=== PATIENT | male | born 1970 | race Caucasian/White ===

== ENCOUNTER → 2019-07-25 08:01 | Outpatient (CLI) | payer OTHER, SELFPAY ==
--- NOTE | 2019-07-25 08:11 | EKG12_ITS ---
Test Reason : PRE CR Blood Pressure : / mmHG Vent. Rate : 057 BPM Atrial Rate : 057 BPM P-R Int : 174 ms QRS Dur : 090 ms QT Int : 416 ms P-R-T Axes : 033 -06 007 degrees QTc Int : 404 ms Poor data quality, interpretation may be adversely affected Sinus bradycardia Otherwise normal ECG Confirmed by SHAYNA GOVEA, TRANG ([id number]), associate editor CLAUDIA PABLO ([id number] on 07/26/2019 11:07:40 AM Referred By: [facility] Confirmed By:TRANG CORRAL MD
--- NOTE | 2019-07-25 08:38 | PCM.CR.HP2 ---
CR - History & Physical - General Arrival date:: 07/25/19 Arrival time:: 08:00 Date of Referral:: 05/15/19 Date of CR Evaluation:: 07/25/19 Referring Physician: EMERSON WIGGINS Primary Diagnosis: PCI WITH STENT - History of Present Cardiac Event Onset Date: Enter Onset Date of cardiac illnesses in Comment field below Current stable Angina Pectoris:: No Acute Myocardial Infarction within 12 months:: Yes Coronary Artery Bypass Graft:: No Heart valve replacement or repair:: No PTCA or coronary stenting:: Yes Heart or Heart-Lung Transplant:: No Heart Failure EF <35%:: No Type of Symptoms:: CP, ACHE, TIGHTNESS Interventions with present event:: STENT X1 Were there any complications?: NONE - Medications Home Medications: Ambulatory Orders Medication Instructions Recorded Aspirin [Aspir 81] 81 mg PO 07/25/19 Atorvastatin Calcium [Lipitor] 80 mg PO QHS 07/25/19 Clopidogrel Bisulfate [Clopidogrel] 75 mg PO 07/25/19 Glipizide [Glucotrol Xl] 2.5 mg PO 07/25/19 Lisinopril [Zestril] 10 mg PO 07/25/19 Metformin HCl [Glucophage] 250 mg PO BID 07/25/19 Metoprolol Tartrate [Lopressor 12.5 mg PO BID 07/25/19 (Beta Livan)] - Allergies Allergies/Adverse Reactions: Allergies No Known Allergies Allergy (Verified 08/18/16 10:56) - Sleep Disorder Evaluation Hx of Sleep Apnea: No Do you snore loudly (louder than talking or can be heard through closed doors)?: Yes Do you often feel tired/ fatigued/ sleepy during daytime?: Yes Has anyone observed you stop breathing during sleep?: No History of Hypertension (for STOP score): Yes - PT STATES HE HAS [facility] INSURANCE ONLY AND WOULD HAVE TO GO THROUGHT THEM STOP Results: Positive Advanced Directives - Advanced Directives Power of Director Of Investigations: No - PT AND INFORMED OF [facility] MED RECORDS AVAIL FORMS Living Will: No Advance Directives Information Provided: No Advance Directives on File: No DNR Order?:: No Past Medical History - Family History Summary Family History: Family History (Last Updated 07/25/19 @ 09:09 by Hilda Samuel RN) Other Cardiovascular disease Social History - Smoking History Smoking Status: Former smoker Years Smokin Packs Smoked per Day: 2 Hx Smoking Cessation Date: 05/18/19 Hx Tobacco Use: Yes Hx Smoking Exposure: Yes - Alcohol Use Alcohol Usage: No - Substance Abuse Hx Substance Use: No - . - Occupation Occupation (List type of work in comments):: Employed Hours worked per day:: 8 - Hobbies, Recreation, Social Activities Hobbies: Watch TV - [employer] Recreational Activities: I am able to engage in a few activities Social Environment - Status Marital Status: - Current Living Arrangements Living Environment:: Spouse - Children How many children do you have?: 2 Do any of your children live nearby?: Yes - Safety Do you feel safe in your surroundings?: Yes - Assistance Do you need any assistance at home?: NONE Review of Systems - Review of Systems Hints: Right click = Denies ([place]ash). Left click = Reports ([place]) Review of Present Symptoms: Reports: Shortness of Breath with Exertion, Angina - SOB,HR INCREASE, EXAUSTED. Denies: Shortness of Breath at Rest, PVD, Operative Discomfort - Pain Is Patient Pain Free?: Yes Risk Factor Assessment - Chief Complaint Chief Complaint: CURRENT PCI PT WHO PRESENTS FOR INITIAL CR EVAL - Vital Signs Temperature: 98.6 F Respiratory Rate: 20 Pulse Ox: 96 Blood Pressure: 108/70 Nailbeds:: PINK - Pulse Pulse Rate: 58 Pulse Rhythm: Regular - Hypertension How long have you been treated?: SINCE STENT On medication(s)?: YES, LISINOPRIL, METOPROLOL Blood Pressure Sitting - Left Arm: 108/70 - Stress Stress: Recent, Long-standing, Work-related - Blood Cholesterol/Lipids Total Cholesterol (mg/dL) Goal = less than 200 mg/dL: 201 HDL Cholesterol (mg/dL) Goal = less than 40 mg/dL: 33 LDL Cholesterol (mg/dL) Goal = less than 70 mg/dL: 140 Triglycerides (mg/dL) Goal = less than 150 mg/dL: 114 - Diabetes Diabetic History: Type II Nutrition Referral for Diabetes: No - Obesity Height: 6 ft Weight:: 258 lb Weight in Pounds: 258.0 lbs Weight Source: Stated by Patient Body Mass Index (BMI): 34.9 Nutritional Referral for Obesity: No - NURITIONAL CONSULT THROUGH CT - Physical Inactivity Physical Inactivity: None - Risk Stratification Risk Guidelines: Lowest Risk: Risk Factor for Hypertension, Moderate Risk: Risk Factor for Smoking, Risk Factor for Dyslipidemia, Risk Factor for Diabetes, Risk Factor for Obesity, Risk Factor for Sedentary Lifestyle, Risk Factor for Depression - For Smoking Smoking Risk Guidelines: Smoking Low Risk: None or quit greater than 6 months ago. Smoking Moderate Risk: Smoker or quit 6 months or less ago. Smoking High Risk: Smoker - For Dyslipidemia Dyslipidemia Risk Guidelines: Low Risk: Moderate Risk: High Risk: 15-25% fat 25.1-29% fat >/= 30% fat. <7% sat fat 7-9% sat fat >9% sat fat. <150 mg chol 150-299 mg chol >/= 300 mg chol. LDL <100 LDL 100-129 LDL >/= 130. Chol/HDL ratio <5.0 Chol/HDL ratio 5.0-6.0 Chol/HDL ratio >6.0. Triglycerides <100 Triglycerides 100-149 Triglycerides >/= 150 - For Diabetes Mellitus Diabetes Risk Guidelines: Diabetes Low Risk: HgA1c <6.5% and/or FBG <120. Diabetes Moderate Risk: HgA1c 6.6-7.9% and/or FBG 120-180. Diabetes High Risk: HgA1c >/= 8% and/or FBG >180 - For Obesity/Overweight Obesity/Overweight Risk Guidelines: Obesity Low Risk: BMI <25.0. Obesity Moderate Risk: BMI 25-29.9. Obesity High Risk: BMI >/= 30.0 - For Hypertension Hypertension Risk Guidelines: Hypertension Low Risk: Systolic <120 and Diastolic <80. Hypertension Moderate Risk: Systolic 120-139 and Diastolic 80-89. Hypertension High Risk: Systolic >/= 140 and Diastolic >/= 90 - For Sedentary Lifestyle Sedentary Lifestyle Risk Guidelines: Sedentary Lifestyle Low Risk: >/= 1,500 kcal/week. Sedentary Lifestyle Moderate Risk: 700-1,499 kcal/week. Sedentary Lifestyle High Risk: < 700 kcal/week - For Depression Depression Risk Guidelines: Depression Low Risk: Not clinically depressed. Depression Moderate Risk: Mildly depressed. Depression High Risk: Clinically depressed - Family History Family History: Family History (Last Updated 07/25/19 @ 09:09 by Hilda Samuel RN) Other Cardiovascular disease Motivation - Motivation to Participate On a scale of 1 to 10, how prepared are you to commit to attending program?: 10 What do you see as barriers to successfully being able to complete the program?: POSSIBLE WORK AT LATER DATE What do you see as the benefits of succesfully completing the program? In other words, what do you hope to get out of participating in the program?: I WANT TO START FEELING BETTER Are there issues you are dealing with that will interfere with completing the program?: NONE Do you have a spouse or signficant other, family or friends who will help support you to complete the program?: SPOUSE
--- NOTE | 2019-07-25 08:39 | PCM.CR.ITP ---
Diagnosis - General Information Personal Learning Style:: Audio/Visual, Demonstration, Group, Individual Preference, Written Barriers to Learning: No Barriers Gave educational material for:: Treating Heart Disease, Emotions & Heart Disease, Stress Management & Relaxation, Sleep Disorders & Heart Disease, How The Heart Works - PT AND GIVEN THE ON-LINE PAMPHLET, What it means to have Heart Disease, How Coronary Artery Disease is Diagnosed, Heart Procedures, What Heart Medications Do, Risk Factors & Modifications, Living an Active Life, Nutrition - Education/Goals Individual Counseling: Initial Assessment: Abnormal Cholesterol Levels, High Blood Pressure, Overweight/Obesity, Diabetes, Hypertension, Sedentary Lifestyle, Stress, Family History of Heart Disease (under 65 years) Cardiac Rehabilitation Goals: 1. Maintain the individual as the primary focus of care. 2. To improve the patient's quality of life. 3. Identification of cardiac risk factors and provide cardiac risk factor management. 4. Enhance the psychosocial status of the patient. 5. Reconditioning enough to allow the patient to resume customary activities. 6. Control symptoms of cardiac disease Personal Goals: Initial Assessment: Improve management of stress and emotions, Improve energy level, Get back to work, or to resume activities faster, Improve muscle strength and endurance, Improve diet and eating habits (eat healthier) Scale for measuring improvement of personal goals: Enter appropriate number in Comments. 2 = Unchanged. 3 = Slightly Better. 4 = Moderate Improvement. 5 = Met my Goal - Diagnosis & Disease Process Outcomes/Goals: Pt IDs own risk factors & lifestyle modifications by Session 10, Verbalizes symptoms of angina & response by session 3., Pt independently manages, Other Additional Outcomes/Goals: - NEW START CR PT Plan/Interventions: Assist Pt to ID & engage in lifestyle modification to reduce CVD risk, Instruct on individual risk factors, Review symptoms of angina & emergency actions, Review secondary diagnosis & identify educational needs., Other see comment - Safety Referral to Physical Therapy: No Referral to [facility] Case Management: No Fall Risk Assessed:: No Assistive Devices:: None Exercise - Initial Assessment - Visit Date of Eval: 07/25/19 Mets: Pre-: >3 METS for 30 minutes by discharge - Physician Prescribed Exercise Modalities: Treadmill, Biodyne, Rower, Airdyne, NuStep, SciFit Frequency: 3x/week for 12 weeks [36 sessions] Intensity: 60-80% of age predicted maximum heart rate reserve Current METSs:: 3.0 Target Heart Rate:: 110-144 EKG Type: SINUS BRADYCADIA Current Physical Activity or Exercising minutes: NONE - Outcomes & Goals Goals:: Verbalizes understanding of THR, RPE & goal METS by session 6, Documents in home exercise log/reports 30 min aerobic 5 day/wk by DC, Demonstrates accurate pulse taking by DC, Other additional outcome/goals: see below - Intervention & Plan Exercise Program Goals: Instruct on personal THR & RPE, Instruct on MET level & personal MET goal - NEW PT CR START, Show patient to take own pulse /validate performance until accurate, Instruct on home exercise, Other additional plan/int - Physical Activity Home Exercise Physical Activity - Home Exercise: Safe Exercise, Warm-up, Self-monitoring, Cool-Down, Home Exercise > 30 min Daily, Sitting Time <3 hours/daily - Outcomes & Goals Outcomes/Goals: Demonstrates correct Warm-up/exercise Cool-Down (S3) if = 2.5 METs, Verbalizes symptoms of exercise intolerance by Session 3 (S3), Demonstrate safe equipment use (S3) & follows exercise prescrition (6), Other: See below - Intervention & Plan Plan/Intervention: Instruct warm-up & cool-down if exercising at > 2 METs, Instruct on symptoms of exercise intolerance & actions to take, Instruct & monitor on saf, Assess intial functional capacity & safety risk, Other See below Nutrition - Initial Assessment - Program Goals Nutrition Program Goals: LDL <100 optimal. 100 - 129 Near optimal. 130 - 159 Borderline High. 160 - 189 High. Total Cholesterol <200 desirable. 200 - 239 Borderline High. >/= 240 High. HDL < 40 Low >/=60 High. Triglycerides <150 desirable. <199 optimal. VlDL 5 - 40. HgbA1C <7%. BMI <25 Patient has diagnosis of Hyperlipidemia (ICD E78)?: Yes - Visit Date of Assessment:: 07/25/19 - Cholesterol/Lipids Triglycerides (mg/dL): 114 Total Cholesterol (mg/dL): 201 LDL Cholesterol (mg/dL): 140 HDL Cholesterol (mg/dL): 33 Lipid Medication: ATORVASTATIN Determine presence & major risk factors that modify LDL goal: Hypertension or hypertensive medication, Low HDL cholesterol <40 mg/dL*, Family history of premature CHD in Male < 55 years: female <65 yearsFa Outcomes/Goals: Pt IDs own risk factors & lifestyle modifications by Session 10, Verbalizes symptoms of angina & response by session 3., Pt independently manages, Other Additional Outcomes/Goals: Intervention/Plan: Advocate for lipid panel cholesterol medication if applicable, Instruct on personal lipid levels & lipid goals/NCEP guidelines, Instruct on cholesterol, Other additional plan/int - Diabetes (Other Core Measures) Diabetes Type: Diagnosis Type II ICD-10 E11 Insulin dependent injection/pump?: No Referral to Diabetic Clinic:: No - PT STATES HE [facility] Outcomes/Goals:: Able to state symptoms of, Able to state, Able to state, Other additional Intervention/Plan:: Instruct on, Refer to, Instruct on, Other - Weight Mgt (Other Care) Not Applicable: Yes Height: 6 ft Weight:: 258 lb BMI: 34.9 Diagnosis Overweight/Obesity BMI> 30% ICD-10 E66: Yes Outcomes/Goals: Pt sets, maintains & shows weight loss goal & trend during rehab, Other additional outcomes/goals - Healthy Eating Habits Will attend diet classes:: Yes Outcomes/Goals:: Consume diet rich in vegs,fruits,whole grain/high fiber,fish,lean meat, Limit sat/trans fats,cholesterol & added salts & sugars, Other additional outcome/goals: Intervention/Plan:: Assess current eating habits, Other Additional plan/interventions - NEW START CR PATIENT - Education Gave educational materials for:: Signs & symptoms of hypoglycemia, Signs & symptoms of hyperglycemia, Relate diabetes to coronary artery disease, Healthy eating - NEW PT CR Medical - Initial Assessment - Visit Date of Eval: 07/25/19 - Medication Compliance Preventative Medication(s):: Aspirin, CLEO inhibitor, Clopidogrel/P2Y12 inhibit, Statin/lipid, Beta sera H/O mental health issues: depression, anxiety, or addiction?: No Doesn?t believe in the benefits of treatment?: No Believes medications are unnecessary or harmful?: No Has a concern about medication side effects?: No Expresses concern over the cost of medications?: No Outcomes/Goals: Verbalizes medications,desired effect & common side effects @ DC, Pt self-reports following medication regimen, Keeps card in wallet w/medications listed by DC, Other additional outcome/goals: Interventions/plans: Instruct on medication effects & side effects, Review medication list w/patient every two weeks, Instruct importance of taking meds as ordered & assist problem solving, Other additional - Tobacco Use Tobacco Use: Non-smoker How long ago did you quit using tobacco products?: Less than 6 months ago Years Smokin Do you use smokeless tobacco?: No Outcomes/Goals: Smoking cessation achieved or maintained by discharge, Identify aids/strategies for achieving smoking cessation by session 6, Other additional outcome/goals Interventions/plan: Instruct on effects of smoking & provide smoking cessation resource, Assist pt to set quit date & provide encouragement, Assist pt to develop strategies to achieve/maintain quit date, Assist pt w/nicotine replacement & medication for cessation success, Other additional plan/interventions - Hypertension Hypertension Diagnosis:: Hypertension ICD-10 I10 [place] [employer] Hypertension Guidelines: [place] [employer] Hypertension Guidelines. Normal BP Less than 120/80. Elevated BP 120/80. Hypertension Stage 1: BP 130-139/80-89. Hypertesnion Stage 2: BP 140 or higher/90 or higher. Hypertension Crisis: BP higher than 180/120 Outcomes/Goals: Able to verbalize/achieve optimal blood pressure <130/80, Incorporates diet changes & exercise for blood pressure control by DC, Other additional outcomes/goals Interventions/plan: Instruct on optimal blood pressure, hypertension & medications, Instruct on effects of sodium, alcohol, stress, exercise &hypertension - NEW CR PT, Other additional plan/interventions - Tobacco Cessation Referral Smoking Cessation Referral:: No Individual Education/Counseling:: No - MAY ADDRESS AT LATER DATE DUE TO RECENT EX-SMOKER Education Schedule Given:: Yes Psychosocial - Initial Assess - VIsit Date of Eval: 07/25/19 History of previous Mental disease:: No Self-reported stressors: Medical/Health, Other - WORK, Recent Illness - Target Goals Target Goals: Assess presence or absence of depression. Using a valid screening tool, maximizes coping skills. Positive support system - Psychosocial Test Tool Used:: PHQ-9 Questionnaire phq-9 Severity: Severity. 1-4 Minimal Depression. 5-9 Mild Depression. 10-14 Moderate Depression. 15-19 Moderately Sever Depression. 20-27 Severe Depression. Rule: See PHQ-9 Score: 17 - DISCUSSED WITH PT/ ABOUT POSS DEPRESSION, SEEK HELP, INFORM DR NEEDED Total Score:: 17 - Referral to Behavioral Health PS - Interventions: Yes Referral to Behavioral Health if PHQ-9 score >9:, Yes Referral to Physician if PHQ-9 if score is 5-9:, Yes Attend Stress Management Classes - CR CLASSES, No Referral to [facility] - Outcomes/Goals: See list Psychosocial Outcomes/Goals:: ID's personal stressors & 2 strategies to manage stress by discharge - Intervention/Plan: See List Interventions/Plan:: Assess stressors,coping strategies & signs of derpression on admission, Instruct/assist pt to develop coping & personal stress Mgt strategies, Refer to Behavioral Health if appropriate, Refer to Physician if appropriate, Instruct patient to recognize signs & symptoms of depression, Instruct patient to recog Patient Health Questionnaire Initial Assessment 1. Little interest or pleasure in doing things: Nearly every day 2. Feeling down, depressed, or hopeless: More than half the days 3. Trouble falling or staying asleep, or sleeping too much: Nearly every day 4. Feeling tired or having little energy: Nearly every day 5. Poor appetite or overeating: Not at all 6. Feeling bad about yourself -- or that you are a failure or have let yourself or your family down: More than half the days 7. Trouble concentrating on things, such as reading the newspaper or watching television: Several days 8. Moving or speaking so slowly that other people could have noticed. Or the opposite - being so fidgety or restless that you have been moving around a lot more than usual: Nearly every day 9. Thoughts that you would be better off , or of hurting yourself in some way: Not at all How difficult have these problems made it for you to do your work, take care of things at home, or get along with other people?: Somewhat difficult - SPOKE WITH PT/ ABOUT SEEK, REPORT SYMPTOMS OF DEPRESSION WITH PMD OR CUSTOMER CARE REPRESENTATIVE NEEDED Total Score: 17 CHANA-Q SV Test - Statements CAD is a disease of the arteries in the heart: False Examples of risk factors for heart disease: True Angina is chest pain or discomfort: True The benefits of resistance training include: I Don't Know Eating more meat and dairy products: I Don't Know Anti-platelet medications such as aspirin are important: I Don't Know The only effective way to manage stress: False An exercise warm-up slowly increases heart rate: True The statin medications lower cholesterol: I Don't Know To control blood pressure, lower the amount of sodium: I Don't Know If someone gets chest discomfort during walking: False Transfats are partially hydrogenated vegetable oils: True Sleep apnea that is not treated increases the risk: I Don't Know To control cholesterol, one should become a vegetarian: False Someone knows if he/she is exercising at the right level: True Diabetes cannot be prevented with exercise & health eating: False Stress is a large risk for heart attack: True A diet that can help lower blood pressure is rich in: True Self-Efficacy Initial Assessment We would like to know how confident you are in doing certain activities. Please select your confidence level for:: Select your confidence level for the following using the scale 1-10 where 1 is not at all confident and 10 is totally confident. Your score is the average of all 6 responses. Fatigue: How confident are you that you can keep the fatigue caused by your disease from interfering with the things you want to do? Select Number: 3 Physical Discomfort or Pain: How confident are you that you can keep the physical discomfort or pain of your disease from interfering with the things you want to do? Select Number: 6 Emotional Distress: How confident are you that you can keep the emotional distress caused by your disease from interfering with the things you want to do? Select Number: 4 Other Symptoms or Health Problems: How confident are you that you can keep other symptoms or health problems from interfering with the things you want to do? Select Number: 5 Different Tasks and Activities: How confident are you that you can do the different tasks and activities needed to manage your health condition so as to reduce your need to see a doctor? Select Number: 5 Medication: How confident are you that you can do things other than just taking medication to reduce how much your illness affects your everyday life? Select Number: 7 Total Score:: 5 Nutrition Survey - Nutrition Survey Instructions Scoring Instructions: Scoring is as follows: Yes = 1 points. No = 0 point. Patient score that is >/=12 is considered to be at potential nutritional risk and could benefit from a referral to a registered dietitian. - Nutrition Survey Initial Have you lost >10 lbs over the past 2 months without trying?: No Are you following a special diet at home for diabetes, low fat, or low salt?: Yes Are you interested in meeting with a dietitian for help understanding your diet?: No Do you eat less than 3 meals a day?: No Do you eat fatty meats (adamson, sausage, ribs, etc), fried foods, desserts, large amounts of salad dressings, margarine, butter, or cheese most days?: Yes Do you have food allergies? [Enter types in comment field]: No Do you eat in restaurants more than 3 times a week?: No Do you season food with salt, seasoning salt, or garlic salt?: No Do you used canned, boxed, frozen meals, or soups, seasoning packets?: No Total Score:: 2
[2019-07-25 09:27] VITALS: BP 108/70; PULSE 58; RESP 20; TEMP 37; O2SAT 96; BMI 34.9
[2019-07-25 10:16] VITALS: BMI 34.9
== END ==
DX: Z95.5 Presence of coronary angioplasty implant and graft (principal)
CPT/HCPCS: 93005

== ENCOUNTER 2019-07-26 11:51 | Emergency (ER) | payer OTHER, SELFPAY ==
[2019-07-25 09:27] VITALS: BMI 34.9
[2019-07-25 10:16] VITALS: BMI 34.9
[2019-07-26 11:52] VITALS: BP 147/58; PULSE 71; RESP 18; TEMP 36.7; O2SAT 100; BMI 34.8
--- NOTE | 2019-07-26 12:01 | EKG12_ITS ---
Test Reason : REPEAT EKG Blood Pressure : / mmHG Vent. Rate : 056 BPM Atrial Rate : 056 BPM P-R Int : 164 ms QRS Dur : 098 ms QT Int : 434 ms P-R-T Axes : 030 -11 011 degrees QTc Int : 418 ms Sinus bradycardia Otherwise normal ECG Confirmed by CRYSTAL GOVEA, DENILSON ([id number]), editorial manager ANA BENAVIDEZ ([id number]) on 07/31/2019 2:27:34 PM Referred By: [facility] Confirmed By:AUDELIA ROJAS MD
--- NOTE | 2019-07-26 12:04 | RAD_ITS ---
STUDY: X-RAY CHEST REASON FOR EXAM: Male, 49 years old. CHEST PAIN; -- H/O MO, STENT TECHNIQUE: Single frontal view of the chest. COMPARISON: None. FINDINGS: Cardiac silhouette unremarkable. Pulmonary vascularity unremarkable. Aorta unremarkable. No focal airspace opacities. No pleural effusions. Upper abdomen unremarkable. Osseous structures intact. No pneumothorax. RAD/Chest 1 View (Portable) IMPRESSION: No acute cardiopulmonary findings Electronically Signed: Alden Barajas, at 13:21 EST Tel , Service support ,
--- NOTE | 2019-07-26 12:09 | ED.DCSUM_ITS ---
History of Present Illness Chief Complaint: Chest Pain Informant: Patient Onset: Today Context: Gradual Onset Timing: Continuous Current Severity: Moderate Maximum Severity: Moderate Narrative: The patient is a 49-year-old male with medical history significant for coronary vascular disease status post stenting in May the presents to the emergency department nausea. Patient states that he had myocardial infarction and was hospitalized at [facility]. He had drug-eluting stent placed. He was on Brilinta for a month and then transition to Plavix. He states he is been doing cardiac rehab and felt like he was recovering. He states today, he just had generalized malaise and felt nauseated. He was concerned because these were the same symptoms that he had with his prior IL. He has no chest pain or dyspnea, but states he did not have this when he had the heart attack. He has been compliant with all of his medications. Prior similar symptoms: Yes Recent Illness/Hospitalization: No Past Medical History - Allergies and Home Meds Allergies/Adverse Reactions: Allergies No Known Allergies Allergy (Verified 08/18/16 10:56) Primary Care Physician: LORENA SPANGLER [Other] Prior records reviewed: Yes Past Medical History: - - Hypertension, hypercholesterolemia, Surgical History: noncontributory - diabetes Smoking Status: Former smoker Review of Systems General: Denies: Chills, Fever, Sweats Eyes: Denies: Visual changes - bilaterally, Diplopia ENT: Denies: Rhinorrhea, Sore throat Cardiovascular: Denies: Chest pain, Palpitations Respiratory: Denies: Dyspnea, Cough, Dyspnea on exertion Gastrointestinal: Reports: Nausea. Denies: Abdominal pain, Vomiting, Diarrhea, Melena, Hematochezia Genitourinary: Denies: Dysuria, Hematuria, Frequency Musculoskeletal: Denies: Back pain, Extremity Pain Skin: Denies: Rash, Wounds Neurological: Denies: Headache, Weakness, Numbness Physical Exam Vital Signs/Narrative: Vital Signs Temp Pulse Resp BP Pulse Ox 07/26/19 11:52 98.1 F 71 18 147/58 H 100 Inital Vital Signs reviewed: Yes General: Well nourished, Well developed, No Acute Distress Head: Normocephalic, Atraumatic Eyes: Perrl, EOMI ENT: Moist mucous membranes, No rhinorrhea Neck: Supple, Nontender Cardiovascular: Regular rate, Regular rhythm, No murmurs Respiratory: No distress, CTA bilaterally, Chest nontender Abdomen: Soft, Nontender, Nondistended, Normal bowel sounds Back: Nontender, Normal Inspection Extremities: Nontender, No edema Skin: Normal color, No rash Neurological: Alert, Oriented x3, Cranial nerves II-XII grossly intact, Normal Strength, Normal Sensation Psychological: Normal affect, Normal Mood Diagnostic/Tx/Re-eval Chest X-Ray - ED: 2 View, Normal, Heart, Lungs, Mediastinum Clinical Impression(s) from Imaging Studies Chest X-Ray 07/26/19 12:04 IMPRESSION: No acute cardiopulmonary findings Electronically Signed: Alden Barajas, at 13:21 EST Tel , Service support , Abnormal Lab Results 07/26/19 07/26/19 12:15 12:15 WBC 7.8 RBC 5.01 Hgb 14.7 Hct 43.9 MCV 87.6 MCH 29.3 MCHC 33.5 RDW Std Deviation 39.8 RDW Coeff of Graham 12.5 Plt Count 217 MPV 10.3 Immature Gran % (Auto) 0.400 Neut % (Auto) 60.6 Lymph % (Auto) 25.4 Carson % (Auto) 9.1 Eos % (Auto) 4.0 Baso % (Auto) 0.5 Absolute Neuts (auto) 4.7 Absolute Lymphs (auto) 1.98 Nucleated RBC % 0 Sodium 140 Potassium 3.6 Chloride 108 H Carbon Dioxide 25.0 Anion Gap 7 BUN 15 Creatinine 0.94 Estim Creat Clear Calc 103.19 Est GFR (MDRD) Af Amer 110 Est GFR (MDRD) Non-Af 91 BUN/Creatinine Ratio 16.0 Glucose 169 H Calcium 8.9 Magnesium 2.0 Troponin I < 0.015 - Rhythm Strip Rhythm Strip: Sinus Rhythm Rate: 80 Ectopy: None - EKG Initial EKG Interpretation: Sinus Rhythm, No Acute Injury Pattern Prior: Unchanged Follow-up EKG Interpretation: Sinus Rhythm, No Acute Injury Pattern Prior: Unchanged - Medical Decision Making The patient presents to the emergency department with nausea and generalized malaise. He states he is with similar symptoms to when he had his IL with stenting. EKG was obtained which was sinus rhythm without acute ischemia. Compared to his prior from 2 days ago, there was no acute change. He declined nitro, but was given Zofran and aspirin. Initial cardiac enzymes are negative. He did have recurrence of symptoms where he had sweatiness of his palms, but no chest pain. His EKG was repeated and is still unchanged. I did discuss options with the patient. He is been compliant with his medications, have recent heart cath, and has not had exertional symptoms. 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 He was agreeable for a repeat 3-hour cardiac enzymes. This is currently pending. As long as this is negative, given how atypical his symptoms are and he has no chest pain or dyspnea, I do feel that this would be an appropriate plan of care. Impression 1. Nausea ED Disposition - Plan for ED Patient: Instructions: CHEST PAIN, Uncertain Cause Referrals: LORENA SPANGLER [Other]
[2019-07-26 12:21] VITALS: O2SAT 99
[2019-07-26] MEDS: Aspirin 81 MG TAB.CHEW 324 MG PO (12:24)
[2019-07-26] MEDS: 0.9% Normal Saline 1,000 ML 150 ML IV (12:25)
[2019-07-26] MEDS: Ondansetron 4 MG/2 ML Vial IV (12:25)
--- NOTE | 2019-07-26 12:28 | ED.RN ---
pt c/o chest heaviness, just not feeling right and my hands are clammy. MD aware. Respiratory called for another EKG.
--- NOTE | 2019-07-26 12:30 | EKG12_ITS ---
Test Reason : CP, HX OF ND Blood Pressure : / mmHG Vent. Rate : 062 BPM Atrial Rate : 062 BPM P-R Int : 174 ms QRS Dur : 096 ms QT Int : 420 ms P-R-T Axes : 042 -17 005 degrees QTc Int : 426 ms Normal sinus rhythm Normal ECG Confirmed by CRYSTAL GOVEA, DENILSON ([id number]), film and video editor ANA BENAVIDEZ ([id number]) on 07/31/2019 2:31:29 PM Referred By: RANDALL Confirmed By:AUDELIA ROJAS MD
[2019-07-26 12:36] LABS: Absolute Lymphocyte Count 1.98 X10^3/uL (0.83-4.51); Absolute Neutrophil Count 4.7 X10^3/uL (2.0-7.7); Basophil# 0.04 X10^3/uL; Basophil% 0.5 % (0-1); Eosinophil# 0.31 X10^3/uL; Hematocrit 43.9 % (40-54); Hemoglobin 14.7 g/dL (13.0-16.5); Lymphocyte # 1.98 X10^3/ul (4.0); Lymphocyte % 25.4 % (19-41); Mean Corp Hgb Conc 33.5 g/dL (32-36); Mean Corpuscular Hgb 29.3 pg (27.0-32.0); Mean Corpuscular Volume 87.6 fL (80-94); Mean Platelet Vol. 10.3 fl (6.2-12.0); Monocyte# 0.71 X10^3/uL; Monocyte% 9.1 % (0-10); NRBC Flagged by Analyzer 0 % (0-5); Neutrophil # 4.71 X10^3/uL (2.7-7.7); Neutrophil % 60.6 % (47-70); Platelet Count 217 K/mm3 (150-450); RBC Distribution Width CV 12.5 % (11.6-14.6); RBC Distribution Width SD 39.8 fl (35.1-43.9); Red Blood Count 5.01 M/mm3 (4.6-6.2); White Blood Count 7.8 K/mm3 (4.4-11.0)
[2019-07-26 12:58] LABS: Anion Gap 7 (5-15); BUN 15 mg/dL (7-18); Calcium,Total 8.9 mg/dL (8.5-10.1); Chloride 108 mmol/L (98-107); Creatinine, Serum 0.94 mg/dL (0.70-1.30); EST Glomerular Filtration Rate 91 mL/min (>60); Est Glom Filt Rate - Afr Amer 110 mL/min (>60); Estimated Creatinine Clearance 103.19 ml/min; Glucose 169 mg/dL (74-106); Potassium 3.6 mmol/L (3.5-5.1); Sodium Level 140 mmol/L (136-145)
--- NOTE | 2019-07-26 13:26 | ED.RN ---
pt not given nitro d/t no longer having chest heaviness. md aware.
[2019-07-26] MEDS: Acetaminophen 500 MG Tablet 1000 MG PO (14:28)
[2019-07-26 14:29] VITALS: BP 114/62; PULSE 53; O2SAT 99
[2019-07-26 16:45] VITALS: BP 112/77; PULSE 57; RESP 12; O2SAT 97
== END 2019-07-26 16:50 | disposition home or self-care (01) ==
LOC: ED 12:35
PROVIDERS: Emergency Provider Emergency Medicine
DX: R07.9 Chest pain, unspecified (principal); R11.0 Nausea; I25.10 Atherosclerotic heart disease of native coronary artery without angina pectoris; E11.9 Type 2 diabetes mellitus without complications; I10 Essential (primary) hypertension; E78.00 Pure hypercholesterolemia, unspecified; Z79.02 Long term (current) use of antithrombotics/antiplatelets; I25.2 Old myocardial infarction; Z87.891 Personal history of nicotine dependence; Z95.5 Presence of coronary angioplasty implant and graft
CPT/HCPCS: 36415; 71045; 80048; 83735; 84484; 85025; 93005; 96361; 96374; 99285; J7030; J2405

== ENCOUNTER 2019-08-04 08:00 | Outpatient (RCR) | payer OTHER, SELFPAY ==
[2019-07-25 10:16] VITALS: BMI 34.9
[2019-07-26 11:54] VITALS: BMI 34.9
== END 2019-08-05 23:59 ==
LOC: CR 08:00
DX: Z95.5 Presence of coronary angioplasty implant and graft (principal)
CPT/HCPCS: 93798

== ENCOUNTER 2019-08-14 08:00 | Outpatient (RCR) | payer OTHER, SELFPAY ==
[2019-07-25 10:16] VITALS: BMI 34.9
[2019-08-06 01:08] VITALS: BMI 34.8
--- NOTE | 2019-08-23 06:57 | CR.ITP_ITS ---
Diagnosis - General Information Admitting Diagnosis: PCI W/CORONARY STENTING Personal Learning Style:: Audio/Visual, Written Barriers to Learning: No Barriers Stage of change r/t lifestyle modifications:: Action Gave educational material for:: Treating Heart Disease, Emotions & Heart Disease, Stress Management & Relaxation, Sleep Disorders & Heart Disease, How The Heart Works, What it means to have Heart Disease, How Coronary Artery Disease is Diagnosed, Heart Procedures, What Heart Medications Do, Risk Factors & Modifications, Living an Active Life, Nutrition - Education/Goals Individual Counseling: Initial Assessment: Abnormal Cholesterol Levels, High Blood Pressure, Overweight/Obesity Cardiac Rehabilitation Goals: 1. Maintain the individual as the primary focus of care. 2. To improve the patient's quality of life. 3. Identification of cardiac risk factors and provide cardiac risk factor management. 4. Enhance the psychosocial status of the patient. 5. Reconditioning enough to allow the patient to resume customary activities. 6. Control symptoms of cardiac disease Personal Goals: Initial Assessment: Improve management of stress and emotions - 3, Improve energy level - 3, Get back to work, or to resume activities faster - 3, Improve muscle strength and endurance - 3, Improve diet and eating habits (eat healthier) - 3, Control risk factors (learn risk factor modification) - 3 Scale for measuring improvement of personal goals: Enter appropriate number in Comments. 2 = Unchanged. 3 = Slightly Better. 4 = Moderate Improvement. 5 = Met my Goal - Diagnosis & Disease Process Outcomes/Goals: Pt IDs own risk factors & lifestyle modifications by Session 10, Verbalizes symptoms of angina & response by session 3., Pt independently manages Plan/Interventions: Assist Pt to ID & engage in lifestyle modification to reduce CVD risk, Instruct on individual risk factors, Review symptoms of angina & emergency actions, Review secondary diagnosis & identify educational needs. 30 day Reassessments:: Progressing - Safety Referral to Physical Therapy: No Referral to [facility] Case Management: No Fall Risk Assessed:: Yes Assistive Devices:: None Exercise - 30-day Assessment - Visit Date of Eval: 08/23/19 Session #:: 7 Comments:: Patient has postponed participating for 14-days due to the COVID19 virus as a precaution. - Physician Prescribed Exercise Modalities: Treadmill, Rower, Airdyne, NuStep Frequency: 3x/week for 12 weeks [36 sessions] Intensity: 60-80% of age predicted maximum heart rate reserve Current METSs:: 4.0 increase from 3.0 Target Heart Rate:: 110-144 Current RPE:: 11-12 Maximum Excercise HR:: 106 Resting Blood Pressure: 100/54 Maximum Exercise Blood Pressure: 130/74 EKG Type: NSR to sinus tachycardia with rare PVCs and PACs - Outcomes & Goals Goals:: Verbalizes understanding of THR, RPE & goal METS by session 6, Documents in home exercise log/reports 30 min aerobic 5 day/wk by DC, Demonstrates accurate pulse taking by DC Comment:: Patient will be walking at home during his absence. - Intervention & Plan Exercise Program Goals: Instruct on personal THR & RPE, Instruct on MET level & personal MET goal, Show patient to take own pulse /validate performance until accurate, Instruct on home exercise - 30-day Reassessments 30 day Reassessments:: Progressing - Physical Activity Home Exercise Physical Activity - Home Exercise: Safe Exercise, Warm-up, Self-monitoring, Cool-Down, Home Exercise > 30 min Daily, Sitting Time <3 hours/daily - Outcomes & Goals Outcomes/Goals: Demonstrates correct Warm-up/exercise Cool-Down (S3) if = 2.5 METs, Verbalizes symptoms of exercise intolerance by Session 3 (S3), Demonstrate safe equipment use (S3) & follows exercise prescrition (6) - Intervention & Plan Plan/Intervention: Instruct warm-up & cool-down if exercising at > 2 METs, Instruct on symptoms of exercise intolerance & actions to take, Instruct & monitor on saf, Assess intial functional capacity & safety risk - 30-day Reassessments 30 day Reassessments:: Progressing Nutrition - 30-Day Assessment - Program Goals Nutrition Program Goals: LDL <100 optimal. 100 - 129 Near optimal. 130 - 159 Borderline High. 160 - 189 High. Total Cholesterol <200 desirable. 200 - 239 Borderline High. >/= 240 High. HDL < 40 Low >/=60 High. Triglycerides <150 desirable. <199 optimal. VlDL 5 - 40. HgbA1C <7%. BMI <25 Patient has diagnosis of Hyperlipidemia (ICD E78)?: Yes - Visit Date of Assessment:: 08/23/19 Session #:: 7 - Cholesterol/Lipids Determine presence & major risk factors that modify LDL goal: Cigarette smoking, Hypertension or hypertensive medication, Age men > 45 years; women >/= 55 years Outcomes/Goals: Pt IDs own risk factors & lifestyle modifications by Session 10, Verbalizes symptoms of angina & response by session 3., Pt independently manages Intervention/Plan: Instruct on personal lipid levels & lipid goals/NCEP guidelines, Instruct on cholesterol Referral to dietitian:: No - Patient is not interested. 30-day Reassessments:: Progressing - Weight Mgt (Other Care) Not Applicable: Yes Height: 6 ft Weight:: 259 lb 14.4 oz BMI: 35.2 Diagnosis Overweight/Obesity BMI> 30% ICD-10 E66: Yes Diagnosis High BMI/Morbid Obesity BMI> 35% ICD-10 Z68: Yes Outcomes/Goals: Pt sets, maintains & shows weight loss goal & trend during rehab Intervention/Plan: Instruct on ideal BMI & set weight loss goal w/patient, Assist pt to ID & incorporate diet changes for weight loss by S9, Encourage goal of using 250-300dcal per session for weight loss 30 day Reassessments:: Progressing - Healthy Eating Habits Will attend diet classes:: Yes Outcomes/Goals:: Consume diet rich in vegs,fruits,whole grain/high fiber,fish,lean meat, Limit sat/trans fats,cholesterol & added salts & sugars Intervention/Plan:: Assess current eating habits 30-day Reassessments:: Progressing - Education Gave educational materials for:: Healthy eating Medical- 30-Day Assessment - Visit Date of Eval: 08/23/19 Session #:: 7 - Medication Compliance Preventative Medication(s):: Aspirin, Clopidogrel/P2Y12 inhibit, Beta sera H/O mental health issues: depression, anxiety, or addiction?: No Doesn?t believe in the benefits of treatment?: No Believes medications are unnecessary or harmful?: No Has a concern about medication side effects?: No Expresses concern over the cost of medications?: No Outcomes/Goals: Verbalizes medications,desired effect & common side effects @ DC, Pt self-reports following medication regimen, Keeps card in wallet w/medications listed by DC Interventions/plans: Instruct on medication effects & side effects, Review medication list w/patient every two weeks, Instruct importance of taking meds as ordered & assist problem solving 30-day Reassessments:: Progressing - Tobacco Use Tobacco Use: Non-smoker How long ago did you quit using tobacco products?: Less than 6 months ago 30-day Reassessments:: Met - Hypertension Hypertension Diagnosis:: Hypertension ICD-10 I10 Resting Blood Pressure:: 100/54 - controlled with medication [place] [employer] Hypertension Guidelines: [place] [employer] Hypertension Guidelines. Normal BP Less than 120/80. Elevated BP 120/80. Hypertension Stage 1: BP 130-139/80-89. Hypertesnion Stage 2: BP 140 or higher/90 or higher. Hypertension Crisis: BP higher than 180/120 Peak Exercise Blood Pressure:: 144/80 Outcomes/Goals: Able to verbalize/achieve optimal blood pressure <130/80, Incorporates diet changes & exercise for blood pressure control by DC Interventions/plan: Instruct on optimal blood pressure, hypertension & medications, Instruct on effects of sodium, alcohol, stress, exercise &hypertension 30 day Reassessments:: Progressing - Tobacco Cessation Referral Smoking Cessation Referral:: No Individual Education/Counseling:: No Education Schedule Given:: Yes Psychosocial - 30-Day Assess - VIsit Date of Eval: 08/23/19 Session #:: 7 Not Applicable: No History of previous Mental disease:: Yes History of Emotional Disorders: Anxious, Depression - Target Goals Target Goals: Assess presence or absence of depression. Using a valid screening tool, maximizes coping skills. Positive support system - Psychosocial Test Tool Used:: Synthelis QOL Cardiac, PHQ-9 Questionnaire phq-9 Severity: Severity. 1-4 Minimal Depression. 5-9 Mild Depression. 10-14 Moderate Depression. 15-19 Moderately Sever Depression. 20-27 Severe Depression. Rule: - Referral to Behavioral Health PS - Interventions: Yes Attend Stress Management Classes, No Referral to Behavioral Health if PHQ-9 score >9:, No Referral to [facility], No Referral to Physician if PHQ-9 if score is 5-9: - Outcomes/Goals: See list Psychosocial Outcomes/Goals:: ID's personal stressors & 2 strategies to manage stress by discharge - Intervention/Plan: See List Interventions/Plan:: Assess stressors,coping strategies & signs of derpression on admission, Instruct/assist pt to develop coping & personal stress Mgt strategies, Instruct patient to recognize signs & symptoms of depression, Instruct patient to recog - 30-day Reassessments: 30 day Reassessments:: Progressing Patient Health Questionnaire 30-Day Re-eval Assessment 1. Little interest or pleasure in doing things: Nearly every day 2. Feeling down, depressed, or hopeless: More than half the days 3. Trouble falling or staying asleep, or sleeping too much: Nearly every day 4. Feeling tired or having little energy: Nearly every day 5. Poor appetite or overeating: Not at all 6. Feeling bad about yourself -- or that you are a failure or have let yourself or your family down: Several days 7. Trouble concentrating on things, such as reading the newspaper or watching television: Several days 8. Moving or speaking so slowly that other people could have noticed. Or the opposite - being so fidgety or restless that you have been moving around a lot more than usual: Nearly every day 9. Thoughts that you would be better off , or of hurting yourself in some way: Not at all How difficult have these problems made it for you to do your work, take care of things at home, or get along with other people?: Somewhat difficult Total Score: 16 Self-Efficacy 30-Day Re-eval Assessment We would like to know how confident you are in doing certain activities. Please select your confidence level for:: Select your confidence level for the following using the scale 1-10 where 1 is not at all confident and 10 is totally confident. Your score is the average of all 6 responses. Fatigue: How confident are you that you can keep the fatigue caused by your disease from interfering with the things you want to do? Select Number: 4 Physical Discomfort or Pain: How confident are you that you can keep the physical discomfort or pain of your disease from interfering with the things you want to do? Select Number: 7 Emotional Distress: How confident are you that you can keep the emotional distress caused by your disease from interfering with the things you want to do? Select Number: 5 Other Symptoms or Health Problems: How confident are you that you can keep other symptoms or health problems from interfering with the things you want to do? Select Number: 6 Different Tasks and Activities: How confident are you that you can do the different tasks and activities needed to manage your health condition so as to reduce your need to see a doctor? Select Number: 6 Medication: How confident are you that you can do things other than just taking medication to reduce how much your illness affects your everyday life? Select Number: 8 Total Score:: 6
[2019-08-23 07:11] VITALS: BP 100/54; BP 144/80; BMI 35.2
--- NOTE | 2019-09-08 06:24 | PCM.CR.ITP ---
Exercise - Initial Assessment - Visit Date of Eval: 09/08/19 - Patient CR suspended due to COVID-19 and Cardiac Rehab closing for September 2019.
== END 2019-09-05 23:59 ==
LOC: CR 08:00
DX: I25.10 Atherosclerotic heart disease of native coronary artery without angina pectoris (principal); Z95.5 Presence of coronary angioplasty implant and graft; I10 Essential (primary) hypertension; E11.9 Type 2 diabetes mellitus without complications; E66.9 Obesity, unspecified; Z87.891 Personal history of nicotine dependence
CPT/HCPCS: 93798

== ENCOUNTER 2019-09-04 10:59 | Emergency (ER) | payer OTHER, SELFPAY ==
[2019-08-06 01:08] VITALS: BMI 34.8
[2019-09-04 11:02] VITALS: BP 165/76; PULSE 69; RESP 17; TEMP 36.7; O2SAT 98; BMI 35.6
--- NOTE | 2019-09-04 11:21 | EKG12_ITS ---
Test Reason : COUGH Blood Pressure : / mmHG Vent. Rate : 062 BPM Atrial Rate : 062 BPM P-R Int : 176 ms QRS Dur : 096 ms QT Int : 406 ms P-R-T Axes : 039 -19 013 degrees QTc Int : 412 ms Normal sinus rhythm Low Voltage QRS (Limb Leads) Confirmed by SHAYNA GOVEA, TRANG ([id number]), senior technical editor LEROY PHILLIPS ([id number]) on 09/06/2019 9:34:57 AM Referred By: BRITANY Confirmed By:TRANG CORRAL MD
--- NOTE | 2019-09-04 11:23 | ED.VIS.GEN ---
History of Present Illness Chief Complaint: Cough Informant: Patient Narrative: Patient reports for the past 3 weeks he has not felt well. Patient states that he had ear pain and congestion headache and cough. He went to an urgent care was given a prescription for amoxicillin. He finished that course but still did not feel any better. He had a fever last week but none since. He states that he is felt very rundown and short of breath at times. He notes particularly on Wednesday he went shopping with his and after only about 10 to 15 minutes of walking was very short of breath and had to stop. He had an KS in May and had a single stent placed. He denies any chest pain. No leg swelling. A small amount of diarrhea last week. Urinating normally. Since he still has not felt better after several weeks he went back to urgent care but they advised him that they could not see him. He called his PCP at the [facility] they advised him to come to emergency. Past Medical History - Allergies and Home Meds Allergies/Adverse Reactions: Allergies No Known Allergies Allergy (Verified 09/04/19 11:01) Primary Care Physician: [place] [Primary Care Provider] - Surgical History: noncontributory - diabetes Smoking Status: Former smoker Review of Systems General: Reports: Fever, Malaise. Denies: Chills, Sweats Eyes: Denies: Visual changes - bilaterally, Diplopia ENT: Reports: Bilateral ear pain, Rhinorrhea. Denies: Sore throat Cardiovascular: Denies: Chest pain, Palpitations Respiratory: Reports: Dyspnea, Cough. Denies: Dyspnea on exertion Gastrointestinal: Reports: Diarrhea. Denies: Abdominal pain, Nausea, Vomiting, Melena, Hematochezia Genitourinary: Denies: Dysuria, Hematuria, Frequency Musculoskeletal: Reports: Myalgias. Denies: Back pain, Extremity Pain Skin: Denies: Rash, Wounds Neurological: Denies: Headache, Weakness, Numbness Physical Exam Vital Signs/Narrative: Vital Signs Temp Pulse Resp BP Pulse Ox 09/04/19 11:02 98.0 F 69 17 165/76 H 98 Inital Vital Signs reviewed: Yes General: Well nourished, Well developed, No Acute Distress Head: Normocephalic, Atraumatic Eyes: Perrl, EOMI ENT: No rhinorrhea, Nasal congestion, - - There is some evidence of eustachian tube dysfunction (retracted TM on left) but no significant effusion or erythema.. Negative for: Sinus tenderness Neck: Supple, Nontender Cardiovascular: Regular rate, Regular rhythm, No murmurs Respiratory: No distress, CTA bilaterally, Chest nontender Abdomen: Soft, Nontender, Nondistended, Normal bowel sounds Back: Nontender, Normal Inspection Extremities: Nontender, No edema Skin: Normal color, No rash Neurological: Alert, Oriented x3, Cranial nerves II-XII grossly intact, Normal Strength, Normal Sensation Psychological: Normal affect, Normal Mood Diagnostic/Tx/Re-eval - EKG Initial EKG Interpretation: Sinus Rhythm - EKG shows a normal sinus rhythm at a rate of 62. There are no concerning features of ACS. - Medical Decision Making EKG is normal. Chest x-ray is negative. CBC chemistries normal. Troponin negative. I explained to the patient that I cannot offer coronavirus testing at this point. Patient understands this. At this point I do not see strong evidence to admit the patient into the hospital. Be my recommendation that the patient self isolate. He has now had 3 weeks of nasal congestion headache and ear pain. No other family members whom he lives with are ill. Think is very reasonable to treat this as a sinus infection. We will place him on doxycycline. She is comfortable with her plan. ED Disposition - Plan for ED Patient: Disposition: Home or Assisted Living Diagnosis: Sinusitis Instructions: ED Sinusitis Antibiotic Treatment Prescriptions: Doxycycline 100 mg PO BID #20 cap Transmission Status: Pending to [facility]errals[facility] [Primary Care Provider] - As Needed
[2019-09-04 11:27] VITALS: BP 138/68; PULSE 63; PULSE 66; RESP 14; TEMP 36.7; O2SAT 98
--- NOTE | 2019-09-04 11:30 | RAD_ITS ---
STUDY: X-RAY CHEST REASON FOR EXAM: Male, 49 years old. COUGH AND INTERMITTENT SOB X1 WEEK TECHNIQUE: Single AP portable view of the chest. COMPARISON: Comparison is made with prior examination dated July 26, 2019. FINDINGS: EKG electrodes are seen. The lungs are clear and expanded. There is no demonstrated pleural abnormality. There is mild cardiac enlargement. Normal mediastinum and brian. Normal visualized pulmonary arteries. Normal visualized aortic arch and descending thoracic aorta. Normal visualized thoracic spine. Normal visualized ribs, clavicles, and shoulders. There is no demonstrated abnormality of the visualized soft tissue structures of the upper abdomen. RAD/Chest 1 View (Portable) IMPRESSION: Mild cardiomegaly. The lungs are clear. Electronically Signed: Dany Love, at 13:01 EDT , Service support ,
[2019-09-04 11:33] VITALS: O2SAT 98
[2019-09-04 11:35] LABS: Absolute Lymphocyte Count 2.46 X10^3/uL (0.83-4.51); Basophil# 0.03 X10^3/uL; Basophil% 0.4 % (0-1); Eosinophil# 0.24 X10^3/uL; Eosinophils% 3.1 % (0-5); Hematocrit 43.7 % (40-54); Hemoglobin 14.8 g/dL (13.0-16.5); Lymphocyte # 2.46 X10^3/ul (4.0); Lymphocyte % 32.2 % (19-41); Mean Corp Hgb Conc 33.9 g/dL (32-36); Mean Corpuscular Hgb 29.7 pg (27.0-32.0); Mean Corpuscular Volume 87.6 fL (80-94); Mean Platelet Vol. 10.3 fl (6.2-12.0); Monocyte# 0.87 X10^3/uL; Monocyte% 11.4 % (0-10); NRBC Flagged by Analyzer 0 % (0-5); Neutrophil # 4.03 X10^3/uL (2.7-7.7); Neutrophil % 52.8 % (47-70); Platelet Count 226 K/mm3 (150-450); RBC Distribution Width SD 40.8 fl (35.1-43.9); Red Blood Count 4.99 M/mm3 (4.6-6.2); White Blood Count 7.6 K/mm3 (4.4-11.0)
[2019-09-04 11:53] LABS: Anion Gap 5 (5-15); BUN 13 mg/dL (7-18); BUN/Creat Ratio 14.3 RATIO (10-20); Calcium,Total 9.2 mg/dL (8.5-10.1); Chloride 106 mmol/L (98-107); Creatinine, Serum 0.91 mg/dL (0.70-1.30); EST Glomerular Filtration Rate 94 mL/min (>60); Est Glom Filt Rate - Afr Amer 114 mL/min (>60); Estimated Creatinine Clearance 106.59 ml/min; Glucose 213 mg/dL (74-106); Potassium 3.8 mmol/L (3.5-5.1); Sodium Level 139 mmol/L (136-145)
[2019-09-04 12:17] VITALS: BP 118/73; PULSE 60; PULSE 61; RESP 17; TEMP 37.2; O2SAT 96; O2SAT 98
== END 2019-09-04 12:31 | disposition home or self-care (01) ==
PROVIDERS: Emergency Provider Emergency Medicine
DX: J32.9 Chronic sinusitis, unspecified (principal); H69.82 Other specified disorders of Eustachian tube, left ear; E11.9 Type 2 diabetes mellitus without complications; Z79.84 Long term (current) use of oral hypoglycemic drugs; Z79.02 Long term (current) use of antithrombotics/antiplatelets; Z79.82 Long term (current) use of aspirin; Z79.899 Other long term (current) drug therapy; I25.2 Old myocardial infarction; Z87.891 Personal history of nicotine dependence; Z95.5 Presence of coronary angioplasty implant and graft
CPT/HCPCS: 71045; 80048; 84484; 85025; 93005; 99284

== ENCOUNTER 2019-10-07 08:37 | Emergency (ER) | payer OTHER, SELFPAY ==
[2019-10-06 13:21] VITALS: BMI 35.2
[2019-10-07] VITALS (7 sets, daily range): BP systolic 121–158; BP diastolic 70–83; PULSE 65–84; RESP 12–18; TEMP 36.7; O2SAT 94–99; BMI 36.6
--- NOTE | 2019-10-07 08:46 | RAD_ITS ---
STUDY: X-RAY CHEST REASON FOR EXAM: Male, 49 years old. HX HEART ATTACK 5 MONTHS AGO, NOW PRESENTS WITH CHEST PAIN TECHNIQUE: Single AP portable view of the chest. COMPARISON: September 04, 2019 chest x-ray FINDINGS: The lungs are clear and expanded. There is no demonstrated pleural abnormality. There is mild cardiac enlargement. Normal mediastinum and brian. Normal visualized pulmonary arteries. Normal visualized aortic arch and descending thoracic aorta. There are diffuse degenerative changes of the visualized thoracic spine. Normal visualized ribs, clavicles, and shoulders. There is no demonstrated abnormality of the visualized soft tissue structures of the upper abdomen. RAD/Chest 1 View (Portable) IMPRESSION: Mild Cardiac enlargement. Stable lung markings no evidence of acute focal infiltrate. Electronically Signed: Rebecca Washburn MD at 9:37 EDT Tel , Service support ,
--- NOTE | 2019-10-07 08:46 | EKG12_ITS ---
Test Reason : CP Blood Pressure : / mmHG Vent. Rate : 078 BPM Atrial Rate : 078 BPM P-R Int : 172 ms QRS Dur : 092 ms QT Int : 370 ms P-R-T Axes : 070 -25 024 degrees QTc Int : 421 ms Normal sinus rhythm with sinus arrhythmia Normal ECG Confirmed by JOSE EDUARDO GOVEA, COCO ([id number]), technical editor CLAUDIA PABLO ([id number]) on 10/10/2019 10:51:44 AM Referred By: BOAZ Confirmed By:COCO WHITT MD
--- NOTE | 2019-10-07 08:47 | ED.DCSUM_ITS ---
History of Present Illness Chief Complaint: Chest Pain Informant: Patient, EMS Onset: Today Quality: Pressure Location: - - Upper sternal region Current Severity: 3/10 Maximum Severity: 5/10 Worsened By: Nothing Relieved By: Nothing Associated Symptoms: Nausea, Diaphoresis Narrative: Patient presents secondary to chest pressure. He states he woke around 430 this morning. He had half a cup of coffee and breakfast as usual. Following this he began to feel nauseated and had some slight pressure in the upper portion of his chest. States he was not quite able to get a deep breath. Patient did have a STEMI in May 2019. Patient states the pain was nowhere as intense as his previous [place]. Patient was undergoing his cardiac rehab when things were put on hold secondary to the Covid pandemic. He is scheduled to restart cardiac rehab on Wednesday. Patient states his pain is a 5 out of 10 at worst, currently 3 out of 10. He did take aspirin. CVD Risk Factors: Hypertension, Diabetes, Hypercholesterolemia - Past Medical History (1) Hypertension Status: Chronic (2) High cholesterol Status: Chronic (3) Myocardial infarction Status: Chronic (4) Diabetes Status: Chronic (5) H/O heart artery stent Status: Chronic Past Medical History - Allergies and Home Meds Allergies/Adverse Reactions: Allergies No Known Allergies Allergy (Verified 09/04/19 11:01) Primary Care Physician: [facility] [Primary Care Provider] - Prior records reviewed: Yes Surgical History: noncontributory - diabetes Lives: Spouse/ Significant Other Smoking Status: Never smoker Review of Systems General: Denies: Chills, Fever Eyes: Denies: Visual changes - bilaterally ENT: Denies: Bilateral ear pain Cardiovascular: Reports: Chest pain. Denies: Palpitations, Heart racing Respiratory: Reports: Dyspnea Gastrointestinal: Reports: Nausea. Denies: Abdominal pain, Vomiting Genitourinary: Denies: Dysuria Musculoskeletal: Denies: Swelling, Extremity Pain Skin: Denies: Rash Neurological: Denies: Headache Hematologic: Denies: Easy bruising, Easy bleeding Allergy: Denies: Uticaria Physical Exam Vital Signs/Narrative: Vital Signs Temp Pulse Resp BP Pulse Ox 10/07/19 08:39 98.1 F 84 15 158/83 H 99 Inital Vital Signs reviewed: Yes General: Well nourished, Well developed Head: Normocephalic ENT: Moist mucous membranes Neck: Supple Cardiovascular: Regular rate, Regular rhythm Respiratory: No distress, CTA bilaterally Abdomen: Soft, Nontender Skin: Normal color Neurological: Alert, Oriented x3 Psychological: Normal affect Diagnostic/Tx/Re-eval Impressions Chest X-Ray 10/07/19 08:46 IMPRESSION: Mild Cardiac enlargement. Stable lung markings no evidence of acute focal infiltrate. Electronically Signed: Rebecca Washburn MD at 9:37 EDT Tel , Service support , 10/07/19 08:46 Chest 1 View (Portable) [RAD] Stat Laboratory Results 10/07/19 10/07/19 10/07/19 08:48 08:48 11:55 WBC 7.2 RBC 5.02 Hgb 14.7 Hct 44.6 MCV 88.8 MCH 29.3 MCHC 33.0 RDW Std Deviation 41.3 RDW Coeff of Graham 12.8 Plt Count 209 MPV 10.4 Immature Gran % (Auto) 0.400 Neut % (Auto) 64.1 Lymph % (Auto) 23.2 Fisher % (Auto) 8.3 Eos % (Auto) 3.6 Baso % (Auto) 0.4 Absolute Neuts (auto) 4.6 Absolute Lymphs (auto) 1.67 Nucleated RBC % 0 Sodium 139 Potassium 4.2 Chloride 109 H Carbon Dioxide 24.0 Anion Gap 6 BUN 15 Creatinine 0.88 Estim Creat Clear Calc 110.23 Est GFR (MDRD) Af Amer 117 Est GFR (MDRD) Non-Af 97 BUN/Creatinine Ratio 17.0 Glucose 265 H Calcium 8.9 Troponin I < 0.015 < 0.015 - EKG Initial EKG Interpretation: Sinus Rhythm - Sinus at 78 with no acute ischemia. Follow-up EKG Interpretation: Sinus Rhythm - Sinus at 69 with no acute ischemia. Treatment: Aspirin Repeat Eval: Pain Free BLADE Risk: >/= 3RF, H/O CAD, ASA within 7 days Score: 3 - Medical Decision Making Patient had taken 1 baby aspirin this morning. He was given 3 additional baby aspirin with EMS. I initially ordered morphine for the patient, however before it could be given to to him he states his pain was completely resolved. He has remained pain-free throughout his ED stay. I did speak with Dr. Bearden as the patient is only 4 months status post cardiac stent. We agreed to 3-hour repeat troponin and EKG. Patient has remained pain-free throughout his stay and repeat blood work and EKG are normal. Patient is to return if any further symptoms develop this weekend. He is okay to resume cardiac rehab on Wednesday as scheduled. ED Disposition - Plan for ED Patient: Disposition: Home or Assisted Living Diagnosis: Chest pain Instructions: ED Chest Pain NonCardiac [facility] [[facility]] -
[2019-10-07] MEDS: Ondansetron 4 MG/2 ML Vial IV (08:55)
[2019-10-07 09:00] LABS: Absolute Lymphocyte Count 1.67 X10^3/uL (0.83-4.51); Absolute Neutrophil Count 4.6 X10^3/uL (2.0-7.7); Basophil# 0.03 X10^3/uL; Basophil% 0.4 % (0-1); Eosinophil# 0.26 X10^3/uL; Eosinophils% 3.6 % (0-5); Hematocrit 44.6 % (40-54); Hemoglobin 14.7 g/dL (13.0-16.5); Lymphocyte # 1.67 X10^3/ul (4.0); Lymphocyte % 23.2 % (19-41); Mean Corpuscular Hgb 29.3 pg (27.0-32.0); Mean Corpuscular Volume 88.8 fL (80-94); Mean Platelet Vol. 10.4 fl (6.2-12.0); Monocyte% 8.3 % (0-10); NRBC Flagged by Analyzer 0 % (0-5); Neutrophil # 4.62 X10^3/uL (2.7-7.7); Neutrophil % 64.1 % (47-70); Platelet Count 209 K/mm3 (150-450); RBC Distribution Width CV 12.8 % (11.6-14.6); RBC Distribution Width SD 41.3 fl (35.1-43.9); Red Blood Count 5.02 M/mm3 (4.6-6.2); White Blood Count 7.2 K/mm3 (4.4-11.0)
[2019-10-07 09:19] LABS: Anion Gap 6 (5-15); BUN 15 mg/dL (7-18); Calcium,Total 8.9 mg/dL (8.5-10.1); Chloride 109 mmol/L (98-107); Creatinine, Serum 0.88 mg/dL (0.70-1.30); EST Glomerular Filtration Rate 97 mL/min (>60); Est Glom Filt Rate - Afr Amer 117 mL/min (>60); Estimated Creatinine Clearance 110.23 ml/min; Glucose 265 mg/dL (74-106); Potassium 4.2 mmol/L (3.5-5.1); Sodium Level 139 mmol/L (136-145)
[2019-10-07] MEDS: 0.9% Normal Saline 1,000 ML 150 ML IV (09:29)
--- NOTE | 2019-10-07 10:02 | EKG12_ITS ---
Test Reason : REPEAT Blood Pressure : / mmHG Vent. Rate : 069 BPM Atrial Rate : 069 BPM P-R Int : 174 ms QRS Dur : 088 ms QT Int : 396 ms P-R-T Axes : 059 -25 016 degrees QTc Int : 424 ms Normal sinus rhythm Normal ECG Confirmed by COCO WHITT MD ([id number]), editor trade journal CLAUDIA PABLO ([id number]) on 10/10/2019 10:51:30 AM Referred By: BOAZ Confirmed By:COCO WHITT MD
== END 2019-10-07 12:32 | disposition home or self-care (01) ==
PROVIDERS: Emergency Provider Emergency Medicine
DX: R07.9 Chest pain, unspecified (principal); E11.9 Type 2 diabetes mellitus without complications; I10 Essential (primary) hypertension; E78.00 Pure hypercholesterolemia, unspecified; Z79.84 Long term (current) use of oral hypoglycemic drugs; Z79.02 Long term (current) use of antithrombotics/antiplatelets; Z79.82 Long term (current) use of aspirin; Z79.899 Other long term (current) drug therapy; I25.2 Old myocardial infarction; Z95.5 Presence of coronary angioplasty implant and graft
CPT/HCPCS: 36415; 71045; 80048; 84484; 85025; 93005; 96361; 96374; 99285; J7030; A4216; J2405

== ENCOUNTER 2019-11-03 15:15 | Outpatient (RCR) | payer OTHER, SELFPAY ==
[2019-09-06 00:51] VITALS: BP 100/54; BP 144/80
--- NOTE | 2019-10-06 13:12 | PCM.CR.ITP ---
Diagnosis - General Information Admitting Diagnosis: PCI with stent Personal Learning Style:: Audio/Visual, Written Stage of change r/t lifestyle modifications:: Action Gave educational material for:: Treating Heart Disease, Emotions & Heart Disease, Stress Management & Relaxation, Sleep Disorders & Heart Disease, How The Heart Works, What it means to have Heart Disease, How Coronary Artery Disease is Diagnosed, Heart Procedures, What Heart Medications Do, Risk Factors & Modifications, Living an Active Life, Nutrition - Education/Goals Cardiac Rehabilitation Goals: 1. Maintain the individual as the primary focus of care. 2. To improve the patient's quality of life. 3. Identification of cardiac risk factors and provide cardiac risk factor management. 4. Enhance the psychosocial status of the patient. 5. Reconditioning enough to allow the patient to resume customary activities. 6. Control symptoms of cardiac disease Scale for measuring improvement of personal goals: Enter appropriate number in Comments. 2 = Unchanged. 3 = Slightly Better. 4 = Moderate Improvement. 5 = Met my Goal - Diagnosis & Disease Process Outcomes/Goals: Pt IDs own risk factors & lifestyle modifications by Session 10, Verbalizes symptoms of angina & response by session 3., Pt independently manages, Other Additional Outcomes/Goals: Plan/Interventions: Assist Pt to ID & engage in lifestyle modification to reduce CVD risk, Instruct on individual risk factors, Review symptoms of angina & emergency actions, Review secondary diagnosis & identify educational needs., Other see comment 30 day Reassessments:: Progressing 30 day Reassessments:: Progressing 30 day Reassessments:: Progressing - Safety Referral to Physical Therapy: No Referral to [facility] Case Management: No Fall Risk Assessed:: Yes Assistive Devices:: None Exercise - 60-day Assessment - Visit Date of Eval: 10/06/19 Session #:: 7 Comments:: Pt was on hold for COVID 19 precaution. Pt is now resuming rehab. - Physician Prescribed Exercise Modalities: Treadmill, Airdyne, NuStep Frequency: 3x/week for 12 weeks [36 sessions] Intensity: 60-80% of age predicted maximum heart rate reserve Current METSs:: 3.9 Target Heart Rate:: 110-144 Current RPE:: 14 Maximum Excercise HR:: 106 Resting Blood Pressure: 100/54 Maximum Exercise Blood Pressure: 144/80 EKG Type: SB - Outcomes & Goals Goals:: Verbalizes understanding of THR, RPE & goal METS by session 6, Documents in home exercise log/reports 30 min aerobic 5 day/wk by DC, Demonstrates accurate pulse taking by DC, Other additional outcome/goals: see below - Intervention & Plan Exercise Program Goals: Instruct on personal THR & RPE, Instruct on MET level & personal MET goal, Show patient to take own pulse /validate performance until accurate, Instruct on home exercise, Other additional plan/int - 30-day Reassessments 30 day Reassessments:: Progressing - Physical Activity Home Exercise Physical Activity - Home Exercise: Safe Exercise, Warm-up, Self-monitoring, Cool-Down, Home Exercise > 30 min Daily, Sitting Time <3 hours/daily - Outcomes & Goals Outcomes/Goals: Demonstrates correct Warm-up/exercise Cool-Down (S3) if = 2.5 METs, Verbalizes symptoms of exercise intolerance by Session 3 (S3), Demonstrate safe equipment use (S3) & follows exercise prescrition (6), Other: See below - Intervention & Plan Plan/Intervention: Instruct warm-up & cool-down if exercising at > 2 METs, Instruct on symptoms of exercise intolerance & actions to take, Instruct & monitor on saf, Assess intial functional capacity & safety risk, Other See below - 30-day Reassessments 30 day Reassessments:: Progressing Nutrition - 60-Day Assessment - Program Goals Nutrition Program Goals: LDL <100 optimal. 100 - 129 Near optimal. 130 - 159 Borderline High. 160 - 189 High. Total Cholesterol <200 desirable. 200 - 239 Borderline High. >/= 240 High. HDL < 40 Low >/=60 High. Triglycerides <150 desirable. <199 optimal. VlDL 5 - 40. HgbA1C <7%. BMI <25 Patient has diagnosis of Hyperlipidemia (ICD E78)?: Yes - Visit Date of Assessment:: 10/06/19 Session #:: 7 - Cholesterol/Lipids Determine presence & major risk factors that modify LDL goal: Hypertension or hypertensive medication, Low HDL cholesterol <40 mg/dL*, Family history of premature CHD in Male < 55 years: female <65 yearsFa, Age men > 45 years; women >/= 55 years Outcomes/Goals: Pt IDs own risk factors & lifestyle modifications by Session 10, Verbalizes symptoms of angina & response by session 3., Pt independently manages, Other Additional Outcomes/Goals: Intervention/Plan: Advocate for lipid panel cholesterol medication if applicable, Instruct on personal lipid levels & lipid goals/NCEP guidelines, Instruct on cholesterol, Other additional plan/int Referral to dietitian:: No 30-day Reassessments:: Progressing - Weight Mgt (Other Care) Height: 6 ft Weight:: 117.707 kg BMI: 35.2 Outcomes/Goals: Pt sets, maintains & shows weight loss goal & trend during rehab, Other additional outcomes/goals Intervention/Plan: Instruct on ideal BMI & set weight loss goal w/patient, Assist pt to ID & incorporate diet changes for weight loss by S9, Refer to Structured Weight Loss program as appropriate, Encourage goal of using 250-300dcal per session for weight loss, Other additional plan/interventions 30 day Reassessments:: Progressing - Healthy Eating Habits Will attend diet classes:: No Outcomes/Goals:: Consume diet rich in vegs,fruits,whole grain/high fiber,fish,lean meat, Limit sat/trans fats,cholesterol & added salts & sugars, Other additional outcome/goals: 30-day Reassessments:: Progressing - Education Gave educational materials for:: Signs & symptoms of hypoglycemia, Signs & symptoms of hyperglycemia, Relate diabetes to coronary artery disease, Healthy eating Medical- 60-Day Assessment - Visit Date of Eval: 10/06/19 Session #:: 7 - Medication Compliance Preventative Medication(s):: Aspirin, Clopidogrel/P2Y12 inhibit, Beta sera Doesn?t believe in the benefits of treatment?: No Believes medications are unnecessary or harmful?: No Has a concern about medication side effects?: No Expresses concern over the cost of medications?: No Outcomes/Goals: Verbalizes medications,desired effect & common side effects @ DC, Pt self-reports following medication regimen, Keeps card in wallet w/medications listed by DC, Other additional outcome/goals: Interventions/plans: Instruct on medication effects & side effects, Review medication list w/patient every two weeks, Instruct importance of taking meds as ordered & assist problem solving, Other additional 30-day Reassessments:: Progressing - Tobacco Use Tobacco Use: Non-smoker - Hypertension Hypertension Diagnosis:: Hypertension ICD-10 I10 Resting Blood Pressure:: 100/54 [place] [employer] Hypertension Guidelines: [place] [employer] Hypertension Guidelines. Normal BP Less than 120/80. Elevated BP 120/80. Hypertension Stage 1: BP 130-139/80-89. Hypertesnion Stage 2: BP 140 or higher/90 or higher. Hypertension Crisis: BP higher than 180/120 Peak Exercise Blood Pressure:: 144/80 Outcomes/Goals: Able to verbalize/achieve optimal blood pressure <130/80, Incorporates diet changes & exercise for blood pressure control by DC, Other additional outcomes/goals Interventions/plan: Instruct on optimal blood pressure, hypertension & medications, Instruct on effects of sodium, alcohol, stress, exercise &hypertension, Other additional plan/interventions 30 day Reassessments:: Progressing - Tobacco Cessation Referral Smoking Cessation Referral:: No Individual Education/Counseling:: No Education Schedule Given:: Yes Psychosocial - 60-Day Assess - VIsit Date of Eval: 10/06/19 Session #:: 7 History of previous Mental disease:: Yes History of Emotional Disorders: Anxious, Depression - Target Goals Target Goals: Assess presence or absence of depression. Using a valid screening tool, maximizes coping skills. Positive support system - Psychosocial Test Tool Used:: [employer] QOL Cardiac, PHQ-9 Questionnaire phq-9 Severity: Severity. 1-4 Minimal Depression. 5-9 Mild Depression. 10-14 Moderate Depression. 15-19 Moderately Sever Depression. 20-27 Severe Depression. Rule: - Referral to Behavioral Health PS - Interventions: Yes Attend Stress Management Classes, No Referral to Behavioral Health if PHQ-9 score >9:, No Referral to [facility], No Referral to Physician if PHQ-9 if score is 5-9: - Outcomes/Goals: See list Psychosocial Outcomes/Goals:: ID's personal stressors & 2 strategies to manage stress by discharge, Other Additional outcome/goals: - Intervention/Plan: See List Interventions/Plan:: Assess stressors,coping strategies & signs of derpression on admission, Instruct/assist pt to develop coping & personal stress Mgt strategies, Refer to Behavioral Health if appropriate, Refer to Physician if appropriate, Instruct patient to recognize signs & symptoms of depression, Instruct patient to recog, Other additional plan/intervention - 30-day Reassessments: 30 day Reassessments:: Progressing Patient Health Questionnaire 60-Day Re-eval Assessment 1. Little interest or pleasure in doing things: Nearly every day 2. Feeling down, depressed, or hopeless: More than half the days 3. Trouble falling or staying asleep, or sleeping too much: Nearly every day 4. Feeling tired or having little energy: Nearly every day 5. Poor appetite or overeating: Not at all 6. Feeling bad about yourself -- or that you are a failure or have let yourself or your family down: Several days 7. Trouble concentrating on things, such as reading the newspaper or watching television: Several days 8. Moving or speaking so slowly that other people could have noticed. Or the opposite - being so fidgety or restless that you have been moving around a lot more than usual: Nearly every day 9. Thoughts that you would be better off , or of hurting yourself in some way: Not at all How difficult have these problems made it for you to do your work, take care of things at home, or get along with other people?: Somewhat difficult Total Score: 16 Self-Efficacy 60-Day Re-eval Assessment We would like to know how confident you are in doing certain activities. Please select your confidence level for:: Select your confidence level for the following using the scale 1-10 where 1 is not at all confident and 10 is totally confident. Your score is the average of all 6 responses. Fatigue: How confident are you that you can keep the fatigue caused by your disease from interfering with the things you want to do? Select Number: 4 Physical Discomfort or Pain: How confident are you that you can keep the physical discomfort or pain of your disease from interfering with the things you want to do? Select Number: 7 Emotional Distress: How confident are you that you can keep the emotional distress caused by your disease from interfering with the things you want to do? Select Number: 5 Other Symptoms or Health Problems: How confident are you that you can keep other symptoms or health problems from interfering with the things you want to do? Select Number: 6 Different Tasks and Activities: How confident are you that you can do the different tasks and activities needed to manage your health condition so as to reduce your need to see a doctor? Select Number: 6 Medication: How confident are you that you can do things other than just taking medication to reduce how much your illness affects your everyday life? Select Number: 8 Total Score:: 6
[2019-10-06 13:21] VITALS: BP 100/54; BP 144/80; BMI 35.2
[2019-10-07 08:39] VITALS: BMI 36.6
--- NOTE | 2019-10-25 13:21 | PCM.CR.ITP ---
Exercise - 30-day Assessment - Visit Date of Eval: 10/25/19 Session #:: 13 Comments:: Suspension of Cardiac Rehab services resulted from 09/07/2019 through 10/09/2019 as a result of Covid-19. Closure of the program was under the [place] [facility] and [place] Gov. [place]'s Orders. If the cardiac rehab program exceeds the 36-week window (this should be rare) allowed for completion of the maximum 36-sessions, a modifier KX will be necessary to indicae continued medical necessity in our estimation. - Physician Prescribed Exercise Modalities: Treadmill, Rower, Airdyne, NuStep Frequency: 3x/week for 12 weeks [36 sessions] Intensity: 60-80% of age predicted maximum heart rate reserve Current METSs:: 4 Target Heart Rate:: 110-144 Current RPE:: 12 Maximum Excercise HR:: 109 Resting Blood Pressure: 120/60 - shortness of breath w/exercise Maximum Exercise Blood Pressure: 132/74 EKG Type: NSR to sinus tachycardia with rare PVCs and PACs. - Outcomes & Goals Goals:: Verbalizes understanding of THR, RPE & goal METS by session 6, Documents in home exercise log/reports 30 min aerobic 5 day/wk by DC, Demonstrates accurate pulse taking by DC - Intervention & Plan Exercise Program Goals: Instruct on personal THR & RPE, Instruct on MET level & personal MET goal, Show patient to take own pulse /validate performance until accurate, Instruct on home exercise - 30-day Reassessments 30 day Reassessments:: Progressing - Physical Activity Home Exercise Physical Activity - Home Exercise: Safe Exercise, Warm-up, Self-monitoring, Cool-Down, Home Exercise > 30 min Daily, Sitting Time <3 hours/daily - Outcomes & Goals Outcomes/Goals: Demonstrates correct Warm-up/exercise Cool-Down (S3) if = 2.5 METs, Verbalizes symptoms of exercise intolerance by Session 3 (S3), Demonstrate safe equipment use (S3) & follows exercise prescrition (6) - Intervention & Plan Plan/Intervention: Instruct warm-up & cool-down if exercising at > 2 METs, Instruct on symptoms of exercise intolerance & actions to take, Instruct & monitor on saf, Assess intial functional capacity & safety risk - 30-day Reassessments 30 day Reassessments:: Progressing Nutrition - 30-Day Assessment - Program Goals Nutrition Program Goals: LDL <100 optimal. 100 - 129 Near optimal. 130 - 159 Borderline High. 160 - 189 High. Total Cholesterol <200 desirable. 200 - 239 Borderline High. >/= 240 High. HDL < 40 Low >/=60 High. Triglycerides <150 desirable. <199 optimal. VlDL 5 - 40. HgbA1C <7%. BMI <25 Patient has diagnosis of Hyperlipidemia (ICD E78)?: Yes - Visit Date of Assessment:: 10/25/19 Session #:: 13 - Cholesterol/Lipids Determine presence & major risk factors that modify LDL goal: Hypertension or hypertensive medication, Family history of premature CHD in Male < 55 years: female <65 yearsFa, Age men > 45 years; women >/= 55 years Outcomes/Goals: Pt IDs own risk factors & lifestyle modifications by Session 10, Verbalizes symptoms of angina & response by session 3., Pt independently manages Intervention/Plan: Instruct on personal lipid levels & lipid goals/NCEP guidelines, Instruct on cholesterol Referral to dietitian:: No 30-day Reassessments:: Progressing - Diabetes (Other Core Measures) Diabetes Type: Not Applicable - Weight Mgt (Other Care) Not Applicable: No Weight:: 267 lb BMI (Report if calculated above): 35.1 Diagnosis Overweight/Obesity BMI> 30% ICD-10 E66: Yes Diagnosis High BMI/Morbid Obesity BMI> 35% ICD-10 Z68: Yes Outcomes/Goals: Pt sets, maintains & shows weight loss goal & trend during rehab Intervention/Plan: Instruct on ideal BMI & set weight loss goal w/patient, Assist pt to ID & incorporate diet changes for weight loss by S9, Encourage goal of using 250-300dcal per session for weight loss 30 day Reassessments:: Progressing - Healthy Eating Habits Will attend diet classes:: Yes Outcomes/Goals:: Consume diet rich in vegs,fruits,whole grain/high fiber,fish,lean meat, Limit sat/trans fats,cholesterol & added salts & sugars Intervention/Plan:: Assess current eating habits 30-day Reassessments:: Progressing - Education Gave educational materials for:: Healthy eating Medical- 30-Day Assessment - Visit Date of Eval: 10/25/19 Session #:: 13 - Medication Compliance Preventative Medication(s):: Aspirin, Clopidogrel/P2Y12 inhibit, Statin/lipid, Beta sera H/O mental health issues: depression, anxiety, or addiction?: Yes Doesn?t believe in the benefits of treatment?: No Believes medications are unnecessary or harmful?: No Has a concern about medication side effects?: No Expresses concern over the cost of medications?: No Outcomes/Goals: Verbalizes medications,desired effect & common side effects @ DC, Pt self-reports following medication regimen, Keeps card in wallet w/medications listed by DC Interventions/plans: Instruct on medication effects & side effects, Review medication list w/patient every two weeks, Instruct importance of taking meds as ordered & assist problem solving 30-day Reassessments:: Progressing - Tobacco Use Tobacco Use: Non-smoker How long ago did you quit using tobacco products?: Less than 6 months ago Do you use smokeless tobacco?: No Outcomes/Goals: Smoking cessation achieved or maintained by discharge, Identify aids/strategies for achieving smoking cessation by session 6 Interventions/plan: Instruct on effects of smoking & provide smoking cessation resource, Assist pt to set quit date & provide encouragement, Assist pt to develop strategies to achieve/maintain quit date, Assist pt w/nicotine replacement & medication for cessation success 30-day Reassessments:: Progressing - Hypertension Hypertension Diagnosis:: Hypertension ICD-10 I10 Resting Blood Pressure:: 120/60 [place] [employer] Hypertension Guidelines: [place] [employer] Hypertension Guidelines. Normal BP Less than 120/80. Elevated BP 120/80. Hypertension Stage 1: BP 130-139/80-89. Hypertesnion Stage 2: BP 140 or higher/90 or higher. Hypertension Crisis: BP higher than 180/120 Peak Exercise Blood Pressure:: 132/74 Outcomes/Goals: Able to verbalize/achieve optimal blood pressure <130/80, Incorporates diet changes & exercise for blood pressure control by DC Interventions/plan: Instruct on optimal blood pressure, hypertension & medications, Instruct on effects of sodium, alcohol, stress, exercise &hypertension 30 day Reassessments:: Progressing - Tobacco Cessation Referral Smoking Cessation Referral:: Yes Individual Education/Counseling:: No Education Schedule Given:: Yes Psychosocial - 30-Day Assess - VIsit Date of Eval: 10/25/19 Session #:: 13 History of previous Mental disease:: Yes History of Emotional Disorders: Anxious, Depression - Target Goals Target Goals: Assess presence or absence of depression. Using a valid screening tool, maximizes coping skills. Positive support system - Psychosocial Test Tool Used:: Ferrans Abilio QOL Cardiac, PHQ-9 Questionnaire phq-9 Severity: Severity. 1-4 Minimal Depression. 5-9 Mild Depression. 10-14 Moderate Depression. 15-19 Moderately Sever Depression. 20-27 Severe Depression. Rule: - Referral to Behavioral Health PS - Interventions: Yes Attend Stress Management Classes, No Referral to Behavioral Health if PHQ-9 score >9:, No Referral to [facility], No Referral to Physician if PHQ-9 if score is 5-9: - [facility] by [facility] - Outcomes/Goals: See list Psychosocial Outcomes/Goals:: ID's personal stressors & 2 strategies to manage stress by discharge - Intervention/Plan: See List Interventions/Plan:: Assess stressors,coping strategies & signs of derpression on admission, Instruct/assist pt to develop coping & personal stress Mgt strategies, Instruct patient to recognize signs & symptoms of depression, Instruct patient to recog - 30-day Reassessments: 30 day Reassessments:: Progressing Patient Health Questionnaire 30-Day Re-eval Assessment 1. Little interest or pleasure in doing things: More than half the days 2. Feeling down, depressed, or hopeless: Several days 3. Trouble falling or staying asleep, or sleeping too much: More than half the days 4. Feeling tired or having little energy: More than half the days 5. Poor appetite or overeating: Not at all 6. Feeling bad about yourself -- or that you are a failure or have let yourself or your family down: Not at all 7. Trouble concentrating on things, such as reading the newspaper or watching television: Not at all 8. Moving or speaking so slowly that other people could have noticed. Or the opposite - being so fidgety or restless that you have been moving around a lot more than usual: More than half the days 9. Thoughts that you would be better off , or of hurting yourself in some way: Not at all How difficult have these problems made it for you to do your work, take care of things at home, or get along with other people?: Somewhat difficult Total Score: 9 Self-Efficacy 30-Day Re-eval Assessment We would like to know how confident you are in doing certain activities. Please select your confidence level for:: Select your confidence level for the following using the scale 1-10 where 1 is not at all confident and 10 is totally confident. Your score is the average of all 6 responses. Fatigue: How confident are you that you can keep the fatigue caused by your disease from interfering with the things you want to do? Select Number: 5 Physical Discomfort or Pain: How confident are you that you can keep the physical discomfort or pain of your disease from interfering with the things you want to do? Select Number: 8 Emotional Distress: How confident are you that you can keep the emotional distress caused by your disease from interfering with the things you want to do? Select Number: 6 Other Symptoms or Health Problems: How confident are you that you can keep other symptoms or health problems from interfering with the things you want to do? Select Number: 7 Different Tasks and Activities: How confident are you that you can do the different tasks and activities needed to manage your health condition so as to reduce your need to see a doctor? Select Number: 7 Medication: How confident are you that you can do things other than just taking medication to reduce how much your illness affects your everyday life? Select Number: 9 Total Score:: 7
[2019-10-25 13:29] VITALS: BP 120/60; BP 132/74; BMI 35.1
== END 2019-11-05 23:59 ==
LOC: CR 15:15
DX: I25.10 Atherosclerotic heart disease of native coronary artery without angina pectoris (principal); Z95.5 Presence of coronary angioplasty implant and graft; I10 Essential (primary) hypertension; E78.5 Hyperlipidemia, unspecified; E11.9 Type 2 diabetes mellitus without complications; E66.9 Obesity, unspecified; Z87.891 Personal history of nicotine dependence
CPT/HCPCS: 93798

== ENCOUNTER 2019-11-20 15:15 | Outpatient (RCR) | payer OTHER, SELFPAY ==
[2019-10-06 13:21] VITALS: BMI 35.2
[2019-10-07 08:39] VITALS: BMI 36.6
[2019-11-06 00:16] VITALS: BP 120/60; BP 132/74
--- NOTE | 2019-11-23 06:57 | CR.ITP_ITS ---
Exercise - 90-day Assessment - Visit Date of Dana: 11/23/19 Session #:: 20 Comments:: PATIENT CONTINUES TO COMPLAIN OF SHORTNESS OF BREATH. HE DID HAVE TWO (2) EMERGENCY ROOM VISITS RELATED TO THE DYSPNEA CONCERNED IT WAS HEART RELATED. HE FINALLY WAS ABLE TO CONTACT HIS PHYSICIAN AT THE [facility] AND WAS STARTED ON AN ALBUTEROL HFA INHALER WITH NO RELIEF. PATIENT REPORTS TAKING 2-PUFFS TWO TO THREE TIMES DAILY WITH NO BENEFIT. PATIENT IS SCHEDULED TO HAVE A PULMONARY FUNCTION TEST THROUGH THE [facility]. - Physician Prescribed Exercise Modalities: Treadmill, Airdyne, NuStep Frequency: 3x/week for 12 weeks [36 sessions] Intensity: 60-80% of age predicted maximum heart rate reserve Current METSs:: 5.0 Target Heart Rate:: 110-144 Current RPE:: 14-15 Maximum Excercise HR:: 123 Resting Blood Pressure: 108/60 Maximum Exercise Blood Pressure: 148/84 EKG Type: NSR to sinus tachycardia with rare PACs and PVCs. Current Physical Activity or Exercising minutes: WORKING FULL-TIME - Outcomes & Goals Goals:: Verbalizes understanding of THR, RPE & goal METS by session 6, Documents in home exercise log/reports 30 min aerobic 5 day/wk by DC, Demonstrates accurate pulse taking by DC - Intervention & Plan Exercise Program Goals: Instruct on personal THR & RPE, Instruct on MET level & personal MET goal, Show patient to take own pulse /validate performance until accurate, Instruct on home exercise - 30-day Reassessments 30 day Reassessments:: Met - Physical Activity Home Exercise Physical Activity - Home Exercise: Safe Exercise, Warm-up, Self-monitoring, Cool-Down, Home Exercise > 30 min Daily, Sitting Time <3 hours/daily - Outcomes & Goals Outcomes/Goals: Demonstrates correct Warm-up/exercise Cool-Down (S3) if = 2.5 METs, Verbalizes symptoms of exercise intolerance by Session 3 (S3), Demonstrate safe equipment use (S3) & follows exercise prescrition (6) - Intervention & Plan Plan/Intervention: Instruct warm-up & cool-down if exercising at > 2 METs, Instruct on symptoms of exercise intolerance & actions to take, Instruct & monitor on saf, Assess intial functional capacity & safety risk - 30-day Reassessments 30 day Reassessments:: Met Nutrition - 90-Day Assessment - Program Goals Nutrition Program Goals: LDL <100 optimal. 100 - 129 Near optimal. 130 - 159 Borderline High. 160 - 189 High. Total Cholesterol <200 desirable. 200 - 239 Borderline High. >/= 240 High. HDL < 40 Low >/=60 High. Triglycerides <150 desirable. <199 optimal. VlDL 5 - 40. HgbA1C <7%. BMI <25 Patient has diagnosis of Hyperlipidemia (ICD E78)?: Yes - Visit Date of Assessment:: 11/23/19 Session #:: 20 - Cholesterol/Lipids Determine presence & major risk factors that modify LDL goal: Hypertension or hypertensive medication, Family history of premature CHD in Male < 55 years: female <65 yearsFa, Age men > 45 years; women >/= 55 years Outcomes/Goals: Pt IDs own risk factors & lifestyle modifications by Session 10, Verbalizes symptoms of angina & response by session 3., Pt independently manages Intervention/Plan: Instruct on personal lipid levels & lipid goals/NCEP guidelines, Instruct on cholesterol 30-day Reassessments:: Progressing - Diabetes (Other Core Measures) Diabetes Type: Not Applicable - Weight Mgt (Other Care) Not Applicable: No Weight:: 269 lb BMI (Report if calculated above): 35.1 - PATIETN DECLINED WHY WEIGHT PROGRAM FOR WEIGHT LOSS. Diagnosis Overweight/Obesity BMI> 30% ICD-10 E66: Yes Diagnosis High BMI/Morbid Obesity BMI> 35% ICD-10 Z68: Yes - Healthy Eating Habits Will attend diet classes:: Yes Outcomes/Goals:: Consume diet rich in vegs,fruits,whole grain/high fiber,fish,lean meat, Limit sat/trans fats,cholesterol & added salts & sugars Intervention/Plan:: Assess current eating habits - Education Gave educational materials for:: Healthy eating Medical- 90-Day Assessment - Visit Date of Eval: 11/23/19 Session #:: 20 - Medication Compliance Preventative Medication(s):: Aspirin, Clopidogrel/P2Y12 inhibit, Statin/lipid, Beta sera H/O mental health issues: depression, anxiety, or addiction?: No Doesn?t believe in the benefits of treatment?: No Believes medications are unnecessary or harmful?: No Has a concern about medication side effects?: No Expresses concern over the cost of medications?: No Outcomes/Goals: Verbalizes medications,desired effect & common side effects @ DC, Pt self-reports following medication regimen, Keeps card in wallet w/medications listed by DC Interventions/plans: Instruct on medication effects & side effects, Review medication list w/patient every two weeks, Instruct importance of taking meds as ordered & assist problem solving 30-day Reassessments:: Progressing - Tobacco Use Tobacco Use: Non-smoker How long ago did you quit using tobacco products?: Greater than or equal to 6 months ago - Hypertension Hypertension Diagnosis:: Hypertension ICD-10 I10 Resting Blood Pressure:: 108/60 [place] [employer] Hypertension Guidelines: [place] [employer] Hypertension Guidelines. Normal BP Less than 120/80. Elevated BP 120/80. Hypertension Stage 1: BP 130-139/80-89. Hypertesnion Stage 2: BP 140 or higher/90 or higher. Hypertension Crisis: BP higher than 180/120 Peak Exercise Blood Pressure:: 148/84 Outcomes/Goals: Able to verbalize/achieve optimal blood pressure <130/80, Incorporates diet changes & exercise for blood pressure control by DC Interventions/plan: Instruct on optimal blood pressure, hypertension & medications, Instruct on effects of sodium, alcohol, stress, exercise &hypertension 30 day Reassessments:: Progressing - Tobacco Cessation Referral Smoking Cessation Referral:: No Individual Education/Counseling:: No Education Schedule Given:: Yes Psychosocial - 90-Day Assess - VIsit Date of Eval: 11/23/19 Session #:: 20 Not Applicable: No History of Emotional Disorders: Depression - Target Goals Target Goals: Assess presence or absence of depression. Using a valid screening tool, maximizes coping skills. Positive support system - Psychosocial Test Tool Used:: Wisam Knox QOL Cardiac, PHQ-9 Questionnaire phq-9 Severity: Severity. 1-4 Minimal Depression. 5-9 Mild Depression. 10-14 Moderate Depression. 15-19 Moderately Sever Depression. 20-27 Severe Depression. Rule: - Referral to Behavioral Health PS - Interventions: Yes Attend Stress Management Classes, No Referral to Behavioral Health if PHQ-9 score >9:, No Referral to [facility], No Referral to Physician if PHQ-9 if score is 5-9: - Outcomes/Goals: See list Psychosocial Outcomes/Goals:: ID's personal stressors & 2 strategies to manage stress by discharge - Intervention/Plan: See List Interventions/Plan:: Assess stressors,coping strategies & signs of derpression on admission, Instruct/assist pt to develop coping & personal stress Mgt strategies, Instruct patient to recognize signs & symptoms of depression, Instruct patient to recog - 30-day Reassessments: 30 day Reassessments:: Progressing Patient Health Questionnaire 90-Day Re-eval Assessment 1. Little interest or pleasure in doing things: More than half the days 2. Feeling down, depressed, or hopeless: Several days 3. Trouble falling or staying asleep, or sleeping too much: More than half the days 4. Feeling tired or having little energy: More than half the days 5. Poor appetite or overeating: Not at all 6. Feeling bad about yourself -- or that you are a failure or have let yourself or your family down: Several days 7. Trouble concentrating on things, such as reading the newspaper or watching television: Not at all 8. Moving or speaking so slowly that other people could have noticed. Or the opposite - being so fidgety or restless that you have been moving around a lot more than usual: More than half the days 9. Thoughts that you would be better off , or of hurting yourself in some way: Not at all How difficult have these problems made it for you to do your work, take care of things at home, or get along with other people?: Somewhat difficult Total Score: 10 Self-Efficacy 90-Day Re-eval Assessment We would like to know how confident you are in doing certain activities. Please select your confidence level for:: Select your confidence level for the following using the scale 1-10 where 1 is not at all confident and 10 is totally confident. Your score is the average of all 6 responses. Fatigue: How confident are you that you can keep the fatigue caused by your disease from interfering with the things you want to do? Select Number: 5 Physical Discomfort or Pain: How confident are you that you can keep the physical discomfort or pain of your disease from interfering with the things you want to do? Select Number: 8 Emotional Distress: How confident are you that you can keep the emotional distress caused by your disease from interfering with the things you want to do? Select Number: 7 Other Symptoms or Health Problems: How confident are you that you can keep other symptoms or health problems from interfering with the things you want to do? Select Number: 8 Different Tasks and Activities: How confident are you that you can do the different tasks and activities needed to manage your health condition so as to reduce your need to see a doctor? Select Number: 8 Medication: How confident are you that you can do things other than just taking medication to reduce how much your illness affects your everyday life? Select Number: 9 Total Score:: 7
[2019-11-23 07:07] VITALS: BP 108/60; BP 148/84; BMI 35.1
[2019-11-28 10:50] VITALS: BMI 35.9
== END 2019-12-05 23:59 ==
LOC: CR 15:15
DX: I25.10 Atherosclerotic heart disease of native coronary artery without angina pectoris (principal); Z95.5 Presence of coronary angioplasty implant and graft
CPT/HCPCS: 93798

== ENCOUNTER 2019-11-28 10:48 | Emergency (ER) | payer OTHER, SELFPAY ==
[2019-10-06 13:21] VITALS: BMI 35.2
[2019-10-07 08:39] VITALS: BMI 36.6
[2019-11-28] VITALS (7 sets, daily range): BP systolic 102–146; BP diastolic 67–91; PULSE 63–82; RESP 15–18; TEMP 36.6; O2SAT 97–100; BMI 35.9
--- NOTE | 2019-11-28 10:57 | EKG12_ITS ---
Test Reason : CP Blood Pressure : / mmHG Vent. Rate : 082 BPM Atrial Rate : 082 BPM P-R Int : 168 ms QRS Dur : 088 ms QT Int : 370 ms P-R-T Axes : 071 -24 031 degrees QTc Int : 432 ms Normal sinus rhythm Normal ECG Confirmed by CAROLYNN FREEMAN ([id number]), scientific publications editor ANA BENAVIDEZ ([id number]) on 12/05/2019 8:14:17 AM Referred By: IVANIA Confirmed By:CAROLYNN FREEMAN
--- NOTE | 2019-11-28 10:59 | ED.VISSUMM ---
- ER Visit Summary Date of Service: 11/28/19 Chief Complaint: Chest pain History of Present Illness: The patient is a 49 M who presents with chest pain that began approximate 1 hour prior to arrival. Patient states his chest pain is different than the pain he had when he had his [place]. Patient describes the pain is dull and pressure. Patient states the pain is over the substernal area. Patient states it is a 4 on a scale of 0-10. Patient states nothing makes it better or worse. Patient admits to some slight diaphoresis where he felt clammy. Patient admits to some mild shortness of breath. Patient states that he felt like his heart was racing when the pain began. Patient denies any nausea or vomiting. Patient denies any fevers or chills. Patient denies any lightheadedness or reflux symptoms. Physical Examination: Vital signs are stable. Patient is afebrile. Patient is in no acute distress. Oral mucosa is pink and moist. Neck is supple. Trachea is midline. There is no JVD noted. Heart was regular rate and rhythm. Lungs are clear and equal bilaterally. Abdomen is soft. Bowel sounds are normal. There is no tenderness. There is no rebound or guarding noted. Skin is warm dry. Cranial nerves II through XII are intact. There are no focal motor or sensory deficits noted. Extremities are intact. There is no calf tenderness or edema. Test Results: EKG showed normal sinus rhythm with a rate of 82. There are no acute ST or T wave changes. Portable chest x-ray was obtained. There is no acute cardiopulmonary process. This was interpreted by the radiologist and myself. CBC and basic metabolic profile were obtained were within normal limits. Initial troponin was normal. Given that his symptoms only began approximately 1 hour prior to arrival, a delta troponin was ordered. This was also normal. Emergency Department Course and Treatment: Patient was given aspirin and sublingual nitroglycerin here. Patient developed a headache after nitroglycerin. Patient was given Tylenol. Patient was feeling better on reevaluation. Patient has a HEART score of 3. Patient was advised that this is low risk for acute cardiac event. Patient was instructed to follow-up with his primary care physician in 5 to 7 days for further evaluation. Patient understood and was agreeable with the plan. All questions were answered. Disposition: Discharge home Impression: Chest pain of uncertain etiology This note was generated with Dragon dictation software. It may contain incorrect words, spelling, and punctuation that were not noted in review of the chart prior to signing ED Disposition - Plan for ED Patient: Disposition: Home or Assisted Living Diagnosis: Chest pain of uncertain etiology Instructions: ED Chest Pain Atypical Unkn Cause [facility] [Primary Care Provider] - 5-7 Days
[2019-11-28 11:08] LABS: Absolute Lymphocyte Count 2.44 X10^3/uL (0.83-4.51); Absolute Neutrophil Count 4.9 X10^3/uL (2.0-7.7); Basophil# 0.05 X10^3/uL; Basophil% 0.6 % (0-1); Eosinophil# 0.24 X10^3/uL; Eosinophils% 2.8 % (0-5); Hematocrit 47.8 % (40-54); Hemoglobin 15.4 g/dL (13.0-16.5); Lymphocyte # 2.44 X10^3/ul (4.0); Lymphocyte % 28.8 % (19-41); Mean Corp Hgb Conc 32.2 g/dL (32-36); Mean Corpuscular Hgb 29.3 pg (27.0-32.0); Mean Corpuscular Volume 90.9 fL (80-94); Mean Platelet Vol. 10.3 fl (6.2-12.0); Monocyte# 0.84 X10^3/uL; Monocyte% 9.9 % (0-10); NRBC Flagged by Analyzer 0 % (0-5); Neutrophil # 4.88 X10^3/uL (2.7-7.7); Neutrophil % 57.5 % (47-70); Platelet Count 244 K/mm3 (150-450); RBC Distribution Width CV 12.8 % (11.6-14.6); RBC Distribution Width SD 41.9 fl (35.1-43.9); Red Blood Count 5.26 M/mm3 (4.6-6.2); White Blood Count 8.5 K/mm3 (4.4-11.0)
[2019-11-28] MEDS: Aspirin 81 MG TAB.CHEW 324 MG PO (11:13)
[2019-11-28] MEDS: Nitroglycerin SL (ED/IMG/CATH) 0.4 MG TABLET SUBLINGUAL ×3 (11:17→11:32)
--- NOTE | 2019-11-28 11:18 | RAD_ITS ---
STUDY: X-RAY CHEST REASON FOR EXAM: Male, 49 years old. Chest pain. Hx of copd TECHNIQUE: Single AP portable view of the chest. COMPARISON: 10/07/2019 FINDINGS: EKG leads overlie the chest The lungs are clear and expanded. There is no demonstrated pleural abnormality. Normal size heart. Normal mediastinum and brian. Normal visualized pulmonary arteries. Normal visualized aortic arch and descending thoracic aorta. There are diffuse degenerative changes of the visualized thoracic spine. Normal visualized ribs, clavicles, and shoulders. There is no demonstrated abnormality of the visualized soft tissue structures of the upper abdomen. RAD/Chest 1 View (Portable) IMPRESSION: No acute pulmonary process Electronically Signed: Nasim Dong MD at 11:28 EDT , Service support ,
[2019-11-28 11:19] LABS: Anion Gap 3 (5-15); BUN 19 mg/dL (7-18); BUN/Creat Ratio 20.7 RATIO (10-20); Calcium,Total 9.3 mg/dL (8.5-10.1); Chloride 105 mmol/L (98-107); Creatinine, Serum 0.92 mg/dL (0.70-1.30); EST Glomerular Filtration Rate 92 mL/min (>60); Est Glom Filt Rate - Afr Amer 112 mL/min (>60); Estimated Creatinine Clearance 105.43 ml/min; Glucose 134 mg/dL (74-106); Potassium 4.1 mmol/L (3.5-5.1); Sodium Level 139 mmol/L (136-145)
[2019-11-28] MEDS: Acetaminophen 500 MG Tablet 1000 MG PO (11:38)
== END 2019-11-28 14:43 | disposition home or self-care (01) ==
PROVIDERS: Emergency Provider Emergency Medicine
DX: R07.9 Chest pain, unspecified (principal); J44.9 Chronic obstructive pulmonary disease, unspecified; Z79.82 Long term (current) use of aspirin; Z79.899 Other long term (current) drug therapy; I25.2 Old myocardial infarction
CPT/HCPCS: 71045; 80048; 84484; 85025; 93005; 99285; A4216

== ENCOUNTER 2019-12-06 08:18 | Outpatient (RCR) | payer OTHER, SELFPAY ==
[2019-10-06 13:21] VITALS: BMI 35.2
[2019-12-06 00:18] VITALS: BP 108/60; BP 148/84
== END 2020-01-05 23:59 ==
LOC: CR 08:18
DX: I25.10 Atherosclerotic heart disease of native coronary artery without angina pectoris (principal); Z95.5 Presence of coronary angioplasty implant and graft
CPT/HCPCS: 93798

== ENCOUNTER → 2020-03-20 06:01 | Outpatient (CLI) | payer OTHER, SELFPAY ==
[2019-10-06 13:21] VITALS: BMI 35.2
[2020-02-06 15:27] VITALS: BMI 35.8
--- NOTE | 2020-03-20 06:05 | ECHOCS_ITS ---
Reason For Study: CAD Procedure This was a 2D Doppler, Color Flow transthoracic echocardiogram. The study was technically difficult. Contrast injection was performed. Exam performed in department. Left Ventricle Normal LV size. Segmental dysfunction with preserved ejection fraction (see wall motion). The estimated ejection fraction is 55 %. No evidence for diastolic dysfunction. Infero-Basal: Hypokinetic. Mid-Inferior: Hypokinetic. Right Ventricle Normal RV size. Normal systolic function. Atria Normal left atrium. Normal right atrium. No doppler evidence for ASD. Mitral Valve There is no mitral annular calcification. Normal mitral valve. Trivial mitral valve insufficiency. Tricuspid Valve Normal tricuspid valve. Trivial tricuspid valve insufficiency. Right ventricular systolic pressure estimated to be 26 mmHg. Aortic Valve Trisinus/trileaflet aortic valve. Normal aortic valve. Pulmonic Valve The pulmonic valve is not well visualized. Great Vessels Normal sized aortic root. Pericardium/Pleural No pericardial effusion. Medication Diluted definity 3.0ml given slow IV push to enhance endocardial definition. MMode/2D Measurements & Calculations LVIDd: 5.4 cm IVSd: 1.2 cm Ao root diam: 3.7 cm LVIDs: 3.9 cm LVPWd: 1.0 cm RVDd: 3.5 cm FS: 27.8 % LAV(MOD-bp): 58.9 ml LA A4 area: 15.7 cm2 LA dimension(2D): 4.2 cm LAV(MOD-bp) Indexed: 24.6 ml/m2 LAV(MOD-sp2): 75.4 ml LAV(MOD-sp4): 40.2 ml RA A4 area: 13.6 cm2 Time Measurements MV dec time: 0.16 sec Doppler Measurements & Calculations MV E max daniel: 80.2 cm/sec Lat Peak E' Daniel: 11.7 cm/sec Med Peak E' Daniel: 8.6 cm/sec MV A max daniel: 63.0 cm/sec E/E' lat: 6.9 E/E' med: 9.3 MV E/A: 1.3 Ao V2 max: 166.4 cm/sec LV V1 max: 103.4 cm/sec TR max daniel: 237.7 cm/sec Ao max P.1 mmHg LV V1 max P.3 mmHg TR max P.6 mmHg Interpretation Summary The study was technically difficult. Contrast injection was performed. Segmental dysfunction with preserved ejection fraction (see wall motion). The estimated ejection fraction is 55 %. Trivial mitral valve insufficiency. Trivial tricuspid valve insufficiency. Right ventricular systolic pressure estimated to be 26 mmHg. No evidence for diastolic dysfunction. Ordering Physician: Haja Bearden Referring Physician: [facility] Performed By: Yolanda Nj, AMALIACS, RVT
[2020-03-20 08:16] LABS: Bedside Glucose 146 mg/dL (70-110)
--- NOTE | 2020-03-20 17:48 | STRESSREP_ITS ---
Stress Test Report Date: 03-20-2020 Procedure: Exercise tolerance test/imaging study Indications: Chest pain; CAD; status post IN; status post PCI Consent: Per the patient Procedure: The patient exercised on a John protocol for 4 minutes and 34 seconds completing Stage I and 1 minute and 34 seconds of Stage II achieving a peak heart rate of 130 bpm (76% predicted maximal heart rate) with a peak blood pressure 160/74 mmHg and a peak MET capacity of 6 METs. The baseline ECG demonstrated normal sinus rhythm. The peak exercise ECG demonstrated no obvious ECG changes. There was a rare PVC during exercise. The functional capacity was considered decreased. There was no complaint of chest discomfort during exercise or recovery. The examination was discontinued secondary to leg discomfort. Impression: 1. Technically inadequate (percent predicted maximal heart rate less than 85%) exercise tolerance test 2. Peak exercise ECG with no obvious ECG changes of the heart rate achieved 3. There was a rare PVC during exercise 4. Pharmacologic (regadenoson) evaluation pending Procedure: Pharmacologic stress nuclear imaging study Consent: Per the patient Procedure: The patient underwent pharmacologic (Regadenoson) evaluation with a peak heart rate of 107 beats per minute (62%predicted maximal heart rate) and a peak blood pressure of 132/74 mmHg. The baseline ECG demonstrated normal sinus rhythm. The peak pharmacologic ECG demonstrated no obvious ECG changes. There were no cardiac dysrhythmias pretest, during pharmacologic infusion, or recovery. There was no complaint of chest discomfort during pharmacologic infusion or recovery. The examination was discontinued secondary to completion of protocol. Impression: 1. Pharmacologic (Regadenoson) evaluation 2. Peak pharmacologic ECG with no obvious ECG changes. 3. There were no cardiac dysrhythmias pretest, during pharmacologic infusion, or recovery. 4. Nuclear images pending Myocardial perfusion imaging study: Technique: The patient was injected with 15.0 millicuries of technetium 99m Cardiolite and subsequently rest SPECT Cardiolite nuclear imaging was obtained in the horizontal long, vertical long, and short axis views. The patient exercised on a John protocol for 4 minutes and 34 seconds completing Stage I and 1 minute and 34 seconds of Stage II achieving a peak heart rate of 130 bpm (76% predicted maximal heart rate) with a peak blood pressure 160/74 mmHg and a peak MET capacity of 6 METs. The patient underwent pharmacologic (Regadenoson) evaluation with a peak heart rate of 107 beats per minute (62% percent predicted maximal heart rate) and a peak blood pressure of 132/74 mmHg. The patient was injected with 45.0 millicuries of technetium 99m Cardiolite and subsequently stress SPECT Cardiolite nuclear imaging was obtained in the horizontal long, vertical long, and short axis views. A gated Cardiolite study at peak stress was obtained. Interpretation: Rest and stress SPECT Cardiolite nuclear imaging status post realignment, normalization, and attenuation correction demonstrate relative uniform tracer uptake and myocardial perfusion appearing within normal limits. There is end systolic thickening and brightening. The gated Cardiolite study demonstrates myocardial thickening and inward wall motion. The reported LVEF is 59%. Impression: 1. Rest and stress SPECT Cardiolite nuclear imaging demonstrate relative uniform tracer uptake and myocardial perfusion appearing within normal limits. 2. The gated Cardiolite study reports an LVEF of 59%. This note was generated with [employer] software. It may contain incorrect words, spelling, and punctuation that were not noted in checking the note before signing.
== END ==
LOC: CVS 06:05
PROVIDERS: Referring Provider Internal Medicine Cardiovascular Disease; Visit Provider Internal Medicine Cardiovascular Disease
DX: R07.9 Chest pain, unspecified (principal); R07.2 Precordial pain; I25.10 Atherosclerotic heart disease of native coronary artery without angina pectoris; I10 Essential (primary) hypertension; E78.2 Mixed hyperlipidemia; I73.9 Peripheral vascular disease, unspecified; Z95.5 Presence of coronary angioplasty implant and graft
CPT/HCPCS: 78452; 82962; 93017; 93306; A9500; Q9957; A4216; C8929; J2785

== ENCOUNTER → 2020-04-23 | Outpatient (CLI) | payer OTHER, SELFPAY ==
[2019-10-06 13:21] VITALS: BMI 35.2
[2020-04-10 12:59] VITALS: BMI 36.6
== END | disposition home or self-care (01) ==
LOC: LABSPEC 10:03
PROVIDERS: PCP Internal Medicine; Referring Provider Internal Medicine; Visit Provider Internal Medicine
DX: J02.9 Acute pharyngitis, unspecified (principal); R05 Cough; R52 Pain, unspecified
CPT/HCPCS: 87635; C9803; U0003

== ENCOUNTER 2020-07-09 06:11 | Observation (INO) | payer OTHER, SELFPAY ==
[2019-10-06 13:21] VITALS: BMI 35.2
[2020-04-10 12:59] VITALS: BMI 36.6
[2020-07-09] VITALS (7 sets, daily range): BP systolic 126–163; BP diastolic 70–90; PULSE 59–97; RESP 16–18; TEMP 36.8–37.2; O2SAT 95–99; BMI 37.0; BMI 35.9
--- NOTE | 2020-07-09 06:17 | EKG12_ITS ---
Test Reason : CP Blood Pressure : / mmHG Vent. Rate : 072 BPM Atrial Rate : 072 BPM P-R Int : 178 ms QRS Dur : 090 ms QT Int : 386 ms P-R-T Axes : 075 -24 030 degrees QTc Int : 422 ms Normal sinus rhythm Normal ECG Confirmed by JOSE EDUARDO GOVEA, COCO ([id number]), slot editor LEROY PHILLIPS ([id number]) on 07/10/2020 1:37:36 PM Referred By: REBECCA Confirmed By:COCO WHITT MD
--- NOTE | 2020-07-09 06:17 | RAD_ITS ---
STUDY: X-RAY CHEST REASON FOR EXAM: Male, 50 years old. HTN, INTERMITTENT CHEST TIGHTNESS AND PRESSURE, WEAKNESS -- PREV HEART ATTACK ONE YEAR AGO TECHNIQUE: Single AP portable view of the chest. COMPARISON: November 28, 2019 chest x-ray FINDINGS: The lungs are clear and expanded. There is no demonstrated pleural abnormality. Normal size heart. Normal mediastinum and brian. Normal visualized pulmonary arteries. Normal visualized aortic arch and descending thoracic aorta. There are diffuse degenerative changes of the visualized thoracic spine. Normal visualized ribs, clavicles, and shoulders. There is no demonstrated abnormality of the visualized soft tissue structures of the upper abdomen. RAD/Chest 1 View (Portable) IMPRESSION: No demonstrated acute cardiopulmonary process. Electronically Signed: Rebecca Washburn MD at 6:36 EST Tel , Service support ,
--- NOTE | 2020-07-09 06:18 | ED.VIS.CHEST ---
History of Present Illness Chief Complaint: Chest Pain Informant: Patient Onset: Today Activity at onset: Rest Timing: Intermittent Quality: Heaviness, Tightness Location: Left Parasternal Worsened By: Nothing Relieved By: Nothing Associated Symptoms: Nausea, Diaphoresis Narrative: Patient is a 50-year-old male with history of coronary artery disease status post PCI stent placements a little over 1 year ago as well as hypertension presenting after an episode of chest tightness and pressure as well as shortness of breath. Patient states he was just watching TV when he suddenly felt a pressure/tightness in his upper chest. He denies any pain associated with it but there was discomfort. He felt short of breath when this was happening. Thought that his heart rate jumped from the 60s to the 90s during this episode. He took his blood pressure and it was elevated around 160/90 which is high for him. Patient took a nitroglycerin which did seem to help the symptoms slightly. He noticed after this he was clammy and sweaty as well as nauseous. This episode lasted for about 15 to 20 minutes. Patient states this was different than when he had his heart attack a year ago is never something like this before. He states he is starting to feel better currently. Patient called EMS and was given a full dose aspirin in route. He denies any recent swelling of his extremities, history of DVT or PE. He denies any recent flulike symptoms and states he is otherwise been feeling well. His facility practice specialist is Dr. Bearden. Prior Similar Symptoms: No CVD Risk Factors: Hypercholesterolemia Past Medical History - Allergies and Home Meds Allergies/Adverse Reactions: Allergies No Known Allergies Allergy (Verified 07/09/20 06:13) Primary Care Physician: Giana Andrea MD [Primary Care Provider] - Past Medical History: - - ALEXEI, coronary artery disease, hypertension, diabetes mellitus, hyperlipidemia Surgical History: - - Cardiac stent Lives: Spouse/ Significant Other Smoking Status: Former smoker Review of Systems General: Reports: Sweats. Denies: Chills, Fever Eyes: Denies: Visual changes - bilaterally, Diplopia ENT: Denies: Rhinorrhea, Sore throat Cardiovascular: Reports: Chest pain - Chest pressure. Denies: Palpitations Respiratory: Reports: Dyspnea. Denies: Cough, Dyspnea on exertion Gastrointestinal: Reports: Nausea. Denies: Abdominal pain, Vomiting, Diarrhea, Melena, Hematochezia Genitourinary: Denies: Dysuria, Hematuria, Frequency Musculoskeletal: Denies: Back pain, Extremity Pain Skin: Denies: Rash, Wounds Neurological: Denies: Headache, Weakness, Numbness Physical Exam Vital Signs/Narrative: Vital Signs Temp Pulse Resp BP Pulse Ox 07/09/20 06:12 99 F 97 17 163/90 H 97 Inital Vital Signs reviewed: Yes General: Well nourished, Well developed, No Acute Distress Head: Normocephalic, Atraumatic Eyes: Perrl, EOMI ENT: Moist mucous membranes, No rhinorrhea Neck: Supple, Nontender Cardiovascular: Regular rate, Regular rhythm, No murmurs Respiratory: No distress, CTA bilaterally, Chest nontender Abdomen: Soft, Nontender, Nondistended, Normal bowel sounds Back: Nontender, Normal Inspection Extremities: Nontender, No edema. Negative for: Edema Skin: Normal color, No rash, - - Patient slightly clammy Neurological: Alert, Oriented x3, Cranial nerves II-XII grossly intact, Normal Strength, Normal Sensation Psychological: Normal affect, Normal Mood Diagnostic/Tx/Re-eval Chest X-Ray - ED: 1 View, Read by ED Physician, Read by Radiologist, No Acute Disease Clinical Impression(s) from Imaging Studies Chest X-Ray 07/09/20 06:17 IMPRESSION: No demonstrated acute cardiopulmonary process. Electronically Signed: Rebecca Washburn MD at 6:36 EST Tel , Service support , Laboratory Data 07/09/20 07/09/20 07/09/20 06:20 06:20 06:20 WBC 8.3 RBC 5.01 Hgb 15.6 Hct 44.6 MCV 89.0 MCH 31.1 MCHC 35.0 RDW Std Deviation 41.4 RDW Coeff of Graham 13.4 Plt Count 204 MPV 10.4 Immature Gran % (Auto) 0.400 Neut % (Auto) 63.0 Lymph % (Auto) 25.6 [place] % (Auto) 7.7 Eos % (Auto) 2.9 Baso % (Auto) 0.4 Absolute Neuts (auto) 5.3 Absolute Lymphs (auto) 2.13 Nucleated RBC % 0 PT 12.3 INR 1.0 D-Dimer Quant (PE/DVT) <= 0.27 Sodium 139 Potassium 4.0 Chloride 105 Carbon Dioxide 25.0 Anion Gap 9 BUN 11 Creatinine 0.91 Estim Creat Clear Calc 105.41 Est GFR (MDRD) Af Amer 113 Est GFR (MDRD) Non-Af 93 BUN/Creatinine Ratio 12.1 Glucose 188 H Calcium 9.4 Troponin I < 0.015 - Rhythm Strip Rhythm Strip: Sinus Rhythm Rate: 72 Ectopy: None - EKG Initial EKG Interpretation: Sinus Rhythm, - - Normal sinus rhythm at a rate of 72 Normal axis Normal intervals Normal ST segments No change prior to prior EKG on 11/28/2019 Prior: Unchanged Treatment: Aspirin, NTG SL, - - Prior to arrival BLADE Risk: H/O CAD Score: 1 - Medical Decision Making Patient evaluated for an episode of chest pressure, shortness of breath and diaphoresis. Lasted for approximately 20 minutes. Patient did take nitroglycerin at home which improved his symptoms. Patient does not have dynamic EKG changes or any signs of ACS on his EKG. His heart score is 4. Given patient's history of ACS/coronary artery disease as well as his concerning presentation today I do think he would benefit from extended cardiac monitoring/observation. Patient is agreeable with this plan of care. He is stable at time of disposition. ED Disposition - Plan for ED Patient: Disposition: Acute Care Hospital [facility] Diagnosis: Chest pain, Hypertension, Presence of stent in coronary artery Referrals: Giana Andrea MD [Primary Care Provider] -
[2020-07-09] MEDS: Ondansetron 4 MG/2 ML Vial IV (06:23)
[2020-07-09] MEDS: Acetaminophen 325 MG Tablet 650 MG PO (06:23)
[2020-07-09 06:25] LABS: Absolute Lymphocyte Count 2.13 X10^3/uL (0.83-4.51); Absolute Neutrophil Count 5.3 X10^3/uL (2.0-7.7); Basophil# 0.03 X10^3/uL; Basophil% 0.4 % (0-1); Eosinophil# 0.24 X10^3/uL; Eosinophils% 2.9 % (0-5); Hematocrit 44.6 % (40-54); Hemoglobin 15.6 g/dL (13.0-16.5); Lymphocyte # 2.13 X10^3/ul (4.0); Lymphocyte % 25.6 % (19-41); Mean Corpuscular Hgb 31.1 pg (27.0-32.0); Mean Platelet Vol. 10.4 fl (6.2-12.0); Monocyte# 0.64 X10^3/uL; Monocyte% 7.7 % (0-10); NRBC Flagged by Analyzer 0 % (0-5); Neutrophil # 5.26 X10^3/uL (2.7-7.7); Platelet Count 204 K/mm3 (150-450); RBC Distribution Width CV 13.4 % (11.6-14.6); RBC Distribution Width SD 41.4 fl (35.1-43.9); Red Blood Count 5.01 M/mm3 (4.6-6.2); White Blood Count 8.3 K/mm3 (4.4-11.0)
[2020-07-09 06:35] LABS: Prothrombin Time (Protime)PT. 12.3 SECONDS (11.7-14.9)
[2020-07-09 06:37] LABS: D-Dimer Quantitative (DVT/PE) <= 0.27 FEU/ug/m (0.27-0.49)
[2020-07-09 06:41] LABS: Anion Gap 9 (5-15); BUN 11 mg/dL (7-18); BUN/Creat Ratio 12.1 RATIO (10-20); Calcium,Total 9.4 mg/dL (8.5-10.1); Chloride 105 mmol/L (98-107); Creatinine, Serum 0.91 mg/dL (0.70-1.30); EST Glomerular Filtration Rate 93 mL/min (>60); Est Glom Filt Rate - Afr Amer 113 mL/min (>60); Estimated Creatinine Clearance 105.41 ml/min; Glucose 188 mg/dL (74-106); Sodium Level 139 mmol/L (136-145)
[2020-07-09] MEDS: 0.9% Normal Saline 1,000 ML 150 ML IV (07:01)
--- NOTE | 2020-07-09 07:13 | PCM.HP.STD ---
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 transplanted heart: [place] heart Qualified Code(s): I25.10 - Atherosclerotic heart disease of [place] coronary artery without angina pectoris (8) Presence of stent in coronary artery Status: Chronic Comment: PCI/ANJEL to mid CX 05/18/19 @ [facility] 05/18/19 (9) Essential hypertension Status: Chronic (10) Myocardial infarction Status: Chronic (11) Diabetes Status: Chronic History of Present Illness Date of Admission: 07/09/20 Chief Complaint: chest pain The patient is a 50 year old M who was up this morning and doing his normal routine had a couple coffee and then start experiencing feeling unwell. Had some upper mid chest pressure, associated with diaphoresis. Patient has a fit bit and states that his resting heart rate is normal in the 50s and noted that his heart rate got up to the 90s when he is feeling unwell. He additionally had shortness of breath and nausea but no vomiting. He had a heart attack back in May 2019 that did require intervention. This episode did not feel like that. Currently he is feeling improved at this time. [] Past Medical History Past Medical History (Chronic Problems): Chronic Problems (Last Reviewed 02/06/20 @ 15:39 by Eleonora Meza) Hypertension (Chronic) Claudication of both lower extremities (Chronic) Mixed hyperlipidemia (Chronic) ALEXEI on CPAP (Chronic) Old myocardial infarction (Chronic) Atherosclerotic heart disease of [place] coronary artery without angina pectoris (Chronic) Presence of stent in coronary artery (Chronic ~05/18/19) PCI/ANJEL to mid CX 05/18/19 @ [facility] 05/18/19 Essential hypertension (Chronic) Myocardial infarction (Chronic) Diabetes (Chronic) Medical History: Medical History (Last Reviewed 07/09/20 @ 07:[address] Shorty Grayson DO) Claudication of both lower extremities (Acute) I73.9 Mixed hyperlipidemia (Chronic) E78.2 ALEXEI on CPAP (Chronic) G47.33, Z99.89 Old myocardial infarction (Acute) I25.2 Atherosclerotic heart disease of [place] coronary artery without angina pectoris (Chronic) I25.10 Presence of stent in coronary artery (Chronic) Onset Date: ~05/18/19 Z95.5 PCI/ANJEL to mid CX 05/18/19 @ [facility] 05/18/19 Essential hypertension (Chronic) I10 Myocardial infarction (Chronic) I21.9 Diabetes (Chronic) E11.9 Allergies No Known Allergies Allergy (Verified 07/09/20 06:13) Home Medications: Ambulatory Orders Medication Instructions Recorded Aspirin [Aspir 81] 81 mg PO DAILY 07/25/19 Atorvastatin Calcium [Lipitor] 80 mg PO QHS 07/25/19 Metformin HCl [Glucophage] 250 mg PO BID 07/25/19 lisinopril 5 mg tablet 5 mg PO DAILY #30 tab 02/06/20 nitroglycerin 0.4 mg sublingual 0.4 mg SUBLINGUAL Q5M PRN #90 tab 02/06/20 tablet clopidogrel 75 mg tablet 75 mg PO DAILY #90 tab 06/11/20 glipizide 2.5 mg tablet, extended 2.5 mg PO DAILY #90 tab 06/11/20 release 24 hr Surgical History: Surgical History (Last Reviewed 07/09/20 @ 07:[address] Shorty Grayson DO) Presence of coronary angioplasty implant and graft Onset Date: ~05/18/19 Z95.5 PCI/ANJEL to mid CX 05/18/19 @ [facility] 05/18/19 History of arthroscopic knee surgery Z98.890 Surgical History: - - Cardiac stent Lives: Spouse/ Significant Other Smoking Status: Former smoker - *Family History Maternal Family History: Family History (Last Reviewed 07/09/20 @ 07:[address] Shorty Grayson DO) Father CVA (cerebral vascular accident) Cancer Heart disease Brain aneurysm COPD (chronic obstructive pulmonary disease) Mother Myocardial infarction Heart disease Hypertension Other Cardiovascular disease Review of Systems Constitutional: Denies: Anorexia, Chills, Fever, Night Sweats Eyes: Denies: Blurred vision, Double vision HEENT: Denies: Head Aches, Sinus Congestion, Sinus Drainage Cardiovascular: Reports: Chest Pain Respiratory: Reports: Shortness of Breath Gastrointestinal: Reports: Nausea. Denies: Vomiting Endocrine: Denies: Change in Body Habitus Hematologic/ Lymphatic: Denies: Easy Bruising, Hx of blood clot Comment: All review of systems were negative except as mentioned above in the history of present illness and the other review of systems. VTE Information - Inpt Only VTE Present on Admission: No VTE Mechan Device Prophylaxis: None VTE Pharm Prophylaxis ordered?: No Patient Problems: Active and Suspected Problems (Last Reviewed 02/06/20 @ 15:39 by Eleonora Meza) Chest pain (Acute) - Physical Exam Vitals/I&O's: Vital Signs Temp Pulse Resp BP Pulse Ox 36.8 C 81 16 126/70 H 97 07/09/20 07:04 07/09/20 07:04 07/09/20 07:04 07/09/20 07:04 07/09/20 07:04 Oxygen Delivery Method Room Air Weight: 123.8 kg Body Mass Index (BMI) 37.0 General: Alert, Cooperative, No apparent distress HEENT: Atraumatic, Normocephalic Oral: Moist Mucosa, No Gingival or Mucosal Lesions/ Ulcerations Neck: No Nodes, Thyroid Normal Size and Texture Lungs: Clear to auscultation, Normal air movement, No rhonchi, No wheeze, No rales Cardiovascular: Regular rate, Regular Rhythm, Normal S1, Normal S2, No murmurs Abdomen: Bowel Sounds Present, Soft, Non Tender, Non-Distended Extremities: No edema, No Calf Tenderness Skin: No rashes, No breakdown Musculoskeletal: No Tenderness to Palpation of Joints or Extremities, No Muscle Wasting Psych/Mental Status: Normal Affect, Appropriate Laboratory Results 07/09/20 06:20: WBC 8.3, RBC 5.01, Hgb 15.6, Hct 44.6, MCV 89.0, MCH 31.1, MCHC 35.0, RDW Std Deviation 41.4, RDW Coeff of [place] 13.4, Plt Count 204, MPV 10.4, Immature Gran % (Auto) 0.400, Neut % (Auto) 63.0, Lymph % (Auto) 25.6, [place] % (Auto) 7.7, Eos % (Auto) 2.9, Baso % (Auto) 0.4, Absolute Neuts (auto) 5.3, Absolute Lymphs (auto) 2.13, Nucleated RBC % 0 07/09/20 06:20: PT 12.3, INR 1.0, D-Dimer Quant (PE/DVT) <= 0.27 07/09/20 06:20: Sodium 139, Potassium 4.0, Chloride 105, Carbon Dioxide 25.0, Anion Gap 9, BUN 11, Creatinine 0.91, Estim Creat Clear Calc 105.41, Est GFR (MDRD) Af Amer 113, Est GFR (MDRD) Non-Af 93, BUN/Creatinine Ratio 12.1, Glucose 188 H, Calcium 9.4, Troponin I < 0.015 07/09/20 06:20: B-Natriuretic Peptide Pending EKG personally reviewed showed normal sinus rhythm no acute changes. Clinical Impression(s) from Imaging Studies Chest X-Ray 07/09/20 06:17 IMPRESSION: No demonstrated acute cardiopulmonary process. Electronically Signed: Rebecca Washburn MD at 6:36 EST Tel , Service support , Current Medications Sodium Chloride () 1,000 mls @ 150 mls/hr IV .Q6H40M ARISTEO Last Admin: 07/09/20 07:01 Dose: 150 mls/hr Documented by: Assessment/Plan All Active Problems (Last Reviewed 02/06/20 @ 15:39 by Eleonora Meza) Chest pain (Acute) 1. Chest pain: BLADE score of 4, Catherine score of 91. Patient had a chemical stress test back in March that was normal. Given the patient's new onset of symptoms and known history of coronary artery disease, will repeat a chemical nuclear stress test. 2. Coronary artery disease: Continue with aspirin, clopidogrel and statin. 3. Diabetes mellitus type 2: Continue with his home medications. 4. VTE prophylaxis: Not indicated given observation status. OBSV E&M: [id number] Initial observation care L2
--- NOTE | 2020-07-09 07:28 | EKG12_ITS ---
Test Reason : ADMISSION Blood Pressure : / mmHG Vent. Rate : 065 BPM Atrial Rate : 065 BPM P-R Int : 176 ms QRS Dur : 086 ms QT Int : 392 ms P-R-T Axes : 055 -15 014 degrees QTc Int : 407 ms Normal sinus rhythm Normal ECG When compared with ECG of 09-JUL-2020 06:23, MANUAL COMPARISON REQUIRED, DATA IS UNCONFIRMED Confirmed by JOSE EDUARDO GOVEA, COCO ([id number]), editor at large LEROY PHILLIPS ([id number]) on 07/10/2020 1:24:48 PM Referred By: HANNAH Confirmed By:COCO WHITT MD
--- NOTE | 2020-07-09 07:31 | PCS.PANDOC ---
PANDEMIC DOCUMENTATION INITIATED: Date: 07/09/20 Time: 729
[2020-07-09 07:53] LABS: BNP,B-Type NATRIURETIC PEPTIDE 10.5 pg/mL (0-100)
[2020-07-09] MEDS: Lisinopril 5 MG Tablet PO (08:02)
[2020-07-09] MEDS: Clopidogrel Bisulfate 75 MG Tablet PO (08:02)
[2020-07-09] MEDS: Aspirin E.C. 81 MG Tablet PO (08:03)
[2020-07-09 11:31] LABS: Bedside Glucose 163 mg/dL (70-110)
--- NOTE | 2020-07-09 13:26 | STRESSREP ---
Stress Test Report Date: 07-09-2020 Procedure: Pharmacologic stress nuclear imaging study Indications: Chest pain; CAD; PCI Consent: Per the patient Procedure: The patient underwent pharmacologic (Regadenoson 0.4mg ) evaluation with a peak heart rate of 107 beats per minute (63%predicted maximal heart rate) and a peak blood pressure of 128/78 mmHg. The baseline ECG demonstrated normal sinus rhythm. The peak pharmacologic ECG demonstrated no obvious ECG changes. There were no cardiac dysrhythmias pretest, during pharmacologic infusion, or recovery. There was no complaint of chest discomfort during pharmacologic infusion or recovery. The examination was discontinued secondary to completion of protocol. Impression: 1. Pharmacologic (Regadenoson) evaluation 2. Peak pharmacologic ECG with no obvious ECG changes. 3. There were no cardiac dysrhythmias pretest, during pharmacologic infusion, or recovery. 4. Nuclear images pending Myocardial perfusion imaging study: Technique: The patient was injected with 14.8 millicuries of technetium 99m Cardiolite and subsequently rest SPECT Cardiolite nuclear imaging was obtained in the horizontal long, vertical long, and short axis views. The patient underwent pharmacologic (Regadenoson) evaluation with a peak heart rate of 107 beats per minute (63% percent predicted maximal heart rate) and a peak blood pressure of 128/78 mmHg. The patient was injected with 44.7 millicuries of technetium 99m Cardiolite and subsequently stress SPECT Cardiolite nuclear imaging was obtained in the horizontal long, vertical long, and short axis views. A gated Cardiolite study at peak stress was obtained. Interpretation: Rest and stress SPECT Cardiolite nuclear imaging status post realignment, normalization, and attenuation correction demonstrate a small area of subtle diminished tracer uptake near the apical segments without significant change between rest and stress. There is end systolic thickening and brightening. The gated Cardiolite study demonstrates myocardial thickening and inward wall motion. The reported LVEF is 60%. Impression: 1. Rest and stress SPECT Cardiolite nuclear imaging demonstrate a small area of subtle diminished tracer uptake near the apical segments without significant change between rest and stress appearing compatible with physiologic apical thinning with no myocardial perfusion changes considered diagnostic for associated stress-induced myocardial ischemia. 2. The gated Cardiolite study reports an LVEF of 60%. This note was generated with [employer] software. It may contain incorrect words, spelling, and punctuation that were not noted in checking the note before signing.
--- NOTE | 2020-07-09 13:50 | PCM.DC ---
- Discharge Diagnoses Current Active Problems: Current Active and Chronic Problems (Last Reviewed 07/09/20 @ 07:[address] Shorty Grayson, DO) Chest pain (Acute) Hypertension (Chronic) Claudication of both lower extremities (Chronic) Mixed hyperlipidemia (Chronic) ALEXEI on CPAP (Chronic) Old myocardial infarction (Chronic) Atherosclerotic heart disease of [place] coronary artery without angina pectoris (Chronic) Presence of stent in coronary artery (Chronic ~05/18/19) PCI/ANJEL to mid CX 05/18/19 @ [facility] 05/18/19 Essential hypertension (Chronic) Myocardial infarction (Chronic) Diabetes (Chronic) You will use the following diet at home:: Calorie/Carbohydrate Controlled (specify 1200, 1400, etc) - 1800 Your food should be the consistency of: Regular Your liquids should be the consistency of: Regular/Thin Discharge Activity: Return to Normal Activity Allergies/Adverse Reactions: Allergies No Known Allergies Allergy (Verified 07/09/20 06:13) Medications to take at Discharge Aspirin [Aspir 81] 81 mg PO DAILY 07/25/19 Atorvastatin Calcium [Lipitor] 80 mg PO QHS 07/25/19 Metformin HCl [Glucophage] 250 mg PO BID 07/25/19 lisinopril 5 mg tablet 5 mg PO DAILY #30 tab 02/06/20 nitroglycerin 0.4 mg sublingual tablet 0.4 mg SUBLINGUAL Q5M PRN #90 tab 02/06/20 clopidogrel 75 mg tablet 75 mg PO DAILY #90 tab 06/11/20 glipizide 2.5 mg tablet, extended release 24 hr 2.5 mg PO DAILY #90 tab 06/11/20 Primary Care Physician: Giana Andrea MD [Primary Care Provider] - Test Results: Test results from this visit will be discussed in further detail at your follow-up appointment, if applicable. Please Follow Up With: [facility] When: this week. appointment scheduled Proposed Discharge Date: 07/09/20
--- NOTE | 2020-07-09 13:52 | PCM.DC.SUM ---
Discharge Date and Diagnosis - Problem List Patient Problems: Active and Suspected Problems (Last Reviewed 07/09/20 @ 07:[address] Shorty Grayson DO) Chest pain (Acute) Date of Admission: 07/09/20 Date of Discharge: 07/09/20 - Primary Discharge Diagnosis Acute Problems: Active Problems (Last Reviewed 07/09/20 @ 07:[address] Shorty Grayson DO) Chest pain (Acute) - Secondary Discharge Diagnosis Chronic Problems: Chronic Problems (Last Reviewed 07/09/20 @ 07:[address] 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 Patient underwent a cardiac work-up, including troponins, EKG and stress test. All of which were negative. Patient did state that this felt different from his myocardial infarction that he had 2019. Told patient that is unclear what caused the symptoms but it could have been just some nausea as he was feeling diaphoretic and was tachycardic with it. Told patient I would not pursue any additional work-up on this unless it becomes recurrent. Patient states that he has a [facility] later on this week and will address any ongoing issues that he may be having at that time. [] Patient Problems: Active and Suspected Problems (Last Reviewed 07/09/20 @ 07:[address] Shorty Grayson DO) Chest pain (Acute) - Physical Exam Vitals/I&O's: Vital Signs Temp Pulse Resp BP Pulse Ox 37.2 C 63 18 159/88 H 95 07/09/20 07:40 07/09/20 07:40 07/09/20 07:40 07/09/20 07:40 07/09/20 07:55 Oxygen Delivery Method Room Air Weight: 120.1 kg Body Mass Index (BMI) 35.9 Intake and Output for Last 24 Hours 07/07/20 07/08/20 07/09/20 23:59 23:59 23:59 Intake Total 24.5 / 24.5 Balance 24.5 / 24.5 Laboratory Results 07/09/20 06:20: WBC 8.3, RBC 5.01, Hgb 15.6, Hct 44.6, MCV 89.0, MCH 31.1, MCHC 35.0, RDW Std Deviation 41.4, RDW Coeff of [place] 13.4, Plt Count 204, MPV 10.4, Immature Gran % (Auto) 0.400, Neut % (Auto) 63.0, Lymph % (Auto) 25.6, [place] % (Auto) 7.7, Eos % (Auto) 2.9, Baso % (Auto) 0.4, Absolute Neuts (auto) 5.3, Absolute Lymphs (auto) 2.13, Nucleated RBC % 0 07/09/20 06:20: PT 12.3, INR 1.0, D-Dimer Quant (PE/DVT) <= 0.27 07/09/20 06:20: Sodium 139, Potassium 4.0, Chloride 105, Carbon Dioxide 25.0, Anion Gap 9, BUN 11, Creatinine 0.91, Estim Creat Clear Calc 105.41, Est GFR (MDRD) Af Amer 113, Est GFR (MDRD) Non-Af 93, BUN/Creatinine Ratio 12.1, Glucose 188 H, Calcium 9.4, Troponin I < 0.015 07/09/20 06:20: B-Natriuretic Peptide 10.5 07/09/20 09:35: Troponin I < 0.015 07/09/20 11:24: POC Glucose 163 H 07/09/20 12:22: Troponin I < 0.015 Current Medications Acetaminophen (Acetaminophen 325 Mg Tablet) 650 mg PO Q6H PRN PRN PRN Reason: Pain Score 1-10/Temp > 100.7 F Aspirin (Aspirin E.C. 81 Mg Tablet) 81 mg PO DAILYCM ARISTEO Last Admin: 07/09/20 08:03 Dose: 81 mg Documented by: Atorvastatin Calcium (Atorvastatin Calcium 80 Mg Tablet) 80 mg PO QHS [facility] Clopidogrel Bisulfate (Clopidogrel Bisulfate 75 Mg Tablet) 75 mg PO DAILY [facility] Last Admin: 07/09/20 08:02 Dose: 75 mg Documented by: Dextrose (Dextrose 50%-Water 25 Gm/50 Ml Disp.Syrin) 0 gm IV X1 PRN; Protocol PRN Reason: Hypoglycemia Glipizide (Glipizide 2.5 Mg Tab.Er.24) [facility] Glucagon (Glucagon 1 Mg/Ml Syringe) 1 mg IM .X1 PRN PRN Reason: Hypoglycemia Sodium Chloride () 250 mls @ 15 mls/hr IV .[id number] PRN PRN Reason: Saline Flush Sodium Chloride () 250 mls @ 15 mls/hr IV .[id number] PRN PRN Reason: Additional IVPB Infusion Insulin Human Lispro (Insulin Lispro 100 Unit/Ml Insuln.Pen) 0 unit SC TIDAC [facility]; Protocol Last Admin: 07/09/20 11:54 Dose: Not Given Documented by: Lisinopril (Lisinopril 5 Mg Tablet) 5 mg PO DAILY [facility] Last Admin: 07/09/20 08:02 Dose: 5 mg Documented by: Metformin HCl (Metformin Hcl 500 Mg Tablet) [facility] Nitroglycerin (Nitroglycerin (Inpatient Use) 0.4 Mg Tab.Subl) 0.4 mg SUBLINGUAL Q5M PRN PRN Reason: chest pain Ondansetron HCl (Ondansetron 4 Mg/2 Ml Vial) 4 mg IV Q8H PRN PRN PRN Reason: NAUSEA/VOMITING Oxycodone HCl (Oxycodone 5 Mg Tablet) 5 mg PO Q4H PRN PRN PRN Reason: Pain Score 4-5 Oxycodone HCl (Oxycodone 5 Mg Tablet) 10 mg PO Q4H PRN PRN PRN Reason: Pain Score 6-10 Sodium Chloride (0.9% Saline Lock 10 Ml Syringe) 10 - 40 ml IV UD PRN PRN Reason: SALINE FLUSH Discharge Diet: 1800 Calorie Control Diet Discharge Activity: Return to Normal Activity Home Medications: Medications to take at Discharge Aspirin [Aspir 81] 81 mg PO DAILY 07/25/19 Atorvastatin Calcium [Lipitor] 80 mg PO QHS 07/25/19 Metformin HCl [Glucophage] 250 mg PO BID 07/25/19 lisinopril 5 mg tablet 5 mg PO DAILY #30 tab 02/06/20 nitroglycerin 0.4 mg sublingual tablet 0.4 mg SUBLINGUAL Q5M PRN #90 tab 02/06/20 clopidogrel 75 mg tablet 75 mg PO DAILY #90 tab 06/11/20 glipizide 2.5 mg tablet, extended release 24 hr 2.5 mg PO DAILY #90 tab 06/11/20 Primary Care Physician: Giana Andrea MD [Primary Care Provider] - [facility] When: this week. appointment scheduled Disposition: Home Minutes spent on discharge:: 32 Patient Condition:: Good Medical Necessity - Tobacco Use Smoking Status: Former smoker Meaningful Use Info Meaningful Use Diagnoses (Choose all that apply): None applicable OBSV E&M: 93204 Observ/hosp same date L2
--- NOTE | 2020-07-09 14:17 | PHA.DC.MR ---
Pharmacy Service has performed discharge medication reconciliation for this patient. The patient's discharge medication list was reviewed for discrepancies and discrepancies were resolved. Home Medications Aspirin [Aspir 81] 81 mg PO DAILY 07/25/19 Atorvastatin Calcium [Lipitor] 80 mg PO QHS 07/25/19 Metformin HCl [Glucophage] 250 mg PO BID 07/25/19 lisinopril 5 mg tablet 5 mg PO DAILY #30 tab 02/06/20 nitroglycerin 0.4 mg sublingual tablet 0.4 mg SUBLINGUAL Q5M PRN #90 tab 02/06/20 clopidogrel 75 mg tablet 75 mg PO DAILY #90 tab 06/11/20 glipizide 2.5 mg tablet, extended release 24 hr 2.5 mg PO DAILY #90 tab 06/11/20
== END 2020-07-09 13:51 | disposition home or self-care (01) ==
LOC: ED 07:02 → PCU 07:22
PROVIDERS: Emergency Provider Emergency Medicine; PCP Internal Medicine
DX: R07.89 Other chest pain (principal); I10 Essential (primary) hypertension; G47.33 Obstructive sleep apnea (adult) (pediatric); E78.2 Mixed hyperlipidemia; I25.2 Old myocardial infarction; I25.10 Atherosclerotic heart disease of native coronary artery without angina pectoris; E11.51 Type 2 diabetes mellitus with diabetic peripheral angiopathy without gangrene; Z79.82 Long term (current) use of aspirin; Z79.02 Long term (current) use of antithrombotics/antiplatelets; Z79.899 Other long term (current) drug therapy; Z79.84 Long term (current) use of oral hypoglycemic drugs; Z95.5 Presence of coronary angioplasty implant and graft; Z87.891 Personal history of nicotine dependence; R06.02 Shortness of breath
CPT/HCPCS: 36415; 71045; 78452; 80048; 82962; 83880; 84484; 85025; 85379; 85610; 93005; 93017; 96374; 99218; 99285; A9500; J7030; A4216; G0378; J2405; J2785

== ENCOUNTER → 2021-04-11 07:32 | Outpatient (CLI) | payer OTHER, SELFPAY ==
[2019-10-06 13:21] VITALS: BMI 35.2
[2021-04-11 10:10] LABS: AST(SGOT) 22 U/L (15-37); Alanine Aminotransfer ALT/SGPT 56 U/L (16-61); Albumin, Serum 3.7 g/dL (3.2-5.0); Alkaline Phosphatase 99 U/L (45-117); Bilirubin, Direct 0.15 mg/dL (0.00-0.30); Cholesterol 107 mg/dL (200); Globulin 3.6 g/dL (2.2-4.2); High Density Lipoprotein 37 mg/dL; Protein, Total 7.3 g/dL (6.4-8.2); Triglycerides 64 mg/dL; Very Low Density Lipoprotein 13 mg/dL (5-40)
== END ==
PROVIDERS: PCP Internal Medicine; Referring Provider Internal Medicine Cardiovascular Disease; Visit Provider Internal Medicine Cardiovascular Disease
DX: E78.00 Pure hypercholesterolemia, unspecified (principal)
CPT/HCPCS: 36415; 80061; 80076

== ENCOUNTER 2021-07-04 11:03 | Outpatient (CLI) | payer OTHER, SELFPAY ==
[2019-10-06 13:21] VITALS: BMI 35.2
[2021-07-04 12:25] LABS: Anion Gap 4 (5-15); BUN 14 mg/dL (7-18); BUN/Creat Ratio 16.4 RATIO (10-20); Calcium,Total 8.9 mg/dL (8.5-10.1); Chloride 103 mmol/L (98-107); Creatinine, Serum 0.85 mg/dL (0.70-1.30); EST Glomerular Filtration Rate 100 mL/min (>60); Est Glom Filt Rate - Afr Amer 121 mL/min (>60); Glucose 254 mg/dL (74-106); Potassium 4.5 mmol/L (3.5-5.1); Sodium Level 137 mmol/L (136-145); T4 Free Direct 0.95 ng/dL (0.76-1.46); Thyroid Stim Hormone (TSH) 3.55 uIU/mL (0.358-3.74)
== END 2021-07-04 23:59 | disposition short-term general hospital (02) ==
PROVIDERS: PCP Internal Medicine; Referring Provider Nurse Practitioner Family; Visit Provider Nurse Practitioner Family
DX: R00.2 Palpitations (principal); I47.2 Ventricular tachycardia; E11.9 Type 2 diabetes mellitus without complications
CPT/HCPCS: 36415; 80048; 83036; 84439; 84443

== ENCOUNTER → 2022-01-05 | Outpatient (CLI) | payer OTHER, SELFPAY ==
[2019-10-06 13:21] VITALS: BMI 35.2
[2022-01-05 07:59] LABS: AST(SGOT) 17 U/L (15-37); Alanine Aminotransfer ALT/SGPT 31 U/L (16-61); Albumin, Serum 3.6 g/dL (3.2-5.0); Alkaline Phosphatase 96 U/L (45-117); Bilirubin, Direct 0.14 mg/dL (0.00-0.30); Cholesterol 94 mg/dL (200); Globulin 3.2 g/dL (2.2-4.2); High Density Lipoprotein 30 mg/dL; Protein, Total 6.8 g/dL (6.4-8.2); Triglycerides 76 mg/dL; Very Low Density Lipoprotein 15 mg/dL (5-40)
== END | disposition home or self-care (01) ==
LOC: LAB 07:00
PROVIDERS: PCP Internal Medicine; Referring Provider Internal Medicine Cardiovascular Disease; Visit Provider Internal Medicine Cardiovascular Disease
DX: E78.2 Mixed hyperlipidemia (principal)
CPT/HCPCS: 36415; 80061; 80076

== ENCOUNTER 2023-06-27 13:27 | Emergency (ER) | payer OTHER, SELFPAY ==
[2019-10-06 13:21] VITALS: BMI 35.2
[2023-06-27 13:28] VITALS: BP 152/73; PULSE 80; RESP 12; TEMP 36.8; O2SAT 99; BMI 35.4
--- NOTE | 2023-06-27 13:32 | RAD_ITS ---
EXAM: XR CHEST, 2 VIEWS CLINICAL INDICATION: chest pain TECHNIQUE: Frontal and lateral views of the chest. COMPARISON: XR Chest dated 07/09/2020 FINDINGS: LUNGS AND PLEURAL SPACES: Normal. No consolidation or edema. No pneumothorax. No effusion. HEART: Normal heart size. MEDIASTINUM: No mediastinal or hilar mass. BONES/JOINTS: No acute abnormality. RAD/Chest PA and Lateral IMPRESSION: No acute cardiopulmonary abnormality. No interval change. Electronically Signed: Anoop Singh MD at 14:37 EST ,
[2023-06-27 13:46] LABS: Absolute Lymphocyte Count 2.61 X10^3/uL (0.83-4.51); Absolute Neutrophil Count 4.9 X10^3/uL (2.0-7.7); Basophil# 0.06 X10^3/uL; Basophil% 0.7 % (0-1); Eosinophil# 0.48 X10^3/uL; Eosinophils% 5.4 % (0-5); Hemoglobin 15.6 g/dL (13.0-16.5); Lymphocyte # 2.61 X10^3/ul (0.83-4.51); Lymphocyte % 29.4 % (19-41); Mean Corp Hgb Conc 31.8 g/dL (32-36); Mean Corpuscular Hgb 28.9 pg (27.0-32.0); Mean Corpuscular Volume 90.7 fL (80-94); Mean Platelet Vol. 10.9 fl (6.2-12.0); Monocyte# 0.78 X10^3/uL; Monocyte% 8.8 % (0-10); NRBC Flagged by Analyzer 0 % (0-5); Neutrophil # 4.92 X10^3/uL (2.7-7.7); Neutrophil % 55.4 % (47-70); Platelet Count 251 K/mm3 (150-450); RBC Distribution Width CV 13.2 % (11.6-14.6); RBC Distribution Width SD 43.8 fl (35.1-43.9); White Blood Count 8.9 K/mm3 (4.4-11.0)
--- OUTSIDE RECORDS SUMMARY | 2023-06-27 13:53 | XMS RPT_ITS | CCD ---
Author Name Unknown Address [address] [place] [address] Organization [facility] Care Team Providers Care Division Superintendent Name Role Phone Shivam CHOU, Patti Sharpe Unavailable Sierra Pinedo MD Primary Care Provider IGNACIO HERNANDEZ Primary Care Unavailable KEN CROCKETT Attending Unavaila ble Medications Current Medications Medication Drug Class(es) Dates Sig (Normalized) Sig (Original) acetaminophen 325 mg oral tablet (1 source) Start: 05-18-2019 take 650 mg by mouth every four hours as needed for pain, then take 4000 mg by mouth every twenty-four hours as needed for pain 650 mg, Oral, EVERY 4 HOURS PRN, Pain Mild (1-3), Fever, Fever >100.5 F (38 C), Starting [facility] 05/18/19 at 2050 Maximum dose of acetaminophen is 4000 mg from all sources in 24 hours. Recovery(Cath) carvedilol 12.5 mg oral tablet (2 sources) alpha-Adrenergic Livan, beta-Adrenergic Livan Start: 05-19-2019 carvedilol (COREG) tablet 12.5 mg Completed/Discontinued Medications Medication Drug Class(es) Dates Sig (Normalized) Sig (Original) ASPIRIN TABS (4 sources) Platelet Aggregation Inhibitor, Nonsteroidal Anti-inflammatory Drug Start: 02-05-2020 AROLDO ASPIRIN TABS 1 tablet daily ASPIRIN TABS [id number] Patti Langley PA-C Problems Active Problems Problem Classification Problem Date Documented Date Episodic/Chronic Acute myocardial infarction (2 sources) Myocardial infarction Onset: 05-18-2019 Resolved: 05-20-2019 Chronic Coronary atherosclerosis and other heart disease (2 sources) Coronary arteriosclerosis in [place] artery Onset: 05-19-2019 Chronic Diabetes mellitus without complication (2 sources) Type 2 diabetes mellitus without complication Chronic Essential hypertension (2 sources) Essential hypertension Onset: 03-02-2019 Chronic Other injuries and conditions due to external causes (1 source) Unspecified injury of left forearm, initial encounter; Translations: [Forearm injury, left, initial encounter] Onset: 03-26-2023 Episodic Other nutritional; endocrine; and metabolic disorders (2 sources) Obese class I Onset: 03-02-2019 Chronic Spondylosis; intervertebral disc disorders; other back problems (1 source) Degeneration of intervertebral disc; Translations: [Other specified dorsopathies, site unspecified] Onset: 02-05-2020 02-05-2020 Chronic Sprains and strains (1 source) Low back strain; Translations: [Strain of muscle, fascia and tendon of lower back, initial encounter] Onset: 02-05-2020 02-05-2020 Episodic Substance-related disorders (2 sources) Nicotine dependence Onset: 03-02-2019 Chronic Past or Other Problems Problem Classification Problem Date Documented Da te Episodic/Chronic Unclassified (1 source) Problem Results Test Name Value Interpretation Reference Range Facil ity Vital Signs Date Time Vital Sign Value Performing Clinician Facility 05-20-2019 11:00-0500 Body temperature 97.81 [degF] Vladimir Keaner DO Work Phone: [facility] Work Phone: 05-20-2019 11:00-0500 Diastolic blood pressure 88 mm[Hg] Vladimir Keaner DO Work Phone: [facility] Work Phone: 05-20-2019 11:00-0500 Heart rate 58 /min Vladimir Keaner DO Work Phone: [facility] Work Phone: 05-20-2019 11:00-0500 Respiratory rate 20 /min Vladimir Keaner DO Work Phone: [facility] Work Phone: 05-20-2019 11:00-0500 Systolic blood pressure 135 mm[Hg] Vladimir Keaner DO Work Phone: [facility] Work Phone: 05-20-2019 07:11-0500 Body mass index (BMI) [Ratio] 33.26 kg/m2 Vladimir Keaner DO Work Phone: [facility] Work Phone: 05-20-2019 07:11-0500 Body weight 111.22 kg Vladimir Keaner DO Work Phone: [facility] Work Phone: 05-19-2019 11:00-0500 SaO2% (BldA) [Mass fraction] 97 % Vladimir Keaner DO Work Phone: [facility] Work Phone: 05-18-2019 20:52-0500 Body height 182.9 cm Vladimirlinda Salamanca DO Work Phone: [facility] Work Phone: NEGATED: Highlighted [id number] 13:40-0400 BMI (Body Mass Index) 35.12 kg/m2 Skylar Babeckico AT [facility] Work Phone: NEGATED: Highlighted [id number] 13:40-0400 Body weight 117.03 kg Skylar Baucco AT [facility] Work Phone: NEGATED: Highlighted [id number] 13:40-0400 Body weight 117 kg Skylar Baucco AT [facility] Work Phone: NEGATED: Highlighted [id number] 13:40-0400 Heart rate 2+ Skylar Baucco AT [facility] Work Phone: NEGATED: Highlighted [id number] 13:40-0400 Height 182.88 cm Skylar Baucco AT [facility] Work Phone: NEGATED: Highlighted [id number] 13:40-0400 Height 183 cm Skylar Baucco AT [facility] Work Phone: Encounters Encounter Date Encounter Type Care Provider Facility Start: 03-26-2023 End: 03-26-2023 Emergency department patient visit IGNACIO HERNANDEZ Facility:[facility] Start: 02-05-2020 End: 02-05-2020 Patient encounter procedure Patti Langley PA-C Work Phone: [facility] Work Phone: Start: 02-05-2020 End: 02-05-2020 Pt evaluation Patti Langley PA-C Work Phone: [facility] Work Phone: Start: 05-18-2019 End: 05-20-2019 Evaluation and management of inpatient Vladimir Salamanca DO Work Phone: [facility] Procedures Date Procedure Procedure Detail Performing Clinician Start: 02-05-2020 End: 02-05-2020 Blood pressure screening not performed - reason not given Patti Langley PA-C Work Phone: Start: 02-05-2020 End: 02-05-2020 BMI documented as above normal parameters - follow-up documented Patti Langley PA-C Work Phone: Start: 02-05-2020 End: 02-05-2020 Documentation of current medications Patti Langley PA-C Work Phone: Start: 02-05-2020 End: 02-05-2020 Pain assessment documented as positive - follow-up documented Patti Langley PA-C Work Phone: Start: 02-05-2020 End: 02-05-2020 Radex spine lumbosacral minimum 4 views Patti Langley PA-C Work Phone: Start: 02-05-2020 End: 02-05-2020 Tobacco non-user Patti Langley PA-C Work Phone: Start: 05-20-2019 Gluc bld gluc mntr d ev cleared fda spec home use Javier Duval MD Work Phone: Start: 05-20-2019 Gluc bld gluc mntr d ev cleared fda spec home use Javier Duval MD Work Phone: Start: 05-20-2019 Comprehensive metabo lic panel Shorty Fried DO Work Phone: Start: 05-19-2019 Gluc bld gluc mntr d ev cleared fda spec home use Vladimir D Keaner DO Work Phone: Start: 05-19-2019 Creatine kinase.MB [Mass/volume] in Serum or Plasma Shorty Fried DO Work Phone: Start: 05-19-2019 Gluc bld gluc mntr d ev cleared fda spec home use Vladimir D Keaner DO Work Phone: Start: 05-19-2019 Echo tthrc r-t 2d w/wom-mode compl spec&colr d Adebayo Sweeney DO Work Phone: Start: 05-19-2019 Creatine kinase.MB [Mass/volume] in Serum or Plasma Shorty Fried DO Work Phone: Start: 05-19-2019 Gluc bld gluc mntr d ev cleared fda spec home use Vladimir D Keaner DO Work Phone: Start: 05-19-2019 Ecg routine ecg w/le ast 12 lds w/i&r Shorty Fried DO Work Phone: Start: 05-19-2019 Comprehensive metabo lic panel Shorty Fried DO Work Phone: Start: 05-19-2019 Creatine kinase.MB [Mass/volume] in Serum or Plasma Shorty Fried DO Work Phone: Start: 05-18-2019 Ecg routine ecg w/le ast 12 lds w/i&r Shorty Fried DO Work Phone: Start: 05-18-2019 Creatine kinase.MB [Mass/volume] in Serum or Plasma Shorty Fried DO Work Phone: Start: 05-18-2019 End: 05-18-2019 Hemoglobin glycosylated a1c Shorty Fried DO Work Phone: Start: 05-18-2019 Lipid panel Shorty W Lel and DO Work Phone: Start: 05-18-2019 CARDIAC CATH NURSING LOG 3m Scanning Start: 05-18-2019 DIAGNOSTIC CARDIAC C ATH LAB PROCEDURE Javier Duval MD Work Phone: NEGATED: Highlighted rowStart: 02-05-2020 End: 02-05-2020 Documentation of current medications Skylar Bauckatharina AT Plan of Treatment Date Care Activity Detail Author Start: 05-20-2020 Creatinine monitoring Creatinine monitoring [facility] Work Phone: Start: 05-20-2020 Potassium monitoring Potassium monitoring [facility] Work Phone: Start: 05-18-2020 A1C test (Diabetic or Prediabetic) A1C test (Diabetic or Prediabetic) [facility] Work Phone: Start: 05-18-2020 Lipid screen Lipid screen [facility] Work Phone: Start: 03-20-2020 End: 03-20-2020 Appointment Appointment [facility] Work Phone: Start: 03-08-2020 Influenza vaccination Flu vaccine (#1) [facility] Work Phone: Payers Date Payer Category Payer Unknown [id number] Social History Date Type Detail Facility Start: 05-18-2019 Tobacco smoking status [facility] Current every day smoker [facility] Work Phone: Start: 05-18-2019 Cigarettes smoked current (pack per day) - Reported [facility] Work Phone: Start: 05-18-2019 Alcohol intake Current drinke r of alcohol (finding) [facility] Work Phone: Start: 05-18-2019 Alcohol Comment occassional; o nce a month [facility] Work Phone: Sex Assigned At Not on file [facility] Work Phone: NEGATED: Highlighted rowStart: 02-05-2020 End: 02-05-2020 Alcohol use Alcohol use [facility] Work Phone: NEGATED: Highlighted rowStart: 02-05-2020 End: 02-05-2020 Details of drug misuse behavior Details of drug misuse behavior [facility] Work Phone: NEGATED: Highlighted rowStart: 02-05-2020 End: 02-05-2020 Employment detail Employment detail [facility] Work Phone: NEGATED: Highlighted rowStart: 02-05-2020 End: 02-05-2020 Assertion Former smoker [facility] Work Phone: NEGATED: Highlighted rowStart: 02-05-2020 End: 02-05-2020 How many days of moderate to strenuous exercise, like a brisk walk, did you do in the last 7 days? How many days of moderate to strenuous exercise, like a brisk walk, did you do in the last 7 days? [facility] Work Phone: History of Present illness Narrative 05-20-2019 Helen Beasley - 05/20/2019 1:13 PM Garland Martines DO - 05/20/2019 8:31 AM Garland Martines DO - 05/19/2019 6:54 AM Patric Bartholomew RN - 05/19/2019 1:32 AM EST Note Date & Type Note Facility 05-20-2019 History of Present illness Narrative .Nutrition rescreen completed. Chart reviewed. Patient to be monitored and followed by the diet prototype technician.DYLAN Simmons CARDIOLOGY PROGRESS NOTE Chart and interval events reviewed. Reason for Visit: Chest pain SUBJECTIVE: Sumi Elizabeth Amado states he is doing well this morning. No acute complaints overnight. Denies chest pain, chest pressure, SOB, diaphoresis, orthopnea, PND. He has been up ambulating. Had a BM last evening and feels good and ready to go home. SCHEDULED MEDICATIONS: lisinopril 40 mg Oral Daily atorvastatin 80 mg Oral Nightly heparin (porcine) 5,000 Units Subcutaneous 3 times per day carvedilol 12.5 mg Oral BID WC aspirin 81 mg Oral Daily ticagrelor 90 mg Oral BID insulin lispro 0-6 Units Subcutaneous TID WC Review of Systems: Review of Systems Constitutional: Negative for activity change, chills, fatigue and fever. HENT: Negative for rhinorrhea. Eyes: Negative for pain and visual disturbance. Respiratory: Negative for cough, choking, shortness of breath and wheezing. Cardiovascular: Negative for chest pain, palpitations and leg swelling. Gastrointestinal: Negative for abdominal distention, abdominal pain, blood in stool, constipation, diarrhea, nausea and vomiting. Skin: Negative for color change, pallor and rash. Neurological: Negative for dizziness, weakness, light-headedness and numbness. Psychiatric/Behavioral: Negative for agitation, behavioral problems, confusion and decreased concentration. VITAL SIGNS: Vitals: 05/20/19 0500 05/20/19 0600 05/20/19 0700 05/20/19 0711 BP: (!) 149/87 (!) 155/90 Pulse: 56 55 63 Resp: Temp: TempSrc: SpO2: Weight: 245 lb 3.2 oz (111.2 kg) Height: Intake/Output Summary (Last 24 hours) at 05/20/2019 0831 Last data filed at 05/20/2019 0721 Gross per 24 hour Intake 2240 ml Output 1500 ml Net 740 ml Patient Vitals for the past 96 hrs (Last 3 readings): Weight 05/20/19 0711 245 lb 3.2 oz (111.2 kg) 05/19/19 0600 257 lb 0.9 oz (116.6 kg) 05/18/19 2052 257 lb 0.9 oz (116.6 kg) Physical Exam: Physical Exam Constitutional: Appearance: Normal appearance. He is normal weight. HENT: Head: Normocephalic and atraumatic. Nose: Nose normal. Mouth/Throat: Mouth: Mucous membranes are moist. Eyes: Extraocular Movements: Extraocular movements intact. Conjunctiva/sclera: Conjunctivae normal. Neck: Musculoskeletal: Normal range of motion. Cardiovascular: Rate and Rhythm: Normal rate. Pulses: Normal pulses. Heart sounds: Normal heart sounds. No murmur. Pulmonary: Effort: Pulmonary effort is normal. No respiratory distress. Breath sounds: Normal breath sounds. Abdominal: General: Abdomen is flat. Bowel sounds are normal. There is no distension. Palpations: Abdomen is soft. Tenderness: There is no tenderness. Musculoskeletal: Normal range of motion. Skin: General: Skin is warm and dry. Coloration: Skin is not jaundiced. Neurological: General: No focal deficit present. Mental Status: He is alert and oriented to person, place, and time. Mental status is at baseline. Psychiatric: Mood and Affect: Mood normal. Behavior: Behavior normal. Thought Content: Thought content normal. Judgment: Judgment normal. Data: Scheduled Meds: Reviewed Continuous Infusions: dextrose CBC: Recent Labs 05/19/19 0307 05/20/19 0522 WBC 11.9* 11.6* HGB 15.4 16.1 HCT 45.6 47.7 PLT 216 193 BMP: Recent Labs 05/19/19 0307 05/20/19 0522 NA 137 139 K 3.9 4.6 CL 107 107 CO2 22 24 BUN 14 12 CREATININE 0.65 0.72 INR: No results for input(s): INR in the last 72 hours. No results for input(s): BNP in the last 72 hours. TSH: No results found for: TSH Cardiac Injury Profile: Recent Labs 05/18/19 2100 05/19/19 0307 05/19/19 0948 05/19/19 1504 CKTOTAL 293* 1,127* 812* 666* CKMB 13.2* 54.2* 32.9* 23.8* TROPONINI 2.800* 2.950* -- -- -- ECG: sinus bradycardia EMS EKG strip: Inferior ST elevation Last Echo: EF 52% with moderate hypokinesis of mid inferior and mid inferolateral myocardium Last stress test : n/a Last cardiac catheterization: n/a Cath : Date 05/18/19 Dr. Duval Result pending IMPRESSIONS/RECOMMENDATIONS: Active Problems: Coronary artery disease involving [place] coronary artery of [place] heart without angina pectoris Essential hypertension Nicotine use disorder Obesity, Class I, BMI 30-34.9 STEMI (ST elevation myocardial infarction) (HCC) Type 2 diabetes mellitus without complication, without long-term current use of insulin (HCC) Resolved Problems: * No resolved hospital problems. * STEMI w/occlusion of OM1 s/p PCI: presented with symptoms of chest pressure with initial EKG findings: ST elevations in leads II, III, aVF - emergent heart cath on 05/18 : ANJEL placed in OM1 - ASA 81 mg, Brilinta 90 mg BID, atorvastatin 80mg - Coreg 12.5mg BID - Increased lisinopril 40mg - EKG showed sinus bradycardia - Echocardiogram showed EF 52% with moderate hypokinesis of mid inferior and mid inferolateral myocardium - Lipid panel cholesterol 123, HDL 29, LDL 79 - Hemoglobin A1c 7.3 - Troponin peak 2.95. Trended down to 2.8 - CK 1127. CK-MB 54.2. Trended down. - Daily CBC, BMP, Mg, P; replace electrolytes as necessary - Cardiac diet Essential Hypertension - Increased lisinopril to 40mg - [facility] Type II Diabetes - holding patient's home metformin 500 mg BID & glipizide 5 mg QD - starting low dose sliding scaled - sees the [facility] for medical managmenet Hyperlipidemia - Lipitor 80 mg QHS - sees the IN for medical management Tobacco Abuse - Tobacco Cessation Education - Patient motivated to quit smoking Obesity - BMI 34.9 Garland Guerrero, PGY-1 Associated attestation - Martinez Vila MD - 05/20/2019 9:12 AM EST I, Dr. Vila, saw and evaluated the patient. I personally obtained the thomas and critical portions of the history and physical exam. I reviewed the chart, the Team's documentation, and discussed the patient with the Team. I agree with the Team's medical decision making and have edited the note to reflect my clinical findings and my assessment and plan. 49 yo male with IW STEMI s/p primary PCI to OM1 with preserved EF. BP stable on COREG and lisinopril. On statin, DPT Ok to d/c to home, d/w patient meds and f/u. CARDIOLOGY PROGRESS NOTE Chart and interval events reviewed. Reason for Visit: Chest pain SUBJECTIVE: Sumi Amado states he is doing well this morning. Complained of chest pain overnight and was started on a nitro gtt overnight. He is chest pain free this morning. Denies CP, SOB, nausea, vomiting, lightheaded and dizziness. SCHEDULED MEDICATIONS: atorvastatin 80 mg Oral Nightly aspirin 81 mg Oral Daily sodium chloride flush 10 mL Intravenous 2 times per day ticagrelor 90 mg Oral BID carvedilol 6.25 mg Oral BID WC insulin lispro 0-6 Units Subcutaneous TID WC Review of Systems: Review of Systems Constitutional: Negative for activity change, chills, fatigue and fever. HENT: Negative for rhinorrhea. Eyes: Negative for pain and visual disturbance. Respiratory: Negative for cough, choking, shortness of breath and wheezing. Cardiovascular: Negative for chest pain, palpitations and leg swelling. Gastrointestinal: Negative for abdominal distention, abdominal pain, blood in stool, constipation, diarrhea, nausea and vomiting. Skin: Negative for color change, pallor and rash. Neurological: Negative for dizziness, weakness, light-headedness and numbness. Psychiatric/Behavioral: Negative for agitation, behavioral problems, confusion and decreased concentration. VITAL SIGNS: Vitals: 05/19/19 0300 05/19/19 0400 05/19/19 0500 05/19/19 0600 BP: (!) 159/86 (!) 150/80 (!) 149/93 129/78 Pulse: 60 61 63 63 Resp: Temp: 98.6 F (37 C) TempSrc: Oral SpO2: 98% 97% 96% 97% Weight: 257 lb 0.9 oz (116.6 kg) Height: Intake/Output Summary (Last 24 hours) at 05/19/2019 0654 Last data filed at 05/19/2019 0300 Gross per 24 hour Intake 300 ml Output 1600 ml Net -1300 ml Patient Vitals for the past 96 hrs (Last 3 readings): Weight 05/19/19 0600 257 lb 0.9 oz (116.6 kg) 05/18/19 2052 257 lb 0.9 oz (116.6 kg) Physical Exam: Physical Exam Constitutional: Appearance: Normal appearance. He is normal weight. HENT: Head: Normocephalic and atraumatic. Nose: Nose normal. Mouth/Throat: Mouth: Mucous membranes are moist. Eyes: Extraocular Movements: Extraocular movements intact. Conjunctiva/sclera: Conjunctivae normal. Neck: Musculoskeletal: Normal range of motion. Cardiovascular: Rate and Rhythm: Normal rate. Pulses: Normal pulses. Heart sounds: Normal heart sounds. No murmur. Pulmonary: Effort: Pulmonary effort is normal. No respiratory distress. Breath sounds: Normal breath sounds. Abdominal: General: Abdomen is flat. Bowel sounds are normal. There is no distension. Palpations: Abdomen is soft. Tenderness: There is no tenderness. Musculoskeletal: Normal range of motion. Skin: General: Skin is warm and dry. Coloration: Skin is not jaundiced. Neurological: General: No focal deficit present. Mental Status: He is alert and oriented to person, place, and time. Mental status is at baseline. Psychiatric: Mood and Affect: Mood normal. Behavior: Behavior normal. Thought Content: Thought content normal. Judgment: Judgment normal. Data: Scheduled Meds: Reviewed Continuous Infusions: nitroGLYCERIN 20 mcg/min (05/19/19 0430) dextrose CBC: Recent Labs 05/19/19 030 WBC 11.9* HGB 15.4 HCT 45.6 PLT 216 BMP: Recent Labs 05/19/19 030 NA 137 K 3.9 CL 107 CO2 22 BUN 14 CREATININE 0.65 INR: No results for input(s): INR in the last 72 hours. No results for input(s): BNP in the last 72 hours. TSH: No results found for: TSH Cardiac Injury Profile: Recent Labs 05/18/19 2100 05/19/19 0307 CKTOTAL 293* 1,127* CKMB 13.2* 54.2* TROPONINI 2.800* 2.950* -- ECG: sinus rhythm, ST elevation EMS EKG strip: Inferior ST elevation Last Echo: n/a Last stress test : n/a Last cardiac catheterization: n/a Cath : Date 05/18/19 Dr. Duval Result pending IMPRESSIONS/RECOMMENDATIONS: Active Problems: STEMI (ST elevation myocardial infarction) (HCC) Resolved Problems: * No resolved hospital problems. * STEMI w/ occlusion of OM1 s/p PCI: presented with symptoms of chest pressure with initial EKG findings: ST elevations in leads II, III, aVF - emergent heart cath on 05/18 : ANJEL placed in OM1 - ASA 81 mg, Brilinta 90 mg BID, atorvastatin 80mg - Coreg 6.25mg BID - Lisinopril 5mg (increased from home dose of 2.5mg) - EKG showed sinus rhythm - Echocardiogram pending - Lipid panel pending - Hemoglobin A1c 7.3 - Troponin peak 2.95. Trended down to 2.8 - CK 1127. CK-MB 54.2. Trending - Daily CBC, BMP, Mg, P; replace electrolytes as necessary - Cardiac diet Essential Hypertension - Increased lisinopril to 5mg (increased from home dose) - sees the [facility] for medical management Type II Diabetes - holding patient's home metformin 500 mg BID & glipizide 5 mg QD - starting low dose sliding scaled - sees the IN for medical managmenet Hyperlipidemia - Lipitor 40 mg QHS - sees the IN for medical management Tobacco Abuse - Tobacco Cessation Education - Patient motivated to quit smoking Obesity - BMI 34.9 Garland Guerrero, PGY-1 Associated attestation - Martinez Vila MD - 05/19/2019 10:59 AM EST I, Dr. Vila, saw and evaluated the patient. I personally obtained the thomas and critical portions of the history and physical exam. I reviewed the chart, the Team's documentation, and discussed the patient with the Team. I agree with the Team's medical decision making and have edited the note to reflect my clinical findings and my assessment and plan. 49 yo male with STEMI IW s/p primary PCI to OM1 Tobacco abuse, DM Type II Now on appropriate meds and an increased dose of lisinopril. Continue supportive care. Radi band removed, no signs or bleeding or hematoma formation. Dressing placed over right radial site. VSS. Will continue to monitor site and vital signs. documented in this encounter [facility] Work Phone: Hospital Discharge instructions 05-19-2019 Instructions Note Date & Type Note Facility 05-19-2019 Hospital Discharg e instructions Adam De Leon, JACINTO - GEAR SHAPER SET UP OPERATOR - 05/19/2019 If you have questions, issues, or concerns please call or text the Ischemic Heart Disease coordinator Advance Practice Nurse cell phone # [phone] Cardiac Rehab The Cardiac Rehabilitation Team at [facility] consists of highly skilled healthcare professionals, including nurses, physicians, dietitians, and exercise physiologists all working together to help you return to a healthy, and active lifestyle. As a survivor of heart disease the program is designed to answer all of your questions about the disease through education, activity, monitored exercise, diet modification, and medication adherence. This program is proven to reduce reoccurrence of heart disease and reduce readmission. It is important for you to enroll in the program by attending orientation. For any questions regarding this valuable service please call # [phone] Orientation is available on all Wednesdays at 1130 am location in the [address] Call your doctor with any medication questions or if you notice any side effects from your medications. If you are unable to fill your medications, please call your [facility] immediately. The office number is located with your follow-up appointment information. Call your doctor if any redness or drainage from the wound site. DO NOT stop taking your medication unless instructed to do so by your doctor. Read the drug information material that were given to you and take medications as instructed by your doctor. New drugs may have been added to your medications, that will strengthen your heart and prevent re-stenosis of the coronary arteries. Drink 6 glasses of water (8 ounces each) over the next 24 hours. Water helps clear the dye from your body. No alcoholic beverages for 24 hours. It may interfere with healing. No exercise or sex for 5 days. Call 911 for chest pain, arm pain, nausea, neck pain, dizziness or unusual sweating AND your pain has not relieved with 2 doses of Nitroglycerin. Call your doctor if a lump at the puncture site enlarges or is larger than marble size. Call your doctor for numbness, tingling, or swelling of the fingers, hand or wrist. Call your doctor for increased area or bruising with discoloration extending into the arm. If bleeding occurs, hold pressure with your thumb against the puncture site and your finger against the back of the wrist for 10 minutes, if BLEEDING continues CALL 911. OK to shower. No tub baths, swimming pools or hot tub soaking for three days. Wash site daily with soap and water, dry gently. The healing wound should remain soft and dry. Keep site clean and dry, no soaking of wrist for three days (no cleaning or dish washing). Remove band aid the day after procedure and leave open to air. No bending of affected wrist for 24 hours. DO NOT lift more than three pounds for 3-5 days[address] for 24 hours. GIVE PCI PACKET (FROM AUTOMATIC PRESSER) TO PATIENT Give Coronary Artery Discharge Booklet PLEASE CALL YOUR HEART DOCTOR IF YOU CANNOT GET YOUR MEDICATIONS. THE NUMBER IS LISTED WITH YOUR FOLLOW-UP APPOINTMENT. Procedure Sedation Instructions 1. If you have received sedation: you must have someone drive you home 2. You should not drive a car, operate machinery, drink alcohol or perform any activity that requires alertness for the rest of the day. The effects of the sedative should be gone by tomorrow. documented in this encounter [employer] 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 Patient examined by me prior to discharge along with RN. Over 30 minutes spent by me in discharge day care. Discussed with Dr. Hdz, with RN AND with JACINTO. Ignacio Hernandez MD 03/07/2019 9:48 AM DISCHARGE SUMMARY PATIENT NAME: Sumi Amado Code Status: Not on file Highest Readmission Risk Score: 6 The 30 day readmissions risk score is derived from an internally validated risk model which evaluates patient level characteristics, utilization history, medication orders and lab results up until the day of discharge. Patients with a score of 40 or above are considered high (more content not included)... Chief Complaint Chief Complaint Description Start Date lower back pain Preliminary chief co mplaint data, not yet signed by the author as of Instructions Instruction Description Start Date Patient advised to follow-up with Primary Care Physician for BMI management. Assessments There may be information available, but it has not been provided by the sender. Review of System There may be information available, but it has not been provided by the sender. History of Present Illness There may be information available, but it has not been provided by the sender. Additional Source Comments (unrecognized sect ion and content) No Status Records FoundNo Status Records FoundNo Status Records FoundNo Status Records FoundNo Status Records Found INFORMATION SOURCE (unrecogn ized section and content) DATE CREATED AUTHOR AUTHOR'S ORGANIZ ATION 06/26/2019 [facility] DATE CREATED AUTHOR AUTHOR'S ORGANIZ ATION 11/02/2020 [facility] ([place]) DATE CREATED AUTHOR AUTHOR'S ORGANIZ ATION 11/04/2021 [facility] DATE CREATED AUTHOR AUTHOR'S ORGANIZ ATION 03/28/2023 [facility] Reason for Visit (unrecogniz ed section and content) FOR RECORDS PERTAINING TO PATIENTS WHO ARE OR HAVE BEEN ENROLLED IN A CHEMICAL DEPENDENCY/SUBSTANCEABUSE PROGRAM, SOME INFORMATION MAY BE OMITTED. This clinical summary was aggregated from multiple sources. Caution should be exercised in using it in the provision of clinical care. This summary normalizes information from multiple sources, and as a consequence, information in this document may materially change the coding, format and clinical context of patient data. In addition, data may be omitted in some cases. CLINICAL DECISIONS SHOULD BE BASED ON THE PRIMARY CLINICAL RECORDS. [facility]. provides no warranty or guarantee of the accuracy or completeness of information in this document.
[2023-06-27 14:01] LABS: Anion Gap 8 (5-15); BUN 15 mg/dL (7-18); BUN/Creat Ratio 15.8 RATIO (10-20); Chloride 105 mmol/L (98-107); Creatinine, Serum 0.95 mg/dL (0.70-1.30); EST Glomerular Filtration Rate 88 mL/min (>60); Est Glom Filt Rate - Afr Amer 107 mL/min (>60); Estimated Creatinine Clearance 118.04 ml/min; Glucose 193 mg/dL (74-106); Sodium Level 140 mmol/L (136-145); Troponin-I HS (w/2H Reflex) 8 pg/mL (3.0-78.0)
[2023-06-27 14:17] LABS: Magnesium 1.9 mg/dL (1.6-2.6)
--- NOTE | 2023-06-27 14:52 | EDS_ITS ---
HPI History of Present Illness Chief Complaint: Chest Pain Informant: patient Narrative Narrative: Patient is a 53-year-old male with history of hypertension and ACS presenting for generalized feeling of feeling off and some mild chest discomfort. He checked his blood pressure at home initially was 140/83 but on subsequent checks it went to 155 systolic. States he has more of a tightness in his chest. Does not like his prior heart attack. Has some mild nausea and a headache. He had intermittent episodes of feeling cold and clammy. No reported fever, abdominal pain, vomiting, diarrhea or URI symptoms. States he felt fine yesterday. Patient has history wanted to be evaluated. No other complaints or concerns at this time. 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 Diabetes Essential hypertension Hypertension Mixed hyperlipidemia Myocardial infarction Old myocardial infarction ALEXEI on CPAP Paroxysmal ventricular tachycardia Presence of stent in coronary artery (~05/18/19) Home Medications aspirin 81 mg tablet,delayed release 81 mg PO DAILY heart health 07/25/19 [History Last Taken 07/08/20] atorvastatin 80 mg tablet 80 mg PO QHS cholesterol 07/25/19 [History Last Taken 07/08/20] lisinopril 5 mg tablet 5 mg PO DAILY #30 tabs 02/06/20 [Rx Last Taken 07/08/20] clopidogrel 75 mg tablet 75 mg PO DAILY Anti-platelet #90 tabs 06/11/20 [Rx Last Taken 07/09/20] albuterol sulfate 90 mcg/actuation aerosol inhaler 2 puff inhalation Q4H PRN 07/04/21 [History Last Taken Unknown] glipizide 5 mg tablet, extended release 24 hr 5 mg PO DAILY Diabetes #90 tabs 01/19/22 [Rx Last Taken Unknown] metformin 500 mg tablet,extended release 24 hr 250 mg PO BID 06/26/22 [History Last Taken Unknown] nitroglycerin 0.4 mg sublingual tablet 0.4 mg sublingual Q5-15M PRN chest pain #25 tabs 08/03/22 [Rx Last Taken Unknown] metoprolol succinate 25 mg tablet,extended release 24 hr 12.5 mg (1/2 x 25 mg) PO DAILY #45 tabs 02/15/23 [Rx Last Taken Unknown] Allergy/AdvReac Type Severity Reaction Status Date / Time No Known Allergies Allergy Verified 12/21/22 10:17 Family History Father CVA (cerebral vascular accident) Cancer Heart disease Brain aneurysm COPD (chronic obstructive pulmonary disease) Mother Myocardial infarction Heart disease Hypertension Other Cardiovascular disease Surgical History History of arthroscopic knee surgery Presence of coronary angioplasty implant and graft (~05/18/19) Social History Smoking Status: Current every day smoker tobacco type: cigarettes how long ago did patient quit smokin05/18/19 alcohol intake: current alcohol intake frequency: a few times a month substance use type: does not use caffeine: Yes Type: coffee Number of servings: 4 what type of physical activity do you participate in: walking ROS ROS ED Constitutional Constitutional ED: Denies chills or fever(s) Eyes Eyes: Denies blurry vision ENT ENT ED: Denies rhinorrhea or sore throat Cardiovascular Cardiovascular: Reports chest pain Respiratory/Chest Respiratory/Chest: Denies cough or dyspnea Gastrointestinal Gastrointestinal: Reports nausea; Denies vomiting Genitourinary Genitourinary ED: Denies dysuria Musculoskeletal Musculoskeletal: Denies arthralgias, myalgias or neck pain Integumentary Denies rash Neurologic Neurologic: Reports headache(s); Denies paresthesias or weakness Psychiatric Psychiatric: Denies anxiety Hematologic/Lymphatic Hematologic/Lymphatic: Denies easy bleeding or easy bruising EXAM Physical Exam Const Vital Signs: 06/27/23 13:28 06/27/23 13:30 06/27/23 13:56 Temperature 98.2 F Temperature Source Temporal Pulse Rate 80 Respiratory Rate 12 Respiratory Effort Normal Non-Labored Blood Pressure 152/73 H Blood Pressure Mean 99 Pulse Ox 99 Oxygen Delivery Method Room Air Room Air Positive well nourished and well developed General Appearance ED: well developed and NAD HEENT Reports moist mucous membranes normocephalic Eyes PERRL and EOMs intact bilaterally Neck supple and no JVD Chest Wall inspection of chest normal and palpation of chest normal Resp normal respiratory effort and clear to auscultation bilaterally Cardio regular rate, regular rhythm and no murmurs GI normal to inspection, nondistended, normoactive bowel sounds and soft to palpation Extremity normal to inspection General Extremety ED: Negative for edema General Extremity: Negative for edema Neuro oriented x3 Sensorium / Orientation: awake and alert Motor Exam: Negative for general weakness Psych mental status grossly normal Skin no rashes or lesions noted and no wounds Heart Score History: Slightly/Non-Suspicious ECG: Normal Age: >45 - <65 years Risk Factors: >/= 3 Risk Factors or History of CAD Troponin: </= Normal Limit Score: 3 MDM MDM MDM Narrative Medical decision making narrative: Patient presents the ER with a vague sensation of tightness in his chest and feeling off. Blood pressure mildly elevated. Patient appears nontoxic in no acute distress. Differential includes ACS, pneumonia, viral syndrome or electrolyte abnormality. EKG is normal sinus rhythm with no acute ischemic process. 2 view chest x-ray viewed by myself as well as radiology does not show any acute process. Delta high-sensitivity troponin is normal at 8 and 5 respectively. CBC and CMP largely unremarkable. Glucose is elevated at 193 however patient does have a history of diabetes. Will be informed of glucose findings. Vital panel negative for COVID, influenza and RSV. While in the ER patient's blood pressure is improved. He continues to have a pounding headache and is offered Tylenol but states that he can take some when he gets home. Counseled that the exact cause of his general malaise is not clear, could be part of an early viral syndrome but is given encouraged to return to the emergency room. Did discuss giving a dose of subcu insulin prior to discharge for his hyperglycemia. Patient states he will just go home and drink lots of water and take his diabetic medicine is being more conscientious with his diet. He thinks his high blood sugar could be causing his generalized malaise. Lab Data Attestation: I reviewed the patient's lab results. Labs: Laboratory Results - last 24 hr 06/27/23 06/27/23 13:30 15:35 WBC 8.9 RBC 5.40 Hgb 15.6 Hct 49.0 MCV 90.7 MCH 28.9 MCHC 31.8 L RDW Std Deviation 43.8 RDW Coeff of Graham 13.2 Plt Count 251 MPV 10.9 Immature Gran % (Auto) 0.300 Neut % (Auto) 55.4 Lymph % (Auto) 29.4 [place] % (Auto) 8.8 Eos % (Auto) 5.4 H Baso % (Auto) 0.7 Absolute Neuts (auto) 4.9 Absolute Lymphs (auto) 2.61 Nucleated RBC % 0 Sodium 140 Potassium 4.0 Chloride 105 Carbon Dioxide 27.0 Anion Gap 8 BUN 15 Creatinine 0.95 Estim Creat Clear Calc 118.04 Est GFR (MDRD) Af Amer 107 Est GFR (MDRD) Non-Af 88 BUN/Creatinine Ratio 15.8 Glucose 193 H Calcium 9.0 Magnesium 1.9 Troponin I High Sens 8 5 Radiography Chest X-Ray - ED: 2 View, Read by ED Physician, Read by Radiologist and No Acute Disease Diagnostic Testing: Clinical Impression(s) from Imaging Studies Chest X-Ray 06/27/23 13:32 IMPRESSION: No acute cardiopulmonary abnormality. No interval change. Electronically Signed: Anoop Singh MD at 14:37 EST Reading Location ID and State: [address] [place] [address] Tel , Service support , Rhythm Strip Rhythm Strip: Sinus Rhythm Rate: 79 Ectopy: None EKG Initial EKG: Attestation: I personally reviewed and interpreted this EKG as follows: Interpretation: Sinus Rhythm Comments: Normal sinus rhythm at a rate of 79 Normal axis Normal intervals Normal ST segments Discharge Plan Triage Chief Complaint: Chest Pain ED Provider: Cristela Campoverde Dx/Rx/DC Orders Clinical Impression: Malaise, Hyperglycemia, Chest discomfort Instructions: ED Chest Pain, Uncertain Cause, ED Diabetic Hyperglycemia Prescriptions: No Action lisinopril 5 mg tablet 5 mg PO DAILY Qty: 30 6RF albuterol sulfate 90 mcg/actuation HFA aerosol inhaler 2 puff inhalation Q4H PRN Patient Comments: inhale 2 puffs by mouth every 4 to 6 hours glipizide 5 mg tablet extended release 24hr 5 mg PO DAILY Qty: 90 1RF metformin 500 mg tablet extended release 24 hr 250 mg PO BID atorvastatin 80 MG tablet 80 mg PO QHS aspirin 81 MG tablet,delayed release (DR/EC) 81 mg PO DAILY clopidogrel 75 mg tablet 75 mg PO DAILY Qty: 90 3RF nitroglycerin 0.4 mg tablet, sublingual 0.4 mg SUBLINGUAL Q5-15M PRN (Reason: chest pain) Qty: 25 1RF Rx Instructions: do not exceed 3 doses per episode metoprolol succinate 25 mg tablet extended release 24 hr 12.5 mg PO DAILY Qty: 45 3RF [facility] Provider[facility] Referrals: [facility] [Primary Care Provider] - Activity Restrictions/Additional Instructions: Your workup was largely normal today. Your blood sugar was elevated (glucose of 193). Please drink extra water when you get home as we discussed. No signs of acute stress on your heart but please return to the emergency room for progression or worsening of your symptoms. Disposition Disposition: Home, Self Care
[2023-06-27 15:00] VITALS: BP 115/68; PULSE 60; RESP 15; O2SAT 97
[2023-06-27 15:40] LABS: Reflex Troponin-HS? (from REC) Y
[2023-06-27 16:00] VITALS: BP 117/63; PULSE 58; RESP 16; O2SAT 97
[2023-06-27 16:03] LABS: Troponin-I HS 5 pg/mL (3.0-78.0)
[2023-06-27 17:00] VITALS: BP 115/66; PULSE 60; RESP 16; O2SAT 97
== END 2023-06-27 17:06 | disposition home or self-care (01) ==
PROVIDERS: Emergency Provider Emergency Medicine; Visit Provider Emergency Medicine
DX: E11.65 Type 2 diabetes mellitus with hyperglycemia (principal); R53.81 Other malaise; I10 Essential (primary) hypertension; R51.9 Headache, unspecified; R11.0 Nausea; I25.10 Atherosclerotic heart disease of native coronary artery without angina pectoris; Z11.52 Encounter for screening for COVID-19; E78.2 Mixed hyperlipidemia; R07.89 Other chest pain; I25.2 Old myocardial infarction; F17.210 Nicotine dependence, cigarettes, uncomplicated; Z79.82 Long term (current) use of aspirin; Z79.84 Long term (current) use of oral hypoglycemic drugs; Z79.899 Other long term (current) drug therapy; Z95.5 Presence of coronary angioplasty implant and graft
CPT/HCPCS: 71046; 80048; 83735; 84484; 85025; 87631; 93005; 99284; A4216

== ENCOUNTER → 2023-11-29 | Outpatient (CLI) | payer OTHER, SELFPAY ==
[2019-10-06 13:21] VITALS: BMI 35.2
[2023-11-29 09:12] LABS: AST(SGOT) 15 U/L (15-37); Alanine Aminotransfer ALT/SGPT 28 U/L (16-61); Albumin, Serum 3.7 g/dL (3.2-5.0); Alkaline Phosphatase 108 U/L (45-117); Bilirubin, Direct 0.17 mg/dL (0.00-0.30); Cholesterol 102 mg/dL (200); Globulin 3.5 g/dL (2.2-4.2); High Density Lipoprotein 32 mg/dL; Protein, Total 7.2 g/dL (6.4-8.2); Triglycerides 56 mg/dL; Very Low Density Lipoprotein 11 mg/dL (5-40)
== END | disposition home or self-care (01) ==
LOC: LAB 06:52
PROVIDERS: Referring Provider Nurse Practitioner Family; Visit Provider Nurse Practitioner Family
DX: E78.2 Mixed hyperlipidemia (principal)
CPT/HCPCS: 36415; 80061; 80076

== ENCOUNTER 2024-06-21 19:13 | Emergency (ER) | payer OTHER, SELFPAY ==
[2019-10-06 13:21] VITALS: BMI 35.2
[2024-06-21] VITALS (11 sets, daily range): BP systolic 132–168; BP diastolic 64–78; PULSE 59–78; RESP 10–17; TEMP 36.1–36.7; O2SAT 95–100; BMI 35.5
[2024-06-21 19:38] LABS: Absolute Lymphocyte Count 3.08 X10^3/uL (0.83-4.51); Absolute Neutrophil Count 4.5 X10^3/uL (2.0-7.7); Basophil# 0.06 X10^3/uL; Basophil% 0.7 % (0-1); Eosinophil# 0.41 X10^3/uL; Eosinophils% 4.6 % (0-5); Hematocrit 44.8 % (40-54); Hemoglobin 14.8 g/dL (13.0-16.5); Lymphocyte # 3.08 X10^3/ul (0.83-4.51); Lymphocyte % 34.8 % (19-41); Mean Corpuscular Hgb 29.3 pg (27.0-32.0); Mean Corpuscular Volume 88.7 fL (80-94); Mean Platelet Vol. 10.6 fl (6.2-12.0); Monocyte# 0.84 X10^3/uL; Monocyte% 9.5 % (0-10); NRBC Flagged by Analyzer 0 % (0-5); Neutrophil # 4.45 X10^3/uL (2.7-7.7); Neutrophil % 50.2 % (47-70); Platelet Count 230 K/mm3 (150-450); RBC Distribution Width CV 12.9 % (11.6-14.6); RBC Distribution Width SD 41.9 fl (35.1-43.9); Red Blood Count 5.05 M/mm3 (4.6-6.2); White Blood Count 8.9 K/mm3 (4.4-11.0)
--- NOTE | 2024-06-21 19:40 | RAD_ITS ---
STUDY: X-RAY CHEST REASON FOR EXAM: Male, 54 years old. chest pain TECHNIQUE: PA and lateral COMPARISON: None. FINDINGS: The lungs are clear and expanded. There is no demonstrated pleural abnormality. Normal size heart. Normal mediastinum and brian. Normal visualized pulmonary arteries. Normal visualized aortic arch and descending thoracic aorta. Dorsal spine demonstrates mild degenerative change. Normal visualized ribs, clavicles, and shoulders. There is no demonstrated abnormality of the visualized soft tissue structures of the upper abdomen. RAD/Chest PA and Lateral IMPRESSION: No acute cardiopulmonary pathology. Electronically Signed: Guy Coyle MD at 19:54 EST ,
[2024-06-21 20:01] LABS: Anion Gap 5 (5-15); BUN 15 mg/dL (7-18); BUN/Creat Ratio 18.3 RATIO (10-20); Calcium,Total 9.3 mg/dL (8.5-10.1); Chloride 105 mmol/L (98-107); Creatinine, Serum 0.82 mg/dL (0.70-1.30); EST Glomerular Filtration Rate 104 mL/min (>60); Est Glom Filt Rate - Afr Amer 126 mL/min (>60); Estimated Creatinine Clearance 135.47 ml/min; Glucose 185 mg/dL (74-106); Sodium Level 137 mmol/L (136-145); Troponin-I HS (w/2H Reflex) 8 pg/mL (3.0-78.0)
--- NOTE | 2024-06-21 20:23 | EDS_ITS ---
HPI History of Present Illness Chief Complaint: Chest Pain Narrative Narrative: Patient is a 54-year-old male with past medical history of tobacco use, hypertension, diabetes, CAD status post stent approximately 5 years ago, ALEXEI who presents to the emergency department with a chief complaint of chest pain. Patient states that while at work today he developed a little bit of chest pain in the center of his chest states it did not radiate anywhere. He states that he was sitting down at a computer not exerting himself when the pain started. He states that it was on and off throughout the day and was doing well while going home. He states that as the evening went on he ended up sitting in his chair watching TV and the pain returned. Given his history of a heart attack his was concerned and wanted him to come here for further evaluation management. He states that up if he gets up and exerts himself he does not have any pain. Patient denies any recent travel history denies any history of blood clots or surgeries. Patient did note that he checked his blood pressure earlier's evening noted that it was running high states been taking his medications as prescribed. Patient states that he has not had a stress test in a significant mount time. [facility] Medical History Cellulitis of right forearm Acute maxillary sinusitis, unspecified Paroxysmal ventricular tachycardia Hypertension Claudication of both lower extremities Mixed hyperlipidemia ALEXEI on CPAP Old myocardial infarction Atherosclerotic heart disease of [place] coronary artery without angina pectoris Presence of stent in coronary artery (~05/18/19) Essential hypertension Diabetes Myocardial infarction Home Medications ?Medication ?Instructions ?Recorded ?Last Taken ?Type aspirin 81 mg tablet,delayed 81 mg PO DAILY heart health 07/25/19 07/08/20 History release atorvastatin 80 mg tablet 80 mg PO QHS cholesterol 07/25/19 07/08/20 History lisinopril 5 mg tablet 5 mg PO DAILY #30 tabs 02/06/20 07/08/20 Rx clopidogrel 75 mg tablet 75 mg PO DAILY Anti-platelet #90 06/11/20 07/09/20 Rx tabs glipizide 5 mg tablet, extended 5 mg PO DAILY Diabetes #90 tabs 01/19/22 Unknown Rx release 24 hr metformin 500 mg tablet,extended 250 mg PO BID 06/26/22 Unknown History release 24 hr nitroglycerin 0.4 mg sublingual 0.4 mg sublingual Q5-15M PRN chest 08/03/22 Unknown Rx tablet pain #25 tabs metoprolol succinate 25 mg 12.5 mg (1/2 x 25 mg) PO DAILY #15 02/21/24 Unknown Rx tablet,extended release 24 hr TABLETS Allergy/AdvReac Type Severity Reaction Status Date / Time No Known Allergies Allergy Verified 06/21/24 19:17 Family History Father CVA (cerebral vascular accident) Cancer Heart disease Brain aneurysm COPD (chronic obstructive pulmonary disease) Mother Myocardial infarction Heart disease Hypertension Other Cardiovascular disease Surgical History History of arthroscopic knee surgery Presence of coronary angioplasty implant and graft (~05/18/19) Social History Smoking Status: Current every day smoker tobacco type: cigarettes alcohol intake: current alcohol intake frequency: a few times a month substance use type: does not use caffeine: Yes Type: coffee Number of servings: 4 what type of physical activity do you participate in: walking ROS ROS ED ROS Narrative Constitutional: Complains of headache denies any fevers, chills, lightheadedness or dizziness Eyes: Denies change in vision double vision blurry vision Cardiovascular: Denies chest pain or palpitations currently Respiratory: Denies coughing wheezing shortness of breath Abdomen: Denies abdominal pain nausea vomit diarrhea : Denies any urinary symptoms Neurological: Denies any numbness, weakness, tingling Musculoskeletal: Denies back pain Skin: Denies rashes or lesions EXAM Physical Exam Narrative Exam Narrative: General: Patient lying in bed rest comfortably did not appear to be in acute distress Head: Atraumatic, normocephalic Eyes: PERRL bilateral, EOMI bilateral, no conjunctival injection noted Neck: Soft, supple, trachea midline Cardiovascular: Regular rate and rhythm no murmurs gallops rubs noted Respiratory: Clear to auscultation bilaterally Abdomen: Soft, nondistended, nontender to palpation no pulsatile masses felt Extremities: +5/5 strength noted in the bilateral upper and lower extremities, radial pulses +2/4 in the bilateral extremities, no pedal edema on exam Neurological: Patient following commands knew he was at [facility] year is 2024 Skin: Warm, dry, intact Const Vital Signs: 06/21/24 19:13 06/21/24 19:32 06/21/24 20:08 Temperature 96.9 F L Temperature Source Temporal Pulse Rate 78 66 Respiratory Rate 16 15 Blood Pressure 168/75 H Blood Pressure Mean 106 Pulse Ox 100 96 Oxygen Delivery Method Room Air Room Air 06/21/24 20:15 06/21/24 20:30 06/21/24 20:45 Temperature Temperature Source Pulse Rate 65 64 59 L Respiratory Rate 16 14 16 Blood Pressure 140/64 H 137/72 H 133/71 H Blood Pressure Mean 85 87 88 Pulse Ox 95 97 96 Oxygen Delivery Method 06/21/24 21:00 06/21/24 21:00 06/21/24 21:15 Temperature Temperature Source Pulse Rate 61 62 61 Respiratory Rate 17 15 10 L Blood Pressure 135/68 H 135/68 H 137/78 H Blood Pressure Mean 90 88 93 Pulse Ox 98 97 98 Oxygen Delivery Method Room Air 06/21/24 21:30 06/21/24 21:45 06/21/24 22:00 Temperature Temperature Source Pulse Rate 62 61 62 Respiratory Rate 14 10 L 16 Blood Pressure 132/76 H 138/73 H Blood Pressure Mean 94 94 Pulse Ox 98 98 98 Oxygen Delivery Method MDM MDM MDM Narrative Medical decision making narrative: Patient is a 54-year-old male who presented to the emerged part with chief complaint of chest pain. On the differential diagnose includes Melamin to ACS, pneumonia, stable angina, hypertensive emergency. Once workup is obtained reviewed he will be reevaluated. Patient be given Tylenol for his headache. Patient CBC was reviewed showed no evidence of leukocytosis white blood count normal 8.9, hemoglobin 14.8, plate count normal at 230. Patient sodium normal 137, potassium normal at 4, creatinine normal at 0.82. Patient's troponin was normal at 8 with a delta troponin obtained normal at 5, EKG reviewed showed no rmal sinus rhythm rate of 75 bpm. Patient's proBNP normal at 10.1. Patient chest x-ray reviewed by myself and by radiology showed no acute cardiopulmonary processes. Reevaluation the patient he states that he is feeling better. Called and discussed case with on-call senior [employer] network engineer Dr. Quiroga who is recommending increasing his lisinopril from 5 mg to 10 mg and following up with Dr. Souza in the outpatient setting for stress test. I discussed the plan with the patient he is agreeable this plan he would like to go home at this point time he was encouraged return with worsening symptoms or other concerns. All question concerns answered he was discharged home in stable condition. His repeat blood pressure in the emergency department was 138/73. Lab Data Labs: Laboratory Results - last 24 hr 06/21/24 06/21/24 19:31 21:35 WBC 8.9 RBC 5.05 Hgb 14.8 Hct 44.8 MCV 88.7 MCH 29.3 MCHC 33.0 RDW Std Deviation 41.9 RDW Coeff of Graham 12.9 Plt Count 230 MPV 10.6 Immature Gran % (Auto) 0.200 Neut % (Auto) 50.2 Lymph % (Auto) 34.8 [place] % (Auto) 9.5 Eos % (Auto) 4.6 Baso % (Auto) 0.7 Absolute Neuts (auto) 4.5 Absolute Lymphs (auto) 3.08 Nucleated RBC % 0 Sodium 137 Potassium 4.0 Chloride 105 Carbon Dioxide 27.0 Anion Gap 5 BUN 15 Creatinine 0.82 Estim Creat Clear Calc 135.47 Est GFR (MDRD) Af Amer 126 Est GFR (MDRD) Non-Af 104 BUN/Creatinine Ratio 18.3 Glucose 185 H Calcium 9.3 Troponin I High Sens 8 5 B-Natriuretic Peptide 10.1 Radiography Diagnostic Testing: Clinical Impression(s) from Imaging Studies Chest X-Ray 06/21/24 19:40 IMPRESSION: No acute cardiopulmonary pathology. Electronically Signed: Guy Coyle MD at 19:54 EST Reading Location ID and State: [facility] / [place] Tel , Service support , Discharge Plan Triage Chief Complaint: Chest Pain ED Provider: Kapil Joseph Dx/Rx/DC Orders Clinical Impression: Chest pain, Hypertension Prescriptions: No Action lisinopril 5 mg tablet 5 mg PO DAILY Qty: 30 6RF glipizide 5 mg tablet extended release 24hr 5 mg PO DAILY Qty: 90 1RF metformin 500 mg tablet extended release 24 hr 250 mg PO BID atorvastatin 80 MG tablet 80 mg PO QHS aspirin 81 MG tablet,delayed release (DR/EC) 81 mg PO DAILY clopidogrel 75 mg tablet 75 mg PO DAILY Qty: 90 3RF nitroglycerin 0.4 mg tablet, sublingual 0.4 mg SUBLINGUAL Q5-15M PRN (Reason: chest pain) Qty: 25 1RF Rx Instructions: do not exceed 3 doses per episode metoprolol succinate 25 mg tablet extended release 24 hr 12.5 mg PO DAILY Qty: 15 11RF Stand Alone Forms: Work Status Form, Work / School Excuse Primary Care Provider: Tonya Berry Referrals: Tonya Berry, [facility] [Primary Care Provider] - Activity Restrictions/Additional Instructions: Increase your lisinopril dose from 5 mg to 10 mg daily. Follow-up with Dr. Souza call his office for a appointment for a stress test. Return with worsening symptoms or other concerns. You may return to work tomorrow. Follow- up your primary care physician as well. Print Language: Icelandic Disposition Disposition: Home, Self Care
[2024-06-21 21:35] LABS: Reflex Troponin-HS? (from REC) Y
[2024-06-21 22:12] LABS: BNP,B-Type NATRIURETIC PEPTIDE 10.1 pg/mL (0-100)
[2024-06-21 22:12] LABS: Troponin-I HS 5 pg/mL (3.0-78.0)
== END 2024-06-21 22:38 | disposition home or self-care (01) ==
PROVIDERS: Emergency Provider Emergency Medicine; PCP Nurse Practitioner Family; Referring Provider Emergency Medicine; Visit Provider Emergency Medicine
DX: R07.9 Chest pain, unspecified (principal); E11.9 Type 2 diabetes mellitus without complications; I25.10 Atherosclerotic heart disease of native coronary artery without angina pectoris; I10 Essential (primary) hypertension; E78.2 Mixed hyperlipidemia; G47.33 Obstructive sleep apnea (adult) (pediatric); F17.210 Nicotine dependence, cigarettes, uncomplicated; I25.2 Old myocardial infarction; Z79.82 Long term (current) use of aspirin; Z79.02 Long term (current) use of antithrombotics/antiplatelets; Z79.84 Long term (current) use of oral hypoglycemic drugs; Z95.5 Presence of coronary angioplasty implant and graft
CPT/HCPCS: 71046; 80048; 83880; 84484; 85025; 93005; 99283; A4216

== ENCOUNTER → 2025-02-02 | Outpatient (CLI) | payer OTHER, SELFPAY ==
[2019-10-06 13:21] VITALS: BMI 35.2
--- OUTSIDE RECORDS SUMMARY | 2025-02-02 06:49 | XMS RPT_ITS | CCD ---
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 Prado Attending Provider [place] Referring Un[place] Primary Care Unavailable Huy Recinos Attending Unavailable Cleo Berry Referring Unavailable Cleo Berry Primary Care Unavailable Johan Souza Attending Unavailable Kapil Joseph Attending Unavailable Cleo Berry Primary Care Unavailable Kapil Joseph Referring Unavailable MAY PANCHAL Attending Unavailable CLEO BERRY Primary Care Unavailable Medications Current Medications Medication Drug Class(es) Dates Sig (Normalized) Sig (Original) acetaminophen 325 mg oral tablet (1 source) Start: 05-18-2019 take 650 mg by mouth every four hours as needed for pain, then take 4000 mg by mouth every twenty-four hours as needed for pain 650 mg, Oral, EVERY 4 HOURS PRN, Pain Mild (1-3), Fever, Fever >100.5 F (38 C), Starting [facility] 05/18/19 at 2050 Maximum dose of acetaminophen is 4000 mg from all sources in 24 hours. Recovery(Cath) carvedilol 12.5 mg oral tablet (2 sources) alpha-Adrenergic Livan, beta-Adrenergic Livan Start: 05-19-2019 carvedilol (COREG) tablet 12.5 mg Start: 05-18-2019 End: 05-19-2019 carvedilol (COREG) tablet 6. 25 mg clopidogrel 75 mg oral tablet (11 sources) P2Y12 Platelet Inhibitor Start: 07-25-2019 End: 11-03-2024 take 1 tablet by mouth once daily Clopidogrel 75 mg tablet Active 75 mg PO DAILY 90 November 03, 2024 10:05am Anti-platelet glucagon (rdna) 1 mg injection (1 source) Antihypoglycemic Agent Start: 05-18-2019 glucagon (rDNA) injection 1 mg 150 ml glucose 50 mg/ml injection (3 sources) Start: 05-18-2019 glucose (GLUTOSE) 40 % oral gel 15 g Start: 05-18-2019 dextrose 50 % IV solution Start: 05-18-2019 dextrose 5 % s olution 1 ml heparin sodium, porcine 5000 unt/ml prefilled syringe (1 source) Unfractionated Heparin, Anti-coagulant Start: 05-19-2019 heparin (porcine) injection 5,000 Units insulin lispro 100 unt/ml injectable solution (2 sources) Insulin Analog Start: 05-18-2019 End: 05-19-2019 insulin lispro (HUMALOG) injection vial 0-6 Units lisinopril 10 mg oral tablet (15 sources) Angiotensin Converting Enzyme Inhibitor Start: 12-18-2024 take 1 tablet by mouth once daily Lisinopril 10 mg tablet Active 10 mg PO daily December 18, 2024 12:00am Start: 02-05-2020 End: 12-18-2024 take 1 tablet by mouth once daily Lisinopril 5 mg tablet Discontinued 5 mg PO DAILY 30 February 06, 2020 4:28pm December 18, 2024 12:56pm Start: 07-25-2019 End: 02-05-2020 take 5 mg by mouth once daily Lisinopril 10 MG tablet Discontinued 5 mg PO DAILY July 25, 2019 1:00am February 05, 2020 4:18pm bp Start: 07-25-2019 End: 02-05-2020 take 5 mg by mouth once daily Lisinopril Discontinued 5 MG PO DAILY July 25, 2019 12:00am February 05, 2020 3:18pm Start: 05-21-2019 take 1 tablet by david th once daily lisinopril (PRINIVIL;ZESTRIL) 40 MG tablet Take 1 tablet by mouth daily 30 tablet 5 05/21/2019 Active Start: 05-20-2019 lisinopril (ND INIVIL;ZESTRIL) tablet 40 mg Start: 05-19-2019 End: 05-19-2019 lisinopril (PRINIVIL;ZESTRIL ) tablet 5 mg Start: 03-04-2019 End: 05-20-2019 lisinopril (PRINIVIL;ZESTRIL ) 2.5 MG tablet Take 2.5 mg by mouth 0 03/04/2019 05/20/2019 Discontinued (Stop Taking at Discharge) magnesium hydroxide 80 mg/ml oral suspension (1 source) Start: 05-18-2019 take 30 mL by mouth once daily as needed for constipation 30 mL, Oral, DAILY PRN, Constipation, Starting [facility]ie 05/18/19 at 0, Recovery(Cath) 24 hr metoprolol succinate 25 mg extended release oral tablet (14 sources) beta-Adrenergi c Livan Start: 12-12-2024 take 2 tablets by mouth once daily Metoprolol Succinate 25 mg tablet extended release 24 hr Active 12.5 mg PO DAILY 45 December 12, 2024 9:25am Start: 02-21-2024 End: 12-12-2024 take 2 tablets by mouth once daily Metoprolol Succinate 25 mg tablet extended release 24 hr Discontinued 12.5 mg PO DAILY 15 February 21, 2024 1:28pm December 12, 2024 9:27am Start: 12-27-2020 End: 02-21-2024 take 2 tablets by mouth once daily Metoprolol Succinate 25 mg tablet extended release 24 hr Discontinued 12.5 mg PO DAILY 45 3 February 15, 2023 10:15am February 21, 2024 1:28pm Start: 12-27-2020 End: 02-15-2023 take 12.5 mg by mouth once daily Metoprolol Succinate Active 12.5 MG PO DAILY 45 February 15, 2023 9:15am Start: 12-26-2020 End: 12-27-2020 take 1 tablet by mouth once daily Metoprolol Succinate 25 mg tablet extended release 24 hr Discontinued 25 mg PO DAILY 30 December 26, 2020 12:00am December 27, 2020 1:39pm Start: 05-20-2019 take 1 tablet by [facility] twice daily metoprolol tartrate (LOPRESSOR) 25 MG tablet Take 1 tablet by mouth 2 times daily 60 tablet 0 05/20/2019 Active Start: 03-08-2019 End: 05-20-2019 take 0.5 tablet by mouth twice daily metoprolol tartrate (LOPRESSOR) 25 MG tablet Take 0.5 tablets by mouth 2 times daily 60 tablet 0 03/08/2019 05/20/2019 Discontinued (REORDER) nitroglycerin 0.4 mg sublingual tablet (9 sources) Nitrate Vasodilator Start: 03-14-2021 End: 08-03-2022 Nitroglycerin 0.4 mg tablet, sublingual Active 0.4 mg SL every 5 to 15 minutes as needed for chest pain 01 07August 03, 2022 4:38pm do not exceed 3 doses per episode Start: 03-14-2021 End: 08-03-2022 Nitroglycerin Active 0.4 MG SL every 5 to 15 minutes August 03, 2022 3:38pm do not exceed 3 doses per episode Start: 02-06-2020 End: 03-14-2021 Nitroglycerin 0.4 mg tablet, sublingual Discontinued 0.4 mg SL Q5M as needed for chest pain February 06, 2020 12:00am March 14, 2021 10:04am do not exceed 3 doses per episode Start: 02-06-2020 End: 03-14-2021 Nitroglycerin Discontinued 0 .4 MG SL Q5M February 05, 2020 11:00pm March 14, 2021 9:04am do not exceed 3 doses per episode Start: 05-19-2019 End: 05-19-2019 nitroGLYCERIN 50 mg in dextr ose 5% 250 mL infusion 2 ml ondansetron 2 mg/ml injection (1 source) Serotonin-3 Receptor Antagonist Start: 05-18-2019 4 mg, Intravenous, EVERY 6 HOURS PRN, Nausea, Vomiting, Starting [facility] 05/18/19 at 2050, Recovery(Cath) Semaglutide (1 source) Start: 12-18-2024 Semaglutide (Ozempic) 0.25 mg or 0.5 mg (2 mg/3 mL) pen injector Active 0.25 mg SC EVERY WEEK December 18, 2024 12:00am ticagrelor 90 mg oral tablet (2 sources) Start: 05-19-2019 take 1 tablet by mouth twice daily ticagrelor (BRILINTA) 90 MG TABS tablet Take 1 tablet by mouth 2 times daily 60 tablet 0 05/20/2019 Active Completed/Discontinued Medications Medication Drug Class(es) Dates Sig (Normalized) Sig (Original) [id number] actuat albuterol 0.09 mg/actuat metered dose inhaler (6 sources) beta2-Adrenergic Agonist Start: 07-04-2021 End: 06-21-2024 Albuterol Sulfate 90 mcg/actuation HFA aerosol inhaler Discontinued 2 NMA INHALATION Q4H as needed July 04, 2021 1:00am June 21, 2024 8:27pm Start: 07-04-2021 take 1 puff(s) by in halation every four hours Albuterol Sulfate Active 2 PUFF INHALATION Q4H July 04, 2021 12:00am Start: 11-28-2019 End: 04-10-2020 Albuterol Sulfate 1 PUFF inh aler Discontinued 1 - 2 NMA INHALATION EVERY 6 HOURS NEEDED as needed for Sob &/Or Wheezing November 28, 2019 12:00am April 10, 2020 1:58pm Start: 11-28-2019 End: 04-10-2020 take 1 puff(s) by inhalation every six hours as needed Albuterol Sulfate Discontinued 1 - 2 PUFF INHALATION EVERY 6 HOURS NEEDED November 27, 2019 11:00pm April 10, 2020 12:58pm amoxicillin 500 mg oral capsule (3 sources) Penicillin-class Antibacterial Start: 06-18-2021 End: 06-28-2021 take 2 capsules by mouth twice daily Amoxicillin 500 mg capsule Discontinued 1000 mg PO TWICE A DAY 40 10 0 June 18, 2021 1:00am June 27, 2021 1:00am June 28, 2021 1:01am Start: 06-18-2021 End: 06-28-2021 take 1000 mg by mouth twice daily Amoxicillin Discontinued 1000 MG PO TWICE A DAY 40 10 June 18, 2021 12:00am June 28, 2021 12:01am ASPIRIN TABS (7 sources) Platelet Aggregation Inhibitor, Nonsteroidal Anti-inflammatory Drug Start: 02-05-2020 AROLDO ASPIRIN TAB S 1 tablet daily ASPIRIN TABS [id number] Patti Langley PA-C Start: 07-25-2019 take 1 tablet by david th once daily Aspirin 81 MG tablet,delayed release (DR/EC) Active 81 mg PO DAILY July 25, 2019 1:00am heart health Start: 03-03-2019 End: 05-20-2019 take 1 tablet by mouth once daily EQ ASPIRIN ADULT LOW DOSE 81 MG EC tablet TAKE 1 TABLET BY MOUTH ONCE DAILY 30 tablet 5 05/20/2019 Active atorvastatin 80 mg oral tablet (8 sources) HMG-CoA Reductase Inhibitor Start: 02-05-2020 ATORVASTATIN CALCIUM 80 MG TABS 1 tablet daily ATORVASTATIN CALCIUM [id number] Patti Langley PA-C Start: 07-25-2019 take 1 tablet by david th at bedtime Atorvastatin 80 MG tablet Active 80 mg PO AT BEDTIME July 25, 2019 1:00am cholesterol Start: 05-19-2019 atorvastatin ( LIPITOR) tablet 80 mg Start: 03-03-2019 End: 05-20-2019 take 40 mg by mouth once daily 40 mg, Oral, NIGHTLY, F irst dose on [facility] 05/18/19 at 2115 baclofen 10 mg oral tablet (4 sources) gamma-Aminobutyric Acid-ergic Agonist Start: 02-05-2020 End: 04-10-2020 take 1 tablet by mouth three times daily as needed Baclofen 10 mg tablet Discontinued 10 mg PO THREE TIMES A DAY as needed February 06, 2020 12:00am April 10, 2020 1:58pm doxycycline monohydrate 100 mg oral capsule (1 source) Tetracycline-class Drug Start: 05-16-2024 End: 06-21-2024 take 1 capsule by mouth twice daily Doxycycline Monohydrate 100 mg capsule Discontinued 100 mg PO TWICE A DAY 20 May 16, 2024 1:00am June 21, 2024 8:27pm glipiZIDE er 5 mg 24 hr extended release oral tablet (14 sources) Sulfonylurea Start: 01-19-2022 End: 12-18-2024 take 1 tablet by mouth once daily Glipizide 5 mg tablet extended release 24hr Discontinued 5 mg PO DAILY January 19, 2022 8:47am December 18, 2024 12:56pm Diabetes Start: 02-05-2020 GLIPIZIDE 5 MG TABS 1/2 tablet daily GLIPIZIDE [id number] Patti Langley PA-C Start: 07-25-2019 End: 01-19-2022 take 1 tablet by mouth once daily Glipizide 2.5 mg tablet extended release 24hr Discontinued 2.5 mg PO DAILY 90 1 June 11, 2020 11:15am January 19, 2022 8:48am dm Start: 03-03-2019 End: 05-20-2019 take 1 tablet by mouth once daily glipiZIDE (GLUCOTROL) 5 MG tablet Take 1 tablet by mouth daily 30 tablet 5 05/20/2019 Active 24 hr metFORMIN hydrochloride 500 mg extended release oral tablet (17 sources) Biguanide Start: 06-26-2022 End: 12-18-2024 take 2 tablets by mouth twice daily Metformin 500 mg tablet extended release 24 hr Discontinued 250 mg PO TWICE A DAY June 26, 2022 3:04pm December 18, 2024 12:56pm Start: 07-04-2021 End: 07-21-2021 take 2 tablets by mouth twice daily Metformin 500 mg tablet extended release 24 hr Discontinued 250 mg PO TWICE A DAY July 04, 2021 1:00am July 21, 2021 10:01am Start: 07-04-2021 End: 06-26-2022 take 1 tablet by mouth twice daily, then take 2 tablets by mouth twice daily Metformin 500 mg tablet extended release 24 hr Discontinued 0 PO TWICE A DAY July 21, 2021 9:59am June 26, 2022 3:04pm Take 250 mg each morning and 500 mg at supper PO twice a day; Start: 11-05-2020 End: 07-04-2021 Metformin 500 mg tablet Discontinued 250 mg PO THREE TIMES A DAY November 05, 2020 2:52pm July 04, 2021 11:13am diabetes Start: 11-05-2020 End: 07-04-2021 take 250 mg by mouth three times daily Metformin Discontinued 250 MG PO THREE TIMES A DAY November 05, 2020 1:52pm July 04, 2021 10:13am Start: 02-05-2020 METFORMIN HCL 500 MG TABS 1/2 tablet two times daily METFORMIN HCL [id number] Patti Langley PA-C Start: 07-25-2019 End: 11-05-2020 Metformin 500 MG tablet Discontinued 250 mg PO TWICE A DAY July 25, 2019 1:00am November 05, 2020 2:53pm diabetes Start: 07-25-2019 End: 11-05-2020 take 250 mg by mouth twice daily Metformin Discontinue d 250 MG PO TWICE A DAY July 25, 2019 12:00am November 05, 2020 1:53pm Start: 03-08-2019 End: 05-20-2019 take 0.5 tablet by mouth twice daily at mealtime metFORMIN (GLUCOPHAGE) 1000 MG tablet Take 0.5 tablets by mouth 2 times daily (with meals) 60 tablet 2 05/20/2019 Active perflutren lipid microsphere s (DEFINITY) injection 1.65 mg (1 source) Start: 05-19-2019 End: 05-19-2019 perflutren lipid microsphere s (DEFINITY) injection 1.65 mg microencapsulated potassium chloride 10 meq extended release oral tablet (1 source) Start: 05-19-2019 End: 05-19-2019 potassium chloride (KLOR-CON M) extended release tablet 20 mEq 3 ml sodium chloride 9 mg/ml injection (1 source) Start: 05-18-2019 End: 05-19-2019 10 mL, Intravenous, EVERY 12 HOURS SCHEDULED (2 times per day), First dose on [facility] 05/18/19 at 2115, Recovery(Cath) Problems Active Problems Problem Classification Problem Date Documented Date Episodic/Chronic Acute myocardial infarction (5 sources) Myocardial infarction; Translations: [Acute myocardial infarction, unspecified] Onset: 05-18-2019 Resolved: 05-20-2019 Chronic Anxiety disorders (3 sources) Anxiety; Translations: [Anxiety disorder, unspecified] 07-04-2021 Chronic Cardiac dysrhythmias (3 sources) Paroxysmal ventricular tachycardia; Translations: [Ventricular tachycardia] 01-12-2022 Chronic Cardiac dysrhythmias (3 sources) Palpitations; Translations: [Palpitations] 11-05-2020 Episodic Coronary atherosclerosis and other heart disease (8 sources) Coronary arteriosclerosis in [place] artery; Translations: [Old myocardial infarction] Onset: 05-19-2019 Chronic Diabetes mellitus without complication (5 sources) Type 2 diabetes mellitus without complication; Translations: [Diabetes mellitus] Chronic Diabetes mellitus without complication (2 sources) Hyperglycemia; Translations: [Hyperglycemia, unspecified] 06-27-2023 Episodic Disorders of lipid metabolism (3 sources) Mixed hyperlipidemia; Translations: [Mixed hyperlipidemia] 07-09-2020 Chronic Essential hypertension (9 sources) Essential hypertension; Translations: [Essential (primary) hypertension] Onset: 03-02-2019 Chronic Malaise and fatigue (2 sources) Malaise; Translations: [Other malaise] 06-27-2023 Episodic Other eye disorders (1 source) Other specified disorders of cornea, right eye; Translations: [Corneal irritation of right eye] Onset: 01-19-2025 Episodic Other nutritional; endocrine; and metabolic disorders (2 sources) Obese class I Onset: 03-02-2019 Chronic Other upper respiratory infections (3 sources) Sinusitis; Translations: [Chronic sinusitis, unspecified] 09-05-2019 Chronic Other upper respiratory infections (3 sources) Acute maxillary sinusitis; Translations: [Acute maxillary sinusitis, unspecified] 06-18-2021 Episodic Peripheral and visceral atherosclerosis (3 sources) Intermittent claudication; Translations: [Peripheral vascular disease, unspecified] 07-09-2020 Chronic Residual codes; unclassified (3 sources) Obstructive sleep apnea syndrome; Translations: [Obstructive sleep apnea (adult) (pediatric)] 07-09-2020 Chronic Skin and subcutaneous tissue infections (1 source) Cellulitis of right forearm; Translations: [Cellulitis of right upper limb] 05-16-2024 Episodic Spondylosis; intervertebral disc disorders; other back problems [...] Classification Problem Date Documented Da te Episodic/Chronic Coronary atherosclerosis and other heart disease (3 sources) Stented coronary artery; Translations: [Presence of coronary angioplasty implant and graft] Onset: 05-07-2019 07-09-2020 Episodic Comment on above: PCI/ANJEL to mid CX @ [facility] 05/18/19 Nonspecific chest pain (13 sources) Chest pain; Translations: [Chest pain, unspecified] Onset: 07-11-2024 11-29-2019 Episodic Unclassified (1 source) Problem Results Test Name Value Interpretation Reference Range Facility ED NOTEon 01-19-2025 ED NOTE HNO ID: [id number] Author: LIZBETH WATKINS, RN Service: Nursing Author Type: Registered Nurse Type: ED Notes Filed: 01/19/2025 11:17 Note Text: Pt verbalizes understanding of discharge instructions. Pt able to ambulate out of ED. Normal 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 ED PROV NOTEon 01-19-2025 ED PROV NOTE HNO ID: [id number] Author: MAY PANCHAL MD Service: Emergency Medicine Author Type: Physician Type: ED Provider Notes Filed: 01/19/2025 11:13 Note Text: ED Provider Note Patient Name: Sumi Amado : 1970 SERVICE DATE: 01/19/25 History Patient presents with: Eye Complaint Sumi Amado is a 54 year old male with history of multiple chronic medical problems who presents with Eye Complaint. Patient took nothing for this prior to arrival. - Symptoms began this morning. 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 - Eye Complaint is exacerbated by blinking. - Eye Complaint is not exacerbated by rest. - Symptoms are associated with nothing. - Symptoms are not associated with any other injury. - Improved by nothing. - Not improved by flushing eye While at work patient had a glass fish tank in a recycling bin that broke as it hit the ground shooting some glass up towards his face he did have safety glasses on but he did find some glass underneath the safety glasses and he felt foreign body sensation and irritation since that time. He washed his face rinsed his eye and still feels like there might be something in it and presents to the emergency department. He is diabetic does not wear contact lenses.. PAST MEDICAL HISTORY Diagnosis Date Diabetes (HCC) Heart attack (HCC) Hypertension Sinusitis PAST SURGICAL HISTORY Procedure Laterality Date CARDIAC CATHETERIZATION HX NONE FAMILY HISTORY Problem Relation Age of Onset Heart disease Mother Heart disease Father other (lung cancer) Father Social History[1] ALLERGIES No Known Allergies Review of Systems Constitutional: Negative for chills and fever. Eyes: Positive for pain and redness. Negative for discharge, itching and visual disturbance. Gastrointestinal: Negative for nausea and vomiting. Allergic/Immunologic: Negative for environmental allergies, food allergies and immunocompromised state. Physical Exam Vitals [01/19/25 1016] BP Pulse Temp Temp src Resp SpO2 Weight Height 138/79 83 37.1 ?C (98.8 ?F) -- 16 98 % 113.4 kg (250 lb) -- Physical Exam Constitutional: General: He is not in acute distress. Appearance: Normal appearance. He is not ill-appearing, toxic-appearing or diaphoretic. HENT: Head: Normocephalic and atraumatic. Nose: No congestion or rhinorrhea. Eyes: General: Right eye: No discharge. Left eye: No discharge. Extraocular Movements: Extraocular movements intact. Conjunctiva/sclera: Conjunctivae normal. Pupils: Pupils are equal, round, and reactive to light. Comments: Conjunctival and scleral injection Skin: General: Skin is warm and dry. Capillary Refill: Capillary refill takes less than 2 seconds. Findings: No rash. Neurological: General: No focal deficit present. Mental Status: He is alert and oriented to person, place, and time. Psychiatric: Mood and Affect: Mood normal. Behavior: Behavior normal. Thought Content: Thought content normal. Judgment: Judgment normal. Diagnostic Testing ED Labs Ordered and Reviewed - No data to display Procedures ED Course / Clinical Impression Clinical Impressions as of 01/19/25 1106 Corneal irritation of right eye MDM / Disposition / Plan Visual acuities are within normal patient wears glasses. Evaluation of the right eye showed lids without any traumatic injuries patient washed his face prior to coming emergency department I saw no glass particles on the face. Eversion of the lids showed no foreign bodies. Eye examination with fluorescein Wood's lamp and slit lamp showed no acute abrasions or foreign body present. The eye is injected we placed erythromycin ointment and it to give it some protection on the injection could be secondary to his flushing the eye he still does feel foreign body sensation I do not see any definite abrasions I discussed with him there could be a foreign body and just not seeing for his discomfort could be secondary to the corneal irritation. Recommended an ophthalmology follow-up in the next couple of days if he does worsen he is to return to the emergency department over the weekend. If this is a corneal irritation should improve pretty quickly. No indication for transfer or admission. This is a work-related injury. Differential Diagnoses - Corneal irritation is more likely for the following reason(s): suggested by HANDP - Corneal abrasion is less likely for the following reason(s): No evidence on fluorescein exam Management Meds Given During Visit ED Medication Administration from 01/19/2025 1015 to 01/19/2025 1113 Date/Time Order Dose Route Action 01/19/2025 1031 EDT fluorescein 1 mg 1 strip (FLUORETS) 1 strip RIGHT EYE Given by LIP 01/19/2025 1031 EDT tetracaine (PF) 0.5 % 1 drop (OPTICAINE) 1 drop RIGHT EYE Given by LIP (more content not included)... Normal [facility] Cardiology Visit Reporton Cardiology Visit Report [facility] [address] [place] [address] OFFICE VISIT Date of Service: 12/18/24 MR#: [id number] Acct: [id number] Name: SUMI AMADO Rep #: [id number] : 1970 Provider: Dr. Johan dodson MD Age/Sex: 54/M Location: [facility] Status: Signed HPI HPI History of Present Illness Details: Patient is a very pleasant 54-year-old white male who comes today for monitor of his cardiovascular status. Patient carries a history of known coronary disease status post remote stenting of the circumflex back in 2019 at [facility]. At that time he presented with a sharp chest discomfort that radiated through from his mid retrosternal area into the mid chest and was associated with some residual achiness. The patient was seen in the emergency department June 21, 2024 with what he described as a panic attack. He was having significant family issues and presented there with a chest pressure that was totally different than the symptoms he had with his infarct. He has had no recurrence of either 1 of those symptoms. The patient's lipids are well-controlled his blood pressure is well-controlled he is diabetic and he has lost 19 pounds since December 2023. He has done this by dietary modification, exercise, and Ozempic. His hemoglobin A1c is dropped from 7.8 down to 6 point something. The patient does continue to smoke but his other risk factors are well-controlled. The patient is aerobically active he denies any PND orthopnea denies any significant symptoms at all. Intake Vital Signs 06/21/24 19:13 12/18/24 12:54 Height 6 ft 6 ft Weight: 240 lb BMI 32.5 BP 114/72 Blood Pressure Location Lt brachial Position Sitting Respiration 18 Pulse 67 Pulse Source Monitor Pulse Oximetry (%) 95 Oxygen Delivery Method room air Intake Visit Reasons: 1 Y FU Conference Planner Required: No Accompanied by: Self Is patient in pain?: No Allergies No Known Allergies Allergy (Verified 12/18/24 12:54) Medications ???Medication ???Instructions ???Recorded ???Confirmed ???Type aspirin 81 mg tablet,delayed 81 mg PO DAILY heart health 12/18/24 History release atorvastatin 80 mg tablet 80 mg PO QHS cholesterol 07/25/19 12/18/24 History nitroglycerin 0.4 mg sublingual 0.4 mg sublingual Q5-15M PRN chest 08/03/22 12/18/24 Rx tablet pain #25 tabs clopidogrel 75 mg tablet 75 mg PO DAILY Anti-platelet #90 0 11/03/24 12/18/24 Rx tabs metoprolol succinate 25 mg 12.5 mg (1/2 x 25 mg) PO DAILY #45 12/12/24 12/18/24 Rx tablet,extended release 24 hr TABLETS lisinopril 10 mg tablet 10 mg PO QDAY 12/18/24 12/18/24 Hi story semaglutide 0.25 mg or 0.5 mg (2 0.25 mg subcut QWEEK 12/18/2412/05 History mg/3 mL) subcutaneous pen injector (Ozempic) Ejection fraction %: 60 Have you fallen in the past year?: No [facility] Medical History Cellulitis of right forearm Acute maxillary sinusitis, unspecified Paroxysmal ventricular tachycardia Hypertension Claudication of both lower extremities Mixed hyperlipidemia ALEXEI on CPAP Old myocardial infarction Atherosclerotic heart disease of [place] coronary artery without angina pectoris Presence of stent in coronary artery ( 05/18/19) Essential hypertension Diabetes Myocardial infarction Surgical History History of arthroscopic knee surgery Presence of coronary angioplasty implant and graft ( 05/18/19) Family History Father CVA (cerebral vascular accident) Cancer Heart disease Brain aneurysm COPD (chronic obstructive pulmonary disease) Mother Myocardial infarction Heart disease Hypertension Other Cardiovascular disease Social History Smoking Status: Current every day smoker tobacco type: cigarettes alcohol intake: current alcohol intake frequency: a few times a month substance use type: does not use caffeine: Yes Type: coffee Number of servings: 4 what type of physical activity do you participate in: walking ROS Const Const: Negative for fatigue or weakness ENT ENT: Negative for dizziness or balance problems Cardio Chest Pain: No Palpitations: No Edema: None Muscle aches with walking: None Resp Respiratory: Negative for SOB with activity, SOB at rest or SOB orthopnea SOB lying down GI GI: Negative nausea, vomiting or heartburn Musc Musc: Negative for muscle weakness or balance problems Neuro Neuro: Negative for dizziness, lightheadedness, near syncope, syncope or weakness Endo Endo: Negative for fatigue Cardiology Exam Const Appearance: cooperative, (more content not included)... Normal [facility] BNP,B-Type NATRIURETIC PEPTI [place] 06-21-2024 Natriuretic peptide B (Bld) [Mass/Vol] 10.1 pg/mL Normal 0-100 [facility] Comment on above: Performed By: #### L 503.6671 #### [facility] [address] [place], [address] Basic Metabolic Profile (BMP )on 06-21-2024 BUN/CRE 18.3 RATIO Normal 10-20 [facility] Comment on above: Order Comment: 1 Y Performed By: #### L 501.5425, L500.2500, L100.0100 #### [facility] [address] [place], [address] CA,Total 9.3 mg/dL Normal 8.5-10.1 [facility] Comment on above: Order Comment: 1 Y Performed By: #### L 501.5425, L500.2500, L100.0100 #### [facility] [address] [place], [address] Chloride [Moles/Vol] 105 mmol/L Normal 98-107 [facility] Comment on above: Order Comment: 1 Y Performed By: #### L 501.5425, L500.2500, L100.0100 #### [facility] [address] [place], [address] CO2 [Moles/Vol] 27.0 mmol/L Normal 21.0-32.0 [facility] Comment on above: Order Comment: 1 Y Performed By: #### L 501.5425, L500.2500, L100.0100 #### [facility] [address] [place], [address] Creatinine [Mass/Vol] 0.82 mg/dL Normal 0.70-1.30 [facility] Comment on above: Order Comment: 1 Y Result Comment: The validity of the calculated GFR GFRAA in patients over 70 years has not been determined. Clinical correlation is essential. Performed By: #### L 501.5425, L500.2500, L100.0100 #### [facility] [address] [place], [address] ECRCL 135.47 ml/min Normal [facility] Comment on above: Order Comment: 1 Y Performed By: #### L 501.5425, L500.2500, L100.0100 #### [facility] [address] [place], [address] EST GFR - AA 126 mL/min Normal >60 [facility] Comment on above: Order Comment: 1 Y Result Comment: Afri can [place] GFR Calc Performed By: #### L 501.5425, L500.2500, L100.0100 #### [facility] [address] [place], [address] GAP 5 Normal 5-15 [facility] Comment on above: Order Comment: 1 Y Performed By: #### L 501.5425, L500.2500, L100.0100 #### [facility] [address] [place], [address] GFR/1.73 sq M.predicted among non-blacks MDRD (S/P/Bld) [Vol rate/Area] 104 mL/min/{1.73_m2} Normal >60 [facility] Comment on above: Order Comment: 1 Y Result Comment: Non- GFR Calc Performed By: #### L 501.5425, L500.2500, L100.0100 #### [facility] [address] [place], [address] Glucose [Mass/Vol] 185 mg/dL High 74-106 [facility] Comment on above: Order Comment: 1 Y Result Comment: Fast ing Glucose result greater than or equal to 126 mg/dL suggests DIABETES MELLITUS per A.D.A. criteria. Performed By: #### L 501.5425, L500.2500, L100.0100 #### [facility] [address] [place], [address] Potassium [Moles/Vol] 4.0 mmol/L Normal 3.5-5.1 [facility] Comment on above: Order Comment: 1 Y Performed By: #### L 501.5425, L500.2500, L100.0100 #### [facility] [address] [place], [address] Sodium [Moles/Vol] 137 mmol/L Normal 136-145 [facility] Comment on above: Order Comment: 1 Y Performed By: #### L 501.5425, L500.2500, L100.0100 #### [facility] [address] [place], [address] Urea nitrogen [Mass/Vol] 15 mg/dL Normal 7-18 [facility] Comment on above: Order Comment: 1 Y Performed By: #### L 501.5425, L500.2500, L100.0100 #### [facility] [address] [place], [address] CBC W/Diff, Automatedon 06-07-2024 Absolute Lymph 3.08 X10 3/uL Normal 0.83-4.51 [facility] Comment on above: Performed By: #### L 501.5425, L500.2500, L100.0100 #### [facility] [address] [place], [address] Absolute Neut 4.5 X10 3/uL Normal 2.0-7.7 [facility] Comment on above: Performed By: #### L 501.5425, L500.2500, L100.0100 #### [facility] [address] [place], [address] Basophils/100 WBC (Bld) 0.7 % Normal 0-1 [facility] Comment on above: Performed By: #### L 501.5425, L500.2500, L100.0100 #### [facility] [address] [place], [address] Eosinophils/100 WBC (Bld) 4.6 % Normal 0-5 [facility] Comment on above: Performed By: #### L 501.5425, L500.2500, L100.0100 #### [facility] [address] [place], [address] Erythrocyte distribution width (RBC) [Ratio] 12.9 % Normal 11.6-14.6 [facility] Comment on above: Performed By: #### L 501.5425, L500.2500, L100.0100 #### [facility] [address] [place], [address] Hematocrit (Bld) [Volume fraction] 44.8 % Normal 40-54 [facility] Comment on above: Performed By: #### L 501.5425, L500.2500, L100.0100 #### [facility] [address] [place], [address] Hemoglobin (Bld) [Mass/Vol] 14.8 g/dL Normal 13.0-16.5 [facility] Comment on above: Performed By: #### L 501.5425, L500.2500, L100.0100 #### [facility] [address] [place], [address] IG% 0.200 Normal 0.0-0.9 [facility] Comment on above: Result Comment: IG% - Immature Granulocytes (promyelocytes, myelocytes and metamyelocytes) > 1% indicates that a LEFT SHIFT is Present. Performed By: #### L 501.5425, L500.2500, L100.0100 #### [facility] [address] [place], [address] Lymphocytes/100 WBC (Bld) 34.8 % Normal 19-41 [facility] Comment on above: Performed By: #### L 501.5425, L500.2500, L100.0100 #### [facility] [address] [place], [address] MCH (RBC) [Entitic mass] 29.3 pg Normal 27.0-32.0 [facility] Comment on above: Performed By: #### L 501.5425, L500.2500, L100.0100 #### [facility] [address] [place], [address] MCHC (RBC) [Mass/Vol] 33.0 g/dL Normal 32-36 [facility] Comment on above: Performed By: #### L 501.5425, L500.2500, L100.0100 #### [facility] [address] [place], [address] MCV (RBC) [Entitic vol] 88.7 fL Normal 80-94 [facility] Comment on above: Performed By: #### L 501.5425, L500.2500, L100.0100 #### [facility] [address] [place], [address] Monocytes/100 WBC (Bld) 9.5 % Normal 0-10 [facility] Comment on above: Performed By: #### L 501.5425, L500.2500, L100.0100 #### [facility] [address] [place], [address] Neutrophils/100 WBC (Bld) 50.2 % Normal 47-70 [facility] Comment on above: Performed By: #### L 501.5425, L500.2500, L100.0100 #### [facility] [address] [place], [address] Nucleated RBC (Bld) [#/Vol] 0 10*3/uL Normal 0-5 [facility] Comment on above: Performed By: #### L 501.5425, L500.2500, L100.0100 #### [facility] [address] [place], [address] Platelet mean volume (Bld) [Entitic vol] 10.6 fL Normal 6.2-12.0 [facility] Comment on above: Performed By: #### L 501.5425, L500.2500, L100.0100 #### [facility] [address] [place], [address] Platelets (Bld) [#/Vol] 230 10*3/uL Normal 150-450 [facility] Comment on above: Performed By: #### L 501.5425, L500.2500, L100.0100 #### [facility] [address] [place], [address] RBC (Bld) [#/Vol] 5.05 10*6/uL Normal 4.6-6.2 [facility] Comment on above: Performed By: #### L 501.5425, L500.2500, L100.0100 #### [facility] [address] [place], [address] RDW SD 41.9 fl Normal 35.1-43.9 [facility] Comment on above: Performed By: #### L 501.5425, L500.2500, L100.0100 #### [facility] [address] [place], [address] WBC (Bld) [#/Vol] 8.9 10*3/uL Normal 4.4-11.0 [facility] Comment on above: Performed By: #### L 501.5425, L500.2500, L100.0100 #### [facility] [address] [place], [address] Chest PA and Lateralon 06-21 Chest PA and Lateral [facility] [address] [place] [address] Chest PA and Lateral MR#: [id number] Acct: [id number] Name: SUMI AMADO Rep #: [id number] : 1970 M 54 From: Guy Coyle MD PCP: REYNOLD Flores Status: [facility] ER Study: Chest PA and Lateral Date of Exam: 06/21/24 Exam# [id number] Ordering Dr: Kapil Joseph DO [id number] STUDY: X-RAY CHEST REASON FOR EXAM: Male, 54 years old. chest pain TECHNIQUE: PA and lateral COMPARISON: None. FINDINGS: The lungs are clear and expanded. There is no demonstrated pleural abnormality. Normal size heart. Normal mediastinum and brian. Normal visualized pulmonary arteries. Normal visualized aortic arch and descending thoracic aorta. Dorsal spine demonstrates mild degenerative change. Normal visualized ribs, clavicles, and shoulders. There is no demonstrated abnormality of the visualized soft tissue structures of the upper abdomen. RAD/Chest PA and Lateral IMPRESSION: No acute cardiopulmonary pathology. Electronically Signed: Guy Coyle MD at 19:54 EST Reading Location ID and State: [facility] / [place] Tel , Service support , CC: REYNOLD Berry; Dr. Kapil Joseph DO Veterinarian Poultry: Signed Normal [facility] Emergency Department Summary on 06-21-2024 Emergency Department Summary [facility] Medical Records Department [address] [place] [id number] Emergency Department Summary 06/21/24 MR#: [id number] Acct: [id number] Name: SUMI AMADO Rep #: [id number] : 1970 54 From: Kapil Joseph DO PCP: REYNOLD Flores Status:REG ER Location: ED HPI History of Present Illness Chief Complaint: Chest Pain Narrative Narrative: Patient is a 54-year-old male with past medical history of tobacco use, hypertension, diabetes, CAD status post stent approximately 5 years ago, ALEXEI who presents to the emergency department with a chief complaint of chest pain. Patient states that while at work today he developed a little bit of chest pain in the center of his chest states it did not radiate anywhere. He states that he was sitting down at a computer not exerting himself when the pain started. He states that it was on and off throughout the day and was doing well while going home. He states that as the evening went on he ended up sitting in his chair watching TV and the pain returned. Given his history of a heart attack his was concerned and wanted him to come here for further evaluation management. He states that up if he gets up and exerts himself he does not have any pain. Patient denies any recent travel history denies any history of blood clots or surgeries. Patient did note that he checked his blood pressure earlier's evening noted that it was running high states been taking his medications as prescribed. Patient states that he has not had a stress test in a significant mount time. [facility] Medical History Cellulitis of right forearm Acute maxillary sinusitis, unspecified Paroxysmal ventricular tachycardia Hypertension Claudication of both lower extremities Mixed hyperlipidemia ALEXEI on CPAP Old myocardial infarction Atherosclerotic heart disease of [place] coronary artery without angina pectoris Presence of stent in coronary artery ( 05/18/19) Essential hypertension Diabetes Myocardial infarction Home Medications ???Medication ???Instructions ???Recorded ???Last Taken ???Type aspirin 81 mg tablet,delayed 81 mg PO DAILY heart health 07/25/19 07/08/20 History release atorvastatin 80 mg tablet 80 mg PO QHS cholesterol 07/25/19 07/08/20 History lisinopril 5 mg tablet 5 mg PO DAILY #30 tabs 02/06/20 07/08/20 Rx clopidogrel 75 mg tablet 75 mg PO DAILY Anti-platelet #90 06/11/20 07/09/20 Rx tabs glipizide 5 mg tablet, extended 5 mg PO DAILY Diabetes #90 tabs 01/19/22 Unknown Rx release 24 hr metformin 500 mg tablet,extended 250 mg PO BID 06/26/22 Unknown History release 24 hr nitroglycerin 0.4 mg sublingual 0.4 mg sublingual Q5-15M PRN chest 08/03/22 Unknown Rx tablet pain #25 tabs metoprolol succinate 25 mg 12.5 mg (1/2 x 25 mg) PO DAILY #15 02/21/24 Unknown Rx tablet,extended release 24 hr TABLETS Allergy/AdvReac Type Severity Reaction Status Date / Time No Known Allergies Allergy Verified 06/21/24 19:17 Family History Father CVA (cerebral vascular accident) Cancer Heart disease Brain aneurysm COPD (chronic obstructive pulmonary disease) Mother Myocardial infarction Heart disease Hypertension Other Cardiovascular disease Surgical History History of arthroscopic knee surgery Presence of coronary angioplasty implant and graft ( 05/18/19) Social History Smoking Status: Current every day smoker tobacco type: cigarettes alcohol intake: current alcohol intake frequency: a few times a month substance use type: does not use caffeine: Yes Type: coffee Number of servings: 4 what type of physical activity do you participate in: walking ROS ROS ED ROS Narrative Constitutional: Complains of headache denies any fevers, chills, lightheadedness or dizziness Eyes: Denies change in vision double vision blurry vision Cardiovascular: Denies chest pain or palpitations currently Respiratory: Denies coughing wheezing shortness of breath Abdomen: Denies abdominal pain nausea vomit diarrhea : Denies any urinary symptoms Neurological: Denies any numbness, weakness, tingling Musculoskeletal: Denies back pain Skin: Denies rashes or lesions EXAM Physical Exam Narrative Exam Narrative: General: Patient lying in bed rest comfortably did not appear to be in acute distress Head: Atraumatic, normocephalic Eyes: PERRL bilateral, EOMI bilateral, no conjunctival injection noted Neck: Soft, supple, trachea midline Cardiovascular: Regular rate and rhythm no murmurs gallops rubs noted Respiratory: Clear to auscultation bilaterally Abdomen: Soft, nondistended, nontender to palpation no pulsati (more content not included)... Normal [facility] L501.4020on 06-21-2024 TROPONIN-I HS 5 pg/mL Normal 3.0-78.0 [facility] Comment on above: Result Comment: Plea se Note: New Test Units and Gender Specific Reference Ranges. For more information see Policy Stat Procedure [place] High Sensitivity Troponin (TNIH) and attachments. Performed By: #### L 501.4020 #### [facility] [address] [place], [place], [address] L501.5425on 06-21-2024 TROPONIN-I HS 8 pg/mL Normal 3.0-78.0 [facility] Comment on above: Order Comment: 1 Y Result Comment: Plea se Note: New Test Units and Gender Specific Reference Ranges. For more information see Policy Stat Procedure [place] High Sensitivity Troponin (TNIH) and attachments. Performed By: #### L 501.5425, L500.2500, L100.0100 #### [facility] [address] [place], [address] Urgent Care Visit Reporton 1 07-17-2023 Urgent Care Visit Report [facility] [address], [address] [place], [place] [address] OFFICE VISIT Date of Service: 05/16/24 MR#: [id number] Acct: [id number] Name: SUMI AMADO Rep #: [id number] : 1970 Provider: REYES Samuels Age/Sex: 54/M Location: [facility] Status: Signed Intake Vital Signs 12/06/23 10:40 05/16/24 16:50 Height 6 ft 6 ft Weight: 259 lb 255 lb BMI 35.1 34.5 BP 120/74 128/84 H Blood Pressure Location Lt brachial Lt brachial Position Sitting Sitting Respiration 18 18 Pulse 74 78 Pulse Source Monitor Monitor Temp 97.8 F Temp Source Oral Pulse Oximetry (%) 96 97 Oxygen Delivery Method room air room air Intake Visit Reasons: POSSIBLE INFECTION AFTER TATTOO A WEEK AGO Chief Complaint: INFECTION ON RT FOREARM AFTER TATTOO A WEEK AGO Conference Planner Required: No Accompanied by: Self Is patient in pain?: Yes Allergies No Known Allergies Allergy (Verified 05/16/24 16:52) Medications ???Medication ???Instructions ???Recorded ???Confirmed ???Type aspirin 81 mg tablet,delayed 81 mg PO DAILY heart health 07/25/19 05/16/24 History release atorvastatin 80 mg tablet 80 mg PO QHS cholesterol 07/25/19 05/16/24 History lisinopril 5 mg tablet 5 mg PO DAILY #30 tabs 02/06/20 05/16/24 Rx clopidogrel 75 mg tablet 75 mg PO DAILY Anti-platelet #90 06/11/20 05/16/24 Rx tabs albuterol sulfate 90 mcg/actuation 2 puff inhalation Q4H PRN 07/04/21 05/16/24 History aerosol inhaler glipizide 5 mg tablet, extended 5 mg PO DAILY Diabetes #90 tabs 01/19/22 05/16/24 Rx release 24 hr metformin 500 mg tablet,extended 250 mg PO BID 06/26/22 05/16/24 History release 24 hr nitroglycerin 0.4 mg sublingual 0.4 mg sublingual Q5-15M PRN chest 08/03/22 05/16/24 Rx tablet pain #25 tabs metoprolol succinate 25 mg 12.5 mg (1/2 x 25 mg) PO DAILY #15 02/21/24 05/16/24 Rx tablet,extended release 24 hr TABLETS doxycycline monohydrate 100 mg 100 mg PO BID #20 caps 05/16/24 05/16/24 Rx capsule Nurse's Note: PT STATES HE GOT A TATTOO A WEEK AGO AND NOW IT IS INFECTED RED AND SEEPING PUS. 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 STATES HE HAS NEVER HAD THIS ISSUE IN THE PAST [facility] Medical History (Updated 05/16/24 @ 17:22 by Huy Gannon PA, PA) Cellulitis of right forearm Acute maxillary sinusitis, unspecified Paroxysmal ventricular tachycardia Hypertension Claudication of both lower extremities Mixed hyperlipidemia ALEXEI on CPAP Old myocardial infarction Atherosclerotic heart disease of [place] coronary artery without angina pectoris Presence of stent in coronary artery ( 05/18/19) Essential hypertension Diabetes Myocardial infarction Surgical History History of arthroscopic knee surgery Presence of coronary angioplasty implant and graft ( 05/18/19) Family History Father CVA (cerebral vascular accident) Cancer Heart disease Brain aneurysm COPD (chronic obstructive pulmonary disease) Mother Myocardial infarction Heart disease Hypertension Other Cardiovascular disease Social History Smoking Status: Current every day smoker tobacco type: cigarettes alcohol intake: current alcohol intake frequency: a few times a month substance use type: does not use caffeine: Yes Type: coffee Number of servings: 4 what type of physical activity do you participate in: walking HPI HPI Chief Complaint: INFECTION ON RT FOREARM AFTER TATTOO A WEEK AGO Details: SUMI AMADO, is a 54 M who presents to the office today for initial evaluation approximately 24- hour history of progressively worsening erythema along right forearm tattoo which was placed there approximately a week ago. No complaints of fever, chills, sweats, lightheadedness/dizzin ess, nausea/vomiting and no loss of sensation or strength or function distal to the wound site. Patient notes he is doing compliant with wound care as instructed by cartoon artist though nonetheless is concerned because the amount of swelling and erythema and tenderness to the same. He has taken no [id number] products to assist with discomfort. He notes no other associated symptoms and no other alleviating/aggravatin g factors. ROS Const Constitutional: No other (As above) Exam Const General: cooperative, healthy appearing and no acute distress Orientation: alert and awake Resp Effort Inspection: normal respiratory effort and able to speak in complete sentences Cardio Rate: regular rate Pulses: radial pulses present Skin General: no rashes or lesions noted (Except R FA erythematous open lesion within tattoo w/ honey color crusting) Neuro General: patient alert and patient awake Cognition: (more content not included)... Normal [facility] Absolute lymphocyte countOrd ered By: Cristela Campoverde on 06-27-2023 Lymphocytes Auto (Unsp spec) [#/Vol] 2.61 10*3/uL 0.83-4.51 [facility] Automated lymphocyte count a s percentage of total leukocytesOrdered By: Cristela Campoverde on 06-27-2023 Lymphocytes/100 WBC Auto (Unsp spec) 29.4 % 19-41 [facility] Basophil percentageOrdered B y: Cristela Campoverde on 06-27-2023 Basophils/100 WBC (Bld) 0.7 % 0-1 [facility] Chloride [Moles/Vol] 105 mmol/L 98-107 [facility] Eosinophils/100 WBC (Bld) 5.4 % 0-5 [facility] Glucose [Mass/Vol] 193 mg/dL 74-106 [facility] Comment on above: Fasting Glucose resu lt greater than or equal to 126 mg/dL suggests DIABETES MELLITUS per A.D.A. criteria. Hemoglobin (Bld) [Mass/Vol] 15.6 g/dL 13.0-16.5 [facility] Monocytes/100 WBC (Bld) 8.8 % 0-10 [facility] Neutrophils (Bld) [#/Vol] 4.9 10*3/uL 2.0-7.7 [facility] Neutrophils/100 WBC (Bld) 55.4 % 47-70 [facility] Potassium [Moles/Vol] 4.0 mmol/L 3.5-5.1 [facility] Sodium [Moles/Vol] 140 mmol/L 136-145 [facility] WBC (Bld) [#/Vol] 8.9 10*3/uL 4.4-11.0 [facility] Determination of erythrocyte mean corpuscular volume (MCV)Ordered By: Cristela Campoverde on 06-27-2023 MCV (RBC) [Entitic vol] 90.7 fL 80-94 [facility] Erythrocyte distribution wid th ratioOrdered By: Cristela Campoverde on 06-27-2023 Erythrocyte distribution width (RBC) [Ratio] 13.2 % 11.6-14.6 [facility] Erythrocyte distribution wid th standard deviationOrdered By: Cristela Campoverde on 06-27-2023 Erythrocyte distribution width (RBC) [Entitic vol] 43.8 fL 35.1-43.9 [facility] Hematocrit Auto (Bld) [Volum e fraction]Ordered By: Cristela Campoverde on 06-27-2023 Hematocrit (Bld) [Volume fraction] 49.0 % 40-54 [facility] Immature granulocytes/100 WB C Auto (Bld)Ordered By: Cristela Campoverde on 06-27-2023 Immature granulocytes/100 WBC (Bld) 0.300 % 0.0-0.9 [facility] Comment on above: IG% - Immature Granu locytes (promyelocytes, myelocytes and metamyelocytes) > 1% indicates that a LEFT SHIFT is Present. Laboratory - Chemistry and C hemistry - challengeOrdered By: Cristela Campoverde on 06-27-2023 CO2 [Moles/Vol] 27.0 mmol/L 21.0-32.0 [facility] Magnesium [Mass/Vol] 1.9 mg/dL 1.6-2.6 [facility] Urea nitrogen/Creatinine [Mass ratio] 15.8 mg/mg 10-20 [facility] Laboratory - Hematology and Cell countsOrdered By: Cristela Campoverde on 06-27-2023 MCH (RBC) [Entitic mass] 28.9 pg 27.0-32.0 [facility] MCHC (RBC) [Mass/Vol] 31.8 g/dL 32-36 [facility] Nucleated RBC/100 WBC (Bld) [Ratio] 0 % 0-5 [facility] Platelets (Bld) [#/Vol] 251 10*3/uL 150-450 [facility] Laboratory - Microbiology an d Antimicrobial susceptibilityOrdered By: Cristela Campoverde on 06-27-2023 SARS-CoV-2 (COVID-19) RNA VALERIE+probe Ql (Unsp spec) [facility] No Panel InformationOrdered By: Cristela Campoverde on 06-27-2023 Troponin I High Sensitivity 5 pg/mL 3.0-78.0 [facility] Comment on above: Please Note: New [place] t Units and Gender Specific Reference Ranges. For more information see Policy Stat Procedure [place] High Sensitivity Troponin (TNIH) and attachments. Estimated Creatinine Clearance Calc 118.04 ml/min [facility] Estimated GFR (MDRD) Amer 107 mL/min >60 [facility] Comment on above: GFR Calc Estimated GFR (MDRD) Non-Af Amer 88 mL/min >60 [facility] Comment on above: Non- GFR Calc Platelet mean volume Justo-Ec ker (Bld) [Entitic vol]Ordered By: Cristela Campoverde on 06-27-2023 Platelet mean volume (Bld) [Entitic vol] 10.9 fL 6.2-12.0 [facility] RBC Auto (Bld) [#/Vol]Ordere d By: Cristela Campoverde on 06-27-2023 RBC (Bld) [#/Vol] 5.40 10*6/uL 4.6-6.2 [facility] Serum or plasma calcium ray urement (mass/volume)Ordered By: Cristela Campoverde on 06-27-2023 Calcium [Mass/Vol] 9.0 mg/dL 8.5-10.1 [facility] Serum or plasma creatinine m easurement (mass/volume)Ordered By: Cristela Campoverde on 06-27-2023 Creatinine [Mass/Vol] 0.95 mg/dL 0.70-1.30 [facility] Comment on above: The validity of the calculated GFR & GFRAA in patients over 70 years has not been determined. Clinical correlation is essential. Serum or plasma urea nitroge n measurement (mass/volume)Ordered By: Cristela Campoverde on 06-27-2023 Urea nitrogen [Mass/Vol] 15 mg/dL 7-18 [facility] Thin prep Papanicolaou smear with manual screeningOrdered By: Cristela Campoverde on 06-27-2023 Thin prep Papanicolaou smear with manual screening 8 5-15 [facility] Basophil percentageon 2021 Bilirubin [Mass/Vol] 0.70 mg/dL 0.20-1.00 [facility] Work Phone: Comment on above: For patients on eltr ombopag therapy, use of Dimension [place] TBIL is not recommended. Cholesterol [Mass/Vol] 94 mg/dL <200 [facility] Work Phone: Comment on above: <200 mg/dL Desirable 200-240 mg/dL Borderline >240 mg/dL High Risk Protein [Mass/Vol] 6.8 g/dL 6.4-8.2 [facility] Work Phone: Triglyceride [Mass/Vol] 76 mg/dL <199 [facility] Work Phone: Comment on above: The drugs N-Acetylcy steine and Metamizole may falsely depress this assay.Serum Triglycerides Reference Interval Normal <150 mg/dL Borderline high 150 - 199 mg/dL High 200 - 499 mg/dL Very High > or =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 Results may be 10%-15% lower than serum/plasma values. (CLIA ID [id number]) Interpretation and review of laboratory results Abnormal [facility] Work Phone: Test Performed by [employer], [address] [place] [address] [facility] Work Phone: Phosphoruson 05-20-2019 Phosphate [Mass/Vol] 3.9 mg/dL Normal 2.5-4.5 [facility] Comment on above: Performed By: #### H A1C2, LIPD2, TROPN, MBED3 #### [employer] [address] [place] [id number] PhosphorusOrdered By: Santiago cardoza on 05-20-2019 Phosphate [Mass/Vol] 3.9 mg/dL 2.5 - 4 .5 mg/dL [facility] Work Phone: CBCOrdered By: Santiago lemus 05-19-2019 Erythrocyte distribution width (RBC) [Ratio] 14.1 % 11.5 - 14.5 % [facility] Work Phone: Hematocrit (Bld) [Volume fraction] 45.6 % 40 - 52 % [facility] Work Phone: Hemoglobin (Bld) [Mass/Vol] 15.4 g/dL 13 - 18 g/dL [facility] Work Phone: Interpretation and review of laboratory results Abnormal [facility] Work Phone: MCH (RBC) [Entitic mass] 29.8 pg 26 - 34 pg [facility] Work Phone: MCHC 33.7 % 32 - 36 % [facility] Work Phone: MCV (RBC) [Entitic vol] 88.5 fL 80 - 98 fL S [facility] Work Phone: Platelet mean volume (Bld) [Entitic vol] 8.8 fL 7.4 - 10.4 fL [employer] Work Phone: Platelets (Bld) [#/Vol] 216 10*3/uL 140 - 440 10*3/uL [facility] Work Phone: RBC (Bld) [#/Vol] 5.15 10*6/uL 4.4 - 5.9 10*6/uL [employer] Work Phone: WBC (Bld) [#/Vol] 11.9 10*3/uL High 3.6 - 10.7 10*3/uL [employer] Work Phone: Test Performed by [employer], [facility] [place] [address] [employer] Work Phone: CK MBOrdered By: Santiago Fried on 05-19-2019 CK [Catalytic activity/Vol] 666 U/L High 30 - 170 U/L [employer] Work Phone: CK.MB [Mass/Vol] 23.8 ng/mL High 0 - 2.4 ng/mL [employer] Work Phone: Comment on above: Both the CKMB and th e Relative Index must be abnormal for clinical significance. Interpretation and review of laboratory results Abnormal [facility] Work Phone: [phone] Relative Index 3.6 High [employer] Work Phone: Test Performed by [employer], [facility] [place] [place] [address] [employer] Work Phone: [phone] CK [Catalytic activity/Vol] 812 U/L High 30 - 170 U/L [employer] Work Phone: [phone] CK.MB [Mass/Vol] 32.9 ng/mL High 0 - 2.4 ng/mL [employer] Work Phone: Comment on above: Both the CKMB and th e Relative Index must be abnormal for clinical significance. Interpretation and review of laboratory results Abnormal [employer] Work Phone: Relative Index 4.1 High [employer] Work Phone: Test Performed by [employer], [facility] [place] [address] [employer] Work Phone: [phone] CK [Catalytic activity/Vol] 1127 U/L High 30 - 170 U/L [employer] Work Phone: CK.MB [Mass/Vol] 54.2 ng/mL High 0 - 2.4 ng/mL [facility] Work Phone: Comment on above: Both the CKMB and th e Relative Index must be abnormal for clinical significance. Interpretation and review of laboratory results Abnormal [facility] Work Phone: Relative Index 4.8 High [facility] Work Phone: Test Performed by [employer], [address] [place] [id number] [place] [address] Work Phone: CKMB / Relative Index(For ED ONLY)on 05-19-2019 CK.MB [Mass/Vol] 23.8 ng/mL High 0.0-2.4 [facility] Comment on above: Result Comment: Both the CKMB and the Relative Index must be abnormal for clinical significance. Performed By: #### H A1C2, LIPD2, TROPN, MBED3 #### [facility] [employer] [address] [place] [address] Relative Index 3.6 High 0.0-3.0 [facility] Comment on above: Performed By: #### H A1C2, LIPD2, TROPN, MBED3 #### [facility] [employer] [address] [place] [address] CK [Catalytic activity/Vol] 666 U/L High 30-170 [facility] Comment on above: Performed By: #### H A1C2, LIPD2, TROPN, MBED3 #### [employer] [address] [place] [address] CK.MB [Mass/Vol] 32.9 ng/mL High 0.0-2.4 [facility] Comment on above: Result Comment: Both the CKMB and the Relative Index must be abnormal for clinical significance. Performed By: #### H A1C2, LIPD2, TROPN, MBED3 #### [employer] [address] Relative Index 4.1 High 0.0-3.0 [facility] Comment on above: Performed By: #### H A1C2, LIPD2, TROPN, MBED3 #### [facility] [address] [place], [place] CK [Catalytic activity/Vol] 812 U/L High 30-170 [facility] Comment on above: Performed By: #### H A1C2, LIPD2, TROPN, MBED3 #### [place] [address] [address] [place], [place] CK.MB [Mass/Vol] 54.2 ng/mL High 0.0-2.4 [facility] Comment on above: Result Comment: Both the CKMB and the Relative Index must be abnormal for clinical significance. Performed By: #### H A1C2, LIPD2, TROPN, MBED3 #### [place] [address] [address] [place], [place] Relative Index 4.8 High 0.0-3.0 [facility] Comment on above: Performed By: #### H A1C2, LIPD2, TROPN, MBED3 #### [place] [address] [address] [place], [place] CK [Catalytic activity/Vol] 1127 U/L High 30-170 [facility] Comment on above: Performed By: #### H A1C2, LIPD2, TROPN, MBED3 #### [place] [address] [address] [place], [place] Comp Metabolic Panelon 05-19 ALP [Catalytic activity/Vol] 73 U/L Normal 38-126 [facility] Comment on above: Performed By: #### H EMOG, CMP3, MG3, PHOS3 #### [place] [address] [address] [place], [place] ALT [Catalytic activity/Vol] 42 U/L Normal 13-69 [facility] Comment on above: Performed By: #### H EMOG, CMP3, MG3, PHOS3 #### [place] [address] [address] [place], [place] Calcium [Mass/Vol] 9.0 mg/dL Normal 8.4-10.4 [facility] Comment on above: Performed By: #### H EMOG, CMP3, MG3, PHOS3 #### [place] [address] [address] [place], [place] Glucose [Mass/Vol] 139 mg/dL High 70-100 [facility] Comment on above: Performed By: #### H EMOG, CMP3, MG3, PHOS3 #### [facility] [address] [place], [place] Protein [Mass/Vol] 6.6 g/dL Normal 6.3-8.2 [facility] Comment on above: Performed By: #### H EMOG, CMP3, MG3, PHOS3 #### [facility] [address] [place], [place] Urea nitrogen [Mass/Vol] 14 mg/dL Normal 7-20 [facility] Comment on above: Performed By: #### H EMOG, CMP3, MG3, PHOS3 #### [place] [address] [address] [place], [place] Anion gap [Moles/Vol] 7 Normal [facility] Comment on above: Performed By: #### H EMOG, CMP3, MG3, PHOS3 #### [place] [address] [address] [place], [place] AST [Catalytic activity/Vol] 110 U/L High 15-46 [facility] Comment on above: Performed By: #### H EMOG, CMP3, MG3, PHOS3 #### [place] [address] [address] [place], [place] Bilirubin [Mass/Vol] 0.4 mg/dL Normal 0.2-1.3 [facility] Comment on above: Performed By: #### H EMOG, CMP3, MG3, PHOS3 #### [facility] [address] [place] [address] CO2 [Moles/Vol] 22 mmol/L Normal 22-30 [facility] Comment on above: Performed By: #### H EMOG, CMP3, MG3, PHOS3 #### [facility] [address] [place] [address] Creatinine [Mass/Vol] 0.65 mg/dL Normal 0.52-1.25 [facility] Comment on above: Performed By: #### H EMOG, CMP3, MG3, PHOS3 #### [place] [place] [address] [place] [address] GFR/1.73 sq M predicted among blacks MDRD (S/P/Bld) [Vol rate/Area] mL/min/{1.73_m2} Normal >60 [facility] Comment on above: Performed By: #### H EMOG, CMP3, MG3, PHOS3 #### [place] [address] [address] [place], [place] GFR/1.73 sq M predicted among non-blacks MDRD (S/P/Bld) [Vol rate/Area] mL/min/{1.73_m2} Normal >60 [facility] Comment on above: Result Comment: Sour ce- MDRD equation with creatinine calibration to IDMS(NKDEP) eGFR not recommended for drug dose adjustment Performed By: #### H EMOG, CMP3, MG3, PHOS3 #### [place] [address] [address] [place] Chloride [Moles/Vol] 107 mmol/L Normal 98-107 [facility] Comment on above: Performed By: #### H EMOG, CMP3, MG3, PHOS3 #### [address] [address] [place], [place] Potassium [Moles/Vol] 3.9 mmol/L Normal 3.5-5.1 [facility] Comment on above: Performed By: #### H EMOG, CMP3, MG3, PHOS3 #### [place] [address] [address] [place] Sodium [Moles/Vol] 137 mmol/L Normal 135-145 [facility] Comment on above: Performed By: #### H EMOG, CMP3, MG3, PHOS3 #### [place] [address] [address] [place], [place] Albumin [Mass/Vol] 3.9 g/dL Normal 3.5-5.0 [facility] Comment on above: Performed By: #### H EMOG, CMP3, MG3, PHOS3 #### [address] [address] [place] [address] Comprehensive Metabolic Pane lOrdered By: Santiago Fried on 05-19-2019 Albumin [Mass/Vol] 3.9 g/dL 3.5 - 5 g/dL [facility] Work Phone: ALP [Catalytic activity/Vol] 73 U/L 38 - 126 U/L [facility] Work Phone: ALT [Catalytic activity/Vol] 42 U/L 13 - 69 U/L [facility] Work Phone: Anion gap [Moles/Vol] 7 mmol/L [facility] Work Phone: AST [Catalytic activity/Vol] 110 U/L High 15 - 46 U/L [facility] Work Phone: Bilirubin [Mass/Vol] 0.4 mg/dL 0.2 - 1 .3 mg/dL [facility] Work Phone: Calcium [Mass/Vol] 9.0 mg/dL 8.4 - 10. 4 mg/dL [facility] Work Phone: Chloride [Moles/Vol] 107 mmol/L 98 - 10 7 mmol/L [facility] Work Phone: CO2 [Moles/Vol] 22 mmol/L 22 - 30 mmol/L [facility] Work Phone: Creatinine [Mass/Vol] 0.65 mg/dL 0.52 - 1.25 mg/dL [facility] Work Phone: EGFR IF NonAfrican Botswanan >60.0 >60 mL/min [facility] Work Phone: Comment on above: Source- MDRD equatio n with creatinine calibration to IDMS(NKDEP) eGFR not recommended for drug dose adjustment GFR/1.73 sq M.predicted among blacks MDRD (S/P/Bld) [Vol rate/Area] mL/min/{1.73_m2} >60 mL/min [facility] Work Phone: Glucose [Mass/Vol] 139 mg/dL High 70 - 100 mg/dL [facility] Work Phone: Potassium [Moles/Vol] 3.9 mmol/L 3.5 - 5.1 mmol/L [facility] Work Phone: Protein [Mass/Vol] 6.6 g/dL 6.3 - 8.2 g/dL [facility] Work Phone: Sodium [Moles/Vol] 137 mmol/L 135 - 145 mmol/L [facility] Work Phone: Urea nitrogen [Mass/Vol] 14 mg/dL 7 - 20 mg/dL [facility] Work Phone: Diagnostic Cardiac Snowblower Mechanic ProcedureOrdered By: Javier Duval on 05-19-2019 [facility] ----- CARDIAC CATHETER[facility]ATION Patient: Sumi Amado Procedure Date: 05/18/2019 : 1970 Age: 49 Gender: M Patient Type: Inpatient Procedure physician: Javier Duval MD Fellow: Referring Physician: Javier Duval MD ----- INDICATIONS: ST elevated myocardial infarction. ----- Procedures performed: # Left coronary angiography. # Right coronary angiography. # Left heart catheterization. # Percutaneous intervention on the 100% stenosis in the mid left circumflex. Balloon angioplasty. Interventional IVUS examination. Stent placement. ----- SUMMARY: 49y/o male with hx of HTN, HL, DM, smoking; here with acute chest pain about 2 hours prior to presentation. Inferior ST elevation no melanie on EMS EKG. IMPRESSIONS: 1. Acute occlusion of the mid-circumflex, culprit. 2. Mild CAD of the left main, LAD, OM1, and RCA systems. 3. No aortic stenosis. 4. Successful DRUG ELUTING STENT placed to the 100% occlusion of the mid-circumflex, with minimal residual stenosis. -IVUS used to appropriately size stent. RECOMMENDATIONS: 1. Admit to CCU. 2. Aspirin 81mg daily, lifelong. 3. Dual antiplatelet therapy for minimum 12 months. 4. TTE to evaluate LV systolic function. 5. Guideline directed medical therapy. 6. Continued aggressive risk factor modification, smoking cessation critical. ----- HISTORY: Risk factors: Current tobacco use. Hypertension. Diabetes mellitus; on therapy with oral hypoglycemics. Dyslipidemia. [[ LEFT]] ----- PROCEDURE IN DETAIL: Study status: Cardiac cath: emergent. Consent: The risks, benefits, and alternatives to the procedure and sedation wer e explained to the patient and informed consent was obtained. Fluorosco py time: Fluoroscopy time: 6.8 min. Fluoroscopy dose: Fluoroscopy dos e: 77.6 cGy. Location: Catheterization laboratory. PROCEDURE: 1. Initial setup. The patient was brought to the laboratory. A baseline ECG was recorded. Intravenous access was obtained. Surface ECG leads, blood pressure measurements, and pulse oximetric signals were monitored. 2. Skin preparation. The planned puncture sites were prepped and draped in the usual sterile manner. 3. Local anesthesia. 1% lidocaine was administered. 4. Right radial artery access. A 6Fr/10cm Glidesheath Slender sheath was advanced into the vessel. 5. Selective left coronary angiography. A 5Fr x 100cm JL3.5 catheter was advanced into the left coronary vessel ostium under fluoroscopic guidance. Contrast was injected. Images were obtained in multiple projections. 6. Selective right coronary angiography. A 5Fr x 100cm JR4 catheter was advanced into the right coronary vessel ostium under fluoroscopic guidance. Contrast was injected. Images were obtained in multiple projections. 7. ACT was 302 sec. 8. A stent was placed in the stenosis in the mid circumflex. See detailed description below (1st lesion intervention). 9. Right radial artery hemostasis. Mechanical compression was applied. 10. Left heart catheterization. A catheter was advanced across the aortic valve to the left ventricle under fluoroscopic guidance. 1st lesion intervention: Percutaneous intervention on the 100% stenosis in the mid left circumflex. 1. Guider placement: a 6Fr x 100cm Launcher EBU3.5 guiding catheter was placed. 2. A .014/190cm Hi-Torque Whisper MS wire was placed across the lesion. 3. Balloon angioplasty. A 2.5 mm (D) x 15 mm (L), Trek RX balloon was employed. The balloon was placed across the lesion and given a single inflation with a maximum inflation pressure of 12 angle. 4. Intravascular ultrasound evaluation, using a .014 [employer] [place] catheter. 5. Stent placement. A 2.5 mm (D) x 28 mm (L), Xience Marilia RX (drug eluting) stent was used. The stent was advanced across the lesion and deployed with a single inflation and a maximum pressure of 16 angle. STUDY COMPLETION: The estimated blood loss was 10 ml. All catheters inserted during the procedure were removed. The patient tolerated the pr ocedure well and was discharged from the lab. There were no complication s. Administered medications: BRILINTA (180 load), 180mg, PO, BRILINTA (180 load). Verapamil (Isoptin, Calan, Covera), 2.5mg, intra-arteriall y, VERAPAMIL. N (more content not included)... [employer] Work Phone: Misha, [facility] Incoming Cardiology Results From [place]/Mary Anne - 05/19/2019 9:28 AM EST [facility] ----- CARDIAC CATHETERIZATION Patient: Sumi Amado Procedure Date: 05/18/2019 : 1970 Age: 49 Gender: M Patient Type: Inpatient Procedure physician: Javier Duval MD Fellow: Referring Physician: Javier Duval MD ----- INDICATIONS: ST elevated myocardial infarction. ----- Procedures performed: # Left coronary angiography. # Right coronary angiography. # Left heart catheterization. # Percutaneous intervention on the 100% stenosis in the mid left circumflex. Balloon angioplasty. Interventional IVUS examination. Stent placement. ----- SUMMARY: 49y/o male with hx of HTN, HL, DM, smoking; here with acute chest pain about 2 hours prior to presentation. Inferior ST elevation no melanie on EMS EKG. IMPRESSIONS: 1. Acute occlusion of the mid-circumflex, culprit. 2. Mild CAD of the left main, LAD, OM1, and RCA systems. 3. No aortic stenosis. 4. Successful DRUG ELUTING STENT placed to the 100% occlusion of the mid-circumflex, with minimal residual stenosis. -IVUS used to appropriately size stent. RECOMMENDATIONS: 1. Admit to CCU. 2. Aspirin 81mg daily, lifelong. 3. Dual antiplatelet therapy for minimum 12 months. 4. TTE to evaluate LV systolic function. 5. Guideline directed medical therapy. 6. Continued aggressive risk factor modification, smoking cessation critical. ----- HISTORY: Risk factors: Current tobacco use. Hypertension. Diabetes mellitus; on therapy with oral hypoglycemics. Dyslipidemia. [[ LEFT]] ----- PROCEDURE IN DETAIL: Study status: Cardiac cath: emergent. Consent: The risks, benefits, and alternatives to the procedure and sedation wer e explained to the patient and informed consent was obtained. Fluorosco py time: Fluoroscopy time: 6.8 min. Fluoroscopy dose: Fluoroscopy dos e: 77.6 cGy. Location: Catheterization laboratory. PROCEDURE: 1. Initial setup. The patient was brought to the laboratory. A baseline ECG was recorded. Intravenous access was obtained. Surface ECG leads, blood pressure measurements, and pulse oximetric signals were monitored. 2. Skin preparation. The planned puncture sites were prepped and draped in the usual sterile manner. 3. Local anesthesia. 1% lidocaine was administered. 4. Right radial artery access. A 6Fr/10cm Glidesheath Slender sheath was advanced into the vessel. 5. Selective left coronary angiography. A 5Fr x 100cm JL3.5 catheter was advanced into the left coronary vessel ostium under fluoroscopic guidance. Contrast was injected. Images were obtained in multiple projections. 6. Selective right coronary angiography. A 5Fr x 100cm JR4 catheter was advanced into the right coronary vessel ostium under fluoroscopic guidance. Contrast was injected. Images were obtained in multiple projections. 7. ACT was 302 sec. 8. A stent was placed in the stenosis in the mid circumflex. See detailed description below (1st lesion intervention). 9. Right radial artery hemostasis. Mechanical compression was applied. 10. Left heart catheterization. A catheter was advanced across the aortic valve to the left ventricle under fluoroscopic guidance. 1st lesion intervention: Percutaneous intervention on the 100% stenosis in the mid left circumflex. 1. Guider placement: a 6Fr x 100cm Launcher EBU3.5 guiding catheter was placed. 2. A .014/190cm Hi-Torque Whisper MS wire was placed across the lesion. 3. Balloon angioplasty. A 2.5 mm (D) x 15 mm (L), Trek RX balloon was employed. The balloon was placed across the lesion and given a single inflation with a maximum inflation pressure of 12 angle. 4. Intravascular ultrasound evaluation, using a .014 [facility] [place] catheter. 5. Stent placement. A 2.5 mm (D) x 28 mm (L), Xience Marilia RX (drug eluting) stent was used. The stent was advanced across the lesion and deployed with a single inflation and a maximum pressure of 16 angle. STUDY COMPLETION: The estimated blood loss was 10 ml. All catheters inserted during the procedure were removed. The patient tolerated the pr ocedure well and was discharged from the lab. There were no complication s. Administered medications: BRILINTA (180 load), 180mg, PO, BRILINTA (180 load). Verapamil (Isoptin, Calan, Covera), 2.5mg, intra-arteriall y, VERAPAMIL. NITROGLYCERIN (IA), 200mcg, intra-arterially, NITROGLYCER IN (IA). Contrast: 1 (more content not included)... [facility] Work Phone: ECHO Complete 2D W Doppler W ColorOrdered By: Adebayo Sweeney on 05-19-2019 TRANSTHORACIC ECHOCARDIOGRAM PATIENT: Sumi Amado STUDY DATE: 05/19/2019 : 1970 AGE: 49 HT/WT: 182.9 cm (72 116.6 kg in) (256.5 lb) GENDER: M BP: 134 / 75 LOCATION: [facility] PATIENT Inpatient [facility] STATUS: *ORDERING PHYSICIAN: * Adebayo Sweeney *READING PHYSICIAN: * Doc, *RUBBER PRODUCTION MACHINE OPERATOR: * Therese Cameron CS,AE, PE, RVT ----- INDICATIONS: POST STEMI. ----- HISTORY: 1 STENT 05/18/19. ----- CONCLUSIONS SUMMARY: 1. Left ventricle: The cavity size is normal. Wall thickness is normal. Systolic function is by the biplane method of disks. The estimated ejection fraction is 52%. 2. Regional wall motion abnormality: Moderate hypokinesis of the mid inferior and mid inferolateral myocardium. 3. Right ventricle: The cavity size is normal. Wall thickness is normal. Systolic function is normal. 4. No significant valvular regurgitation or stenosis. Images or too limited for detect minor lesions. ----- STUDY DATA: Complete transthoracic echocardiogram. Procedure: Image quality was suboptimal. The study was technically limited due to poor acoustic window availability. Intravenous imaging enhancement (Definity) was administered to opacify the chamber. Definity lot #: [id number]. M-mode, complete 2D, complete spectral Doppler, and color flow Doppler images were acquired and archived for permanent storage and are available for subsequent review. Study status: Routine. Patient status: Inpatient. ----- FINDINGS LEFT VENTRICLE: The cavity size is normal. Wall thickness is normal. Systolic function is by the biplane method of disks. The estimated ejection fraction is 52%. Cardiac wall motion is otherwise normal. Regional wall motion abnormalities: Moderate hypokinesis of the mid inferior and mid inferolateral myocardium. RIGHT VENTRICLE: The cavity size is normal. Wall thickness is normal. Systolic function is normal. Right ventricular systolic pressure is within the normal range. VENTRICULAR SEPTUM: There is no evidence of a ventricular septal defect. LEFT ATRIUM: The atrium is normal in size. RIGHT ATRIUM: The atrium is normal in size. ATRIAL SEPTUM: Color Doppler shows no shunt. MITRAL VALVE: Structurally normal valve. Doppler: There is trivial, less than 1+ regurgitation. The peak diastolic gradient is 3 mm Hg. AORTIC VALVE: Not well visualized. Doppler: There is no regurgitation. TRICUSPID VALVE: Not well visualized. Structurally normal valve. Doppler: There is trivial, less than 1+ regurgitation. PULMONIC VALVE: Structurally normal valve. Doppler: There is trivial, less than 1+ regurgitation. AORTA: The aorta is poorly visualized and normal. PULMONARY ARTERY: Main pulmonary artery: Normal. PERICARDIUM: There is no pericardial effusion. SYSTEMIC VEINS: Inferior vena cava: The vessel is normal. The IVC collapses by greater than 50% with inspiration. ----- Measurements Value Reference Ascending aorta ID, A-P, S 3.2 cm --------- Ascending aorta ID/bsa, A-P, S 1.3 cm/m^2 --------- Left ventricle Value Reference LV ID, ED 5.6 cm 4.2 - 5.8 LV ID, ES (H) 4.1 cm 2.5 - 4.0 LV ID/bsa, ED 2.3 cm/m^2 2.2 - 3.0 LV ID/bsa, ES 1.7 cm/m^2 1.3 - 2.1 LV PW thickness, ED (H) 1.2 cm 0.6 - 1.0 LV PW/LV ID ratio, ED 0.22 --------- LV wall mass (H) 281 g 96 - 200 LV wall mass/bsa (H) 114 g/m^2 50 - 102 Stroke volume/bsa, 1-p A2C 37.6 ml/m^2 --------- LV end-diastolic volume, 1-p A4C 178 ml 69 - 185 LV end-systolic volume, 1-p A4C (H) 87 ml 22 - 78 LV end-diastolic volume, 2-p (H) 173 ml 62 - 150 LV end-systolic volume, 2-p (H) 83 ml 21 - 61 LV ejection fraction, 2-p 52 % 52 - 72 LV E/e', lateral 7.8 --------- LV E/e', medial 12.7 --------- LV E/e', average 9.6 --------- Ventr (more content not included)... [facility] Work Phone: Misha, [facility] Incoming Cardiology Results From [facility] - 05/19/2019 2:06 PM EST TRANSTHORACIC ECHOCARDIOGRAM PATIENT: Sumi Amado STUDY DATE: 05/19/2019 : 1970 AGE: 49 HT/WT: 182.9 cm (72 116.6 kg in) (256.5 lb) GENDER: M BP: 134 / 75 LOCATION: [facility] PATIENT Inpatient [facility] STATUS: *ORDERING PHYSICIAN: * Adebayo Sweeney *READING PHYSICIAN: * Doc, *RUBBER PRODUCTION MACHINE OPERATOR: * Therese Cameron RDCS,AE, PE, RVT ----- INDICATIONS: POST STEMI. ----- HISTORY: 1 STENT 05/18/19. ----- CONCLUSIONS SUMMARY: 1. Left ventricle: The cavity size is normal. Wall thickness is normal. Systolic function is by the biplane method of disks. The estimated ejection fraction is 52%. 2. Regional wall motion abnormality: Moderate hypokinesis of the mid inferior and mid inferolateral myocardium. 3. Right ventricle: The cavity size is normal. Wall thickness is normal. Systolic function is normal. 4. No significant valvular regurgitation or stenosis. Images or too limited for detect minor lesions. ----- STUDY DATA: Complete transthoracic echocardiogram. Procedure: Image quality was suboptimal. The study was technically limited due to poor acoustic window availability. Intravenous imaging enhancement (Definity) was administered to opacify the chamber. Definity lot #: [id number]. M-mode, complete 2D, complete spectral Doppler, and color flow Doppler images were acquired and archived for permanent storage and are available for subsequent review. Study status: Routine. Patient status: Inpatient. ----- FINDINGS LEFT VENTRICLE: The cavity size is normal. Wall thickness is normal. Systolic function is by the biplane method of disks. The estimated ejection fraction is 52%. Cardiac wall motion is otherwise normal. Regional wall motion abnormalities: Moderate hypokinesis of the mid inferior and mid inferolateral myocardium. RIGHT VENTRICLE: The cavity size is normal. Wall thickness is normal. Systolic function is normal. Right ventricular systolic pressure is within the normal range. VENTRICULAR SEPTUM: There is no evidence of a ventricular septal defect. LEFT ATRIUM: The atrium is normal in size. RIGHT ATRIUM: The atrium is normal in size. ATRIAL SEPTUM: Color Doppler shows no shunt. MITRAL VALVE: Structurally normal valve. Doppler: There is trivial, less than 1+ regurgitation. The peak diastolic gradient is 3 mm Hg. AORTIC VALVE: Not well visualized. Doppler: There is no regurgitation. TRICUSPID VALVE: Not well visualized. Structurally normal valve. Doppler: There is trivial, less than 1+ regurgitation. PULMONIC VALVE: Structurally normal valve. Doppler: There is trivial, less than 1+ regurgitation. AORTA: The aorta is poorly visualized and normal. PULMONARY ARTERY: Main pulmonary artery: Normal. PERICARDIUM: There is no pericardial effusion. SYSTEMIC VEINS: Inferior vena cava: The vessel is normal. The IVC collapses by greater than 50% with inspiration. ----- Measurements Value Reference Ascending aorta ID, A-P, S 3.2 cm --------- Ascending aorta ID/bsa, A-P, S 1.3 cm/m^2 --------- Left ventricle Value Reference LV ID, ED 5.6 cm 4.2 - 5.8 LV ID, ES (H) 4.1 cm 2.5 - 4.0 LV ID/bsa, ED 2.3 cm/m^2 2.2 - 3.0 LV ID/bsa, ES 1.7 cm/m^2 1.3 - 2.1 LV PW thickness, ED (H) 1.2 cm 0.6 - 1.0 LV PW/LV ID ratio, ED 0.22 --------- LV wall mass (H) 281 g 96 - 200 LV wall mass/bsa (H) 114 g/m^2 50 - 102 Stroke volume/bsa, 1-p A2C 37.6 ml/m^2 --------- LV end-diastolic volume, 1-p A4C 178 ml 69 - 185 LV end-systolic volume, 1-p A4C (H) 87 ml 22 - 78 LV end-diastolic volume, 2-p (H) 173 ml 62 - 150 LV end-systolic volume, 2-p (H) 83 ml 21 - 61 LV ejection fraction, 2-p 52 % 52 - 72 LV E/e', lateral 7.8 --------- LV E/e', medial 12.7 --------- LV E/e', average 9.6 --------- Ventricular septum Value Reference IVS thickness, ED (H) 1.2 cm 0.6 - 1.0 LVOT Value Reference LVOT ID, A-P 2.0 cm --------- LVOT mean velocity, S 0.4 m/sec --------- LVOT peak gradient, S 1 mm Hg --------- Stroke volume (SV), LVOT DP 45 ml --------- Stroke index (SV/bsa), LVOT DP 18 ml/m^2 --------- Left atrium Value Reference LA volume/bsa, ES, 2-p 18 ml/m^2 16 - 34 Mitral valve Value Reference Mitral E-wave peak velocity 0.8 m/sec --------- Mitral A-wave peak velocity 0.7 m/sec --------- Mitral deceleration time 192 ms --------- Mitral peak gradient, D 3 mm Hg --------- Mitral E/A ratio, (more content not included)... 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1970 Requested By: SANTIAGO FRIED Order Number: [id number] Reading MD: Adam Campos Measurements Intervals [place] Rate: 60 P: 46 ND: 182 QRS: -24 QRSD: 88 T: -25 QT: 421 QTc: 421 Interpretive Statements Sinus rhythm Borderline left axis deviation Compared to ECG 05/18/2019 21:13:05 ST (T wave) deviation no longer present Electronically Signed On 05-19-2019 14:43:47 EST by Adam Campos [employer] Work Phone: Misha, [facility] Incoming Cardiology Results From [facility] - 05/19/2019 2:44 PM EST [facility] Test Date: 2019-05-19 Pat Name: Sumi Amado [facility] Room[facility] 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1970 Requested By: SANTIAGO FRIED Order Number: [id number] Reading : Adam Campos Measurements Intervals [place] Rate: 60 P: 46 ND: 182 QRS: -24 QRSD: 88 T: -25 QT: 421 QTc: 421 Interpretive Statements Sinus rhythm Borderline left axis deviation Compared to ECG 05/18/2019 21:13:05 ST (T wave) deviation no longer present Electronically Signed On 05-19-2019 14:43:47 EST by Adam Campos [facility] Work Phone: Echo Complete w/wo Contrasto n 05-19-2019 Echo Complete w/wo Contrast Patient Name: SUMI AMADO Ultrasound Exam Date/Time 05/19/2019 10:09:49 EST Exam Echo Complete w/wo Contrast Ordering Physician MD DA, ADEBAYO Lemus Accession Number [id number] Reason For Exam post stemi Report TRANSTHORACIC ECHOCARDIOGRAM PATIENT: Sumi Amado STUDY DATE: 05/19/2019 : 1970 AGE: 49 HT/WT: 182.9 cm (72 116.6 kg in) (256.5 lb) GENDER: M BP: 134 / 75 LOCATION: [facility] PATIENT Inpatient [facility] STATUS: *ORDERING PHYSICIAN: * Adebayo Sweeney *READING PHYSICIAN: * Cash Check Card, *RUBBER PRODUCTION MACHINE OPERATOR: * Therese Cameron [facility],AE, PE, RVT ----- INDICATIONS: POST STEMI. ----- HISTORY: 1 STENT 05/18/19. ----- CONCLUSIONS SUMMARY: 1. Left ventricle: The cavity size is normal. Wall thickness is normal. Systolic function is by the biplane method of disks. The estimated ejection fraction is 52%. 2. Regional wall motion abnormality: Moderate hypokinesis of the mid inferior and mid inferolateral myocardium. 3. Right ventricle: The cavity size is normal. Wall thickness is normal. Systolic function is normal. 4. No significant valvular regurgitation or stenosis. Images or too limited for detect minor lesions. ----- STUDY DATA: Complete transthoracic echocardiogram. Procedure: Image quality was suboptimal. The study was technically limited due to poor acoustic window availability. Intravenous imaging enhancement (Definity) was administered to opacify the chamber. Definity lot #: [id number]. M-mode, complete 2D, complete spectral Doppler, and color flow Doppler images were acquired and archived for permanent storage and are available for subsequent review. Study status: Routine. Patient status: Inpatient. ----- FINDINGS LEFT VENTRICLE: The cavity size is normal. Wall thickness is normal. Systolic function is by the biplane method of disks. The estimated ejection fraction is 52%. Cardiac wall motion is otherwise normal. Regional wall motion abnormalities: Moderate hypokinesis of the mid inferior and mid inferolateral myocardium. RIGHT VENTRICLE: The cavity size is normal. Wall thickness is normal. Systolic function is normal. Right ventricular systolic pressure is within the normal range. VENTRICULAR SEPTUM: There is no evidence of a ventricular septal defect. LEFT ATRIUM: The atrium is normal in size. RIGHT ATRIUM: The atrium is normal in size. ATRIAL SEPTUM: Color Doppler shows no shunt. MITRAL VALVE: Structurally normal valve. Doppler: There is trivial, less than 1+ regurgitation. The peak diastolic gradient is 3 mm Hg. AORTIC VALVE: Not well visualized. Doppler: There is no regurgitation. TRICUSPID VALVE: Not well visualized. Structurally normal valve. Doppler: There is trivial, less than 1+ regurgitation. PULMONIC VALVE: Structurally normal valve. Doppler: There is trivial, less than 1+ regurgitation. AORTA: The aorta is poorly visualized and normal. PULMONARY ARTERY: Main pulmonary artery: Normal. PERICARDIUM: There is no pericardial effusion. SYSTEMIC VEINS: Inferior vena cava: The vessel is normal. The IVC collapses by greater than 50% with inspiration. ----- Measurements Value Reference Ascending aorta ID, A-P, S 3.2 cm --------- Ascending aorta ID/bsa, A-P, S 1.3 cm/m^2 --------- Left ventricle Value Reference LV ID, ED 5.6 cm 4.2 - 5.8 LV ID, ES (H) 4.1 cm 2.5 - 4.0 LV ID/bsa, ED 2.3 cm/m^2 2.2 - 3.0 LV ID/bsa, ES 1.7 cm/m^2 1.3 - 2.1 LV PW thickness, ED (H) 1.2 cm 0.6 - 1.0 LV PW/LV ID ratio, ED 0.22 --------- LV wall mass (H) 281 g 96 - 200 LV wall mass/bsa (H) 114 g/m^2 50 - 102 Stroke volume/bsa, 1-p A2C 37.6 ml/m^2 --------- LV end-diastolic volume, 1-p A4C 178 ml 69 - 185 LV end-systolic volume, 1-p A4C (H) 87 ml 22 - 78 LV end-diastolic volume, 2-p (H) 173 ml 62 - 150 LV end-systolic volume, 2-p (H) 83 ml 21 - 61 LV ejection fraction, 2-p 52 % 52 - 72 LV E/e', lateral 7.8 --------- LV E/e', medial 12.7 --------- LV E/e', average 9.6 --------- Ventricular septum Value Reference IVS thickness, ED (H) 1.2 cm 0.6 - 1.0 LVOT Value Reference LVOT ID, A-P 2.0 cm --------- LVOT mean velocity, S 0.4 m/sec --------- LVOT peak gradient, S 1 mm Hg --------- Stroke volume (SV), LVOT DP 45 ml --------- Stroke index (SV/bsa), LVOT DP 18 ml/m^2 --------- Left atrium Value Reference LA volume/bsa, ES, 2-p 18 ml/m^2 16 - 34 Mitral valve Value Reference Mitral E-wave peak velocity 0.8 m/sec --------- Mitral A-wave peak velocity 0.7 m/sec --------- Mitral deceleration time 192 ms --------- Mitral peak gradient, D 3 mm Hg --------- Mitral E/A ratio, peak 1.2 --------- Right atrium Value Reference RA area, ES, A4C 15 cm^2 10 - 18 Right ventricle Value Reference RV ID, minor axis, ED, A4C mid 3.2 cm 1.9 - 3.5 TAPSE, 2D (H) 3.7 cm 1.7 - 3.1 Legend: (L) and (H) tessa values outside specified reference range. 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1970 Requested By: SANTIAGO FRIED Order Number: [id number] Reading MD: Adam Campos Measurements Intervals [place] Rate: 74 P: 60 ND: 169 QRS: 11 QRSD: 90 T: 49 QT: 376 QTc: 418 Interpretive Statements Sinus rhythm ST elev, probable normal early repol pattern Electronically Signed On 05-19-2019 14:42:12 EST by Adam Andres [employer] Work Phone: Misha, [facility] Incoming Cardiology Results From [facility] - 05/19/2019 2:43 PM EST [facility] Test Date: 2019-05-18 Pat Name: Sumi Amado Department: [facility] Room: [facility] 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 Results may be 10%-15% lower than serum/plasma values. (CLIA ID [id number]) Performed By: #### H A1C2, LIPD2, TROPN, MBED3 #### [facility] [address] [place] [address] Glucose [Mass/Vol] 133 mg/dL High [address] [place] [address] Comment on above: Result Comment: Test performed by glucose meter. Results may be 10%-15% lower than serum/plasma values. (CLIA ID [id number]) Performed By: #### H A1C2, LIPD2, TROPN, MBED3 #### [facility] [address] [place] [address] Glucose [Mass/Vol] 161 mg/dL High [address] [facility] Comment on above: Result Comment: Test performed by glucose meter. Results may be 10%-15% lower than serum/plasma values. (CLIA ID [id number]) Performed By: #### H A1C2, LIPD2, TROPN, MBED3 #### [place] [address] [address] [place], [place] Glucose [Mass/Vol] 212 mg/dL High 70-100 [facility] Comment on above: Result Comment: Test performed by glucose meter. Results may be 10%-15% lower than serum/plasma values. (CLIA ID [id number]) Performed By: #### B GLU #### [place] [address] [place], [place] Hemogramon 05-19-2019 Erythrocyte distribution width (RBC) [Ratio] 14.1 % Normal 11.5-14.5 [facility] Comment on above: Performed By: #### H EMOG, CMP3, MG3, PHOS3 #### [place] [address] [address] [place], [place] Hematocrit (Bld) [Volume fraction] 45.6 % Normal 40.0-52.0 [facility] Comment on above: Performed By: #### H EMOG, CMP3, MG3, PHOS3 #### [place] [address] [place], [place] Hemoglobin (Bld) [Mass/Vol] 15.4 g/dL Normal 13.0-18.0 [facility] Comment on above: Performed By: #### H EMOG, CMP3, MG3, PHOS3 #### [place] [address] [address] [place], [place] MCH (RBC) [Entitic mass] 29.8 pg Normal 26.0-34.0 [facility] Comment on above: Performed By: #### H EMOG, CMP3, MG3, PHOS3 #### [place] [address] [address] [place], [place] MCHC (RBC) [Mass/Vol] 33.7 % Normal 32.0-36.0 [facility] Comment on above: Performed By: #### H EMOG, CMP3, MG3, PHOS3 #### [facility] [address] [place], [place] MCV (RBC) [Entitic vol] 88.5 fL Normal 80.0-98.0 [facility] Comment on above: Performed By: #### H EMOG, CMP3, MG3, PHOS3 #### [place] [address] [address] [place], [place] Platelet mean volume (Bld) [Entitic vol] 8.8 fL Normal 7.4-10.4 [facility] Comment on above: Performed By: #### H EMOG, CMP3, MG3, PHOS3 #### [place] [address] [address] [place], [place] Platelets (Bld) [#/Vol] 216 10*3/uL Normal 140-440 [facility] Comment on above: Performed By: #### H EMOG, CMP3, MG3, PHOS3 #### [place] [address] [address] [place], [place] RBC (Bld) [#/Vol] 5.15 10*6/uL Normal 4.40-5.90 [facility] Comment on above: Performed By: #### H EMOG, CMP3, MG3, PHOS3 #### [place] [address] [address] [place], [place] WBC (Bld) [#/Vol] 11.9 10*3/uL High 3.6-10.7 [facility] Comment on above: Performed By: #### H EMOG, CMP3, MG3, PHOS3 #### [place] [address] [address] [place], [place] Magnesiumon 05-19-2019 Magnesium [Mass/Vol] 2.0 mg/dL Normal 1.6-2.3 [facility] Comment on above: Performed By: #### H EMOG, CMP3, MG3, PHOS3 #### [place] [address] [address] [place], [place] MagnesiumOrdered By: Santiago Valdes on 05-19-2019 Magnesium [Mass/Vol] 2.0 mg/dL 1.6 - 2 .3 mg/dL [facility] Work Phone: No Panel InformationOrdered By: Santiago Fried on 05-19-2019 Interpretation and review of laboratory results Abnormal [facility] Work Phone: Test Performed by [facility], [place] [address] [employer] Work Phone: POCT GlucoseOrdered By: Joyce Salamanca on 05-19-2019 Glucose [Mass/Vol] 122 mg/dL High 70 - 100 mg/dL [facility] Work Phone: Comment on above: Test performed by gl ucose meter. Results may be 10%-15% lower than serum/plasma values. (CLIA ID [id number]) Interpretation and review of laboratory results Abnormal [facility] Work Phone: Test Performed by [facility], [place] [address] [employer] Work Phone: Glucose [Mass/Vol] 133 mg/dL High 70 - 100 mg/dL [facility] Work Phone: Comment on above: Test performed by gl ucose meter. Results may be 10%-15% lower than serum/plasma values. (CLIA ID [id number]) Interpretation and review of laboratory results Abnormal [facility] Work Phone: Test Performed by [facility], [place] [address] [facility] Work Phone: Glucose [Mass/Vol] 161 mg/dL High 70 - 100 mg/dL [facility] Work Phone: Comment on above: Test performed by gl ucose meter. Results may be 10%-15% lower than serum/plasma values. (CLIA ID [id number]) Interpretation and review of laboratory results Abnormal [facility] Work Phone: Test Performed by [facility], [place] [address] [employer] Work Phone: Phosphoruson 05-19-2019 Phosphate [Mass/Vol] 4.6 mg/dL High 2.5-4.5 [facility] Comment on above: Performed By: #### H EMOG, CMP3, MG3, PHOS3 #### [facility] [address] [place] [address] PhosphorusOrdered By: Santiago cardoza on 05-19-2019 Phosphate [Mass/Vol] 4.6 mg/dL High 2.5 - 4 .5 mg/dL [facility] Work Phone: CK MBOrdered By: Santiago Fried on 05-18-2019 CK [Catalytic activity/Vol] 293 U/L High 30 - 170 U/L [facility] Work Phone: CK.MB [Mass/Vol] 13.2 ng/mL High 0 - 2.4 ng/mL [facility] Work Phone: Comment on above: Both the CKMB and th e Relative Index must be abnormal for clinical significance. Relative Index 4.5 High [facility] Work Phone: CKMB / Relative Index(For ED ONLY)on 05-18-2019 CK.MB [Mass/Vol] 13.2 ng/mL High 0.0-2.4 [facility] Comment on above: Result Comment: Both the CKMB and the Relative Index must be abnormal for clinical significance. Performed By: #### H A1C2, LIPD2, TROPN, MBED3 #### [facility] [address] [place], [place] Relative Index 4.5 High 0.0-3.0 [facility] Comment on above: Performed By: #### H A1C2, LIPD2, TROPN, MBED3 #### [facility] [address] [place], [place] CK [Catalytic activity/Vol] 293 U/L High 30-170 [facility] Comment on above: Performed By: #### H A1C2, LIPD2, TROPN, MBED3 #### [facility] [address] 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 ----- Procedures performed: # Left coronary angiography. # Right coronary angiography. # Left heart catheterization. # Percutaneous intervention on the 100% stenosis in the mid left circumflex. Balloon angioplasty. Interventional IVUS examination. Stent placement. ----- SUMMARY: 49y/o male with hx of HTN, HL, DM, smoking; here with acute chest pain about 2 hours prior to presentation. Inferior ST elevation no melanie on EMS EKG. IMPRESSIONS: 1. Acute occlusion of the mid-circumflex, culprit. 2. Mild CAD of the left main, LAD, OM1, and RCA systems. 3. No aortic stenosis. 4. Successful DRUG ELUTING STENT placed to the 100% occlusion of the mid-circumflex, with minimal residual stenosis. -IVUS used to appropriately size stent. RECOMMENDATIONS: 1. Admit to CCU. 2. Aspirin 81mg daily, lifelong. 3. Dual antiplatelet therapy for minimum 12 months. 4. TTE to evaluate LV systolic function. 5. Guideline directed medical therapy. 6. Continued aggressive risk factor modification, smoking cessation critical. ----- HISTORY: Risk factors: Current tobacco use. Hypertension. Diabetes mellitus; on therapy with oral hypoglycemics. Dyslipidemia. [[ LEFT]] ----- PROCEDURE IN DETAIL: Study status: Cardiac cath: emergent. Consent: The risks, benefits, and alternatives to the procedure and sedation wer e explained to the patient and informed consent was obtained. Fluorosco py time: Fluoroscopy time: 6.8 min. Fluoroscopy dose: Fluoroscopy dos e: 77.6 cGy. Location: Catheterization laboratory. PROCEDURE: 1. Initial setup. The patient was brought to the laboratory. A baseline ECG was recorded. Intravenous access was obtained. Surface ECG leads, blood pressure measurements, and pulse oximetric signals were monitored. 2. Skin preparation. The planned puncture sites were prepped and draped in the usual sterile manner. 3. Local anesthesia. 1% lidocaine was administered. 4. Right radial artery access. A 6Fr/10cm Glidesheath Slender sheath was advanced into the vessel. 5. Selective left coronary angiography. A 5Fr x 100cm JL3.5 catheter was advanced into the left coronary vessel ostium under fluoroscopic guidance. Contrast was injected. Images were obtained in multiple projections. 6. Selective right coronary angiography. A 5Fr x 100cm JR4 catheter was advanced into the right coronary vessel ostium under fluoroscopic guidance. Contrast was injected. Images were obtained in multiple projections. 7. ACT was 302 sec. 8. A stent was placed in the stenosis in the mid circumflex. See detailed description below (1st lesion intervention). 9. Right radial artery hemostasis. Mechanical compression was applied. 10. Left heart catheterization. A catheter was advanced across the aortic valve to the left ventricle under fluoroscopic guidance. 1st lesion intervention: Percutaneous intervention on the 100% stenosis in the mid left circumflex. 1. Guider placement: a 6Fr x 100cm Launcher EBU3.5 guiding catheter was placed. 2. A .014/190cm Hi-Torque Whisper MS wire was placed across the lesion. 3. Balloon angioplasty. A 2.5 mm (D) x 15 mm (L), Trek RX balloon was employed. The balloon was placed across the lesion and given a single inflation with a maximum inflation pressure of 12 angle. 4. Intravascular ultrasound evaluation, using a .014 [place] catheter. 5. Stent placement. A 2.5 mm (D) x 28 mm (L), Xience Marilia RX (drug eluting) stent was used. The stent was advanced across the lesion and deployed with a single inflation and a maximum pressure of 16 angle. STUDY COMPLETION: The estimated blood loss was 10 ml. All catheters inserted during the procedure were removed. The patient tolerated the pr ocedure well and was discharged from the lab. There were no complication s. Administered medications: BRILINTA (180 load), 180mg, PO, BRILINTA (180 load). Verapamil (Isoptin, Calan, Covera), 2.5mg, intra-arteriall y, VERAPAMIL. NITROGLYCERIN (IA), 200mcg, intra-arterially, NITROGLYCER IN (IA). Contrast: 1. ISOVUE 300MG/CC 99 ml (total dose). [[LEFT] ] ----- CORONARY ARTERIES: The coronary circulation is right dominant. The left main bifurcates normally into the LAD and circumflex. The left ante rior descending gives rise to 1 diagonal and 1 septal. The left circumfl ex gives rise to 2 obtuse marginals. The right coronary gives rise to an AV node branch, 1 RV marginal, and 1 posterolateral. LAD: Minor luminal irregularities. Left circumflex: Mid-vessel lesion: The diagnostic study demonstrated a 100% stenosis. There is BLADE grade 0 flow (no flow) across the lesion . Stent placement was performed, resulting in an excellent angiogr aphic appearance (see 1st lesion intervention). Following intervention, there is a residual 0% stenosis with BLADE grade 3 flow (brisk flow). The re were no site complications. Right coronary: Minor luminal irregularities. AORTIC VALVE: There is no stenosis. HEMODYNAMICS: + ----+ + +Stage description +Condition1:Room Air - + + ----+ + +LV pressure s/d, ed +181/-11, 34, dP/xs=1496 mm Hg/s+ + ----+ + +Arterial pressure s/d (m)+171/88 (121) + + ----+ + Prepared and electronically signed by Javier Duval MD 05/19/2019 09:27 Final Dictated: 05/19/2019 9:28 am Dictating Physician: MD DUVAL PETER Signed Date and Time: 05/19/2019 9:27 am Signed by: MD DUVAL PETER Normal [facility] Hemoglobin A1Con 05-18-2019 HbA1c (Bld) [Mass fraction] 163 mg/dL Normal [facility] Comment on above: Performed By: #### H A1C2, LIPWYATT Price MBED3 #### [address] [address] HbA1c (Bld) [Mass fraction] 7.3 % High 4.0-5.7 [facility] [employer] Comment on above: Result Comment: --Hg bA1C levels may not be accurate in patients who have renal disease, received recent blood transfusions, are anemic, or who have dyshemoglobinemia. Performed By: #### H A1C2, LIPAlbert, JAMESON SCHNEIDERED3 #### [facility] [employer] [address] [place] [phone] Hemoglobin [id number] By: Ronnie Fried on 05-18-2019 HbA1c (Bld) [Mass fraction] 7.3 % High 4 - 5.7 % [facility] Work Phone: Comment on above: --HgbA1C levels may not be accurate in patients who have renal disease, received recent blood transfusions, are anemic, or who have dyshemoglobinemia. Interpretation and review of laboratory results Abnormal [facility] Work Phone: Magnesium [Mass/Vol] 163 mg/dL [facility] Work Phone: Test Performed by [facility], [address] [place] [address] [facility] Work Phone: Lipid Panelon 05-18-2019 Cholesterol in HDL [Mass/Vol] 29 mg/dL Low 40-60 [facility] Comment on above: Performed By: #### H A1C2, LIPD2, TROPN, MBED3 #### [facility] [address] [place] [address] Cholesterol.total/Choles terol in HDL [Mass ratio] 4 Normal [facility] Comment on above: Result Comment: Ref Range: < 3 Low Risk for CHD 3-6 Mod Risk for CHD > 6 High Risk for CHD Performed By: #### H A1C2, LIPD2, TROPN, MBED3 #### [facility] [address] [place], [place] Protein [Mass/Vol] 79 mg/dL Normal <100 [facility] Comment on above: Performed By: #### H A1C2, LIPD2, TROPN, MBED3 #### [place] [address] [address] [place], [place] Cholesterol [Mass/Vol] 123 mg/dL Normal < 200 [facility] Comment on above: Performed By: #### H A1C2, LIPD2, TROPN, MBED3 #### [place] [address] [address] [place], [place] Triglyceride [Mass/Vol] 75 mg/dL Normal <150 [facility] Comment on above: Performed By: #### H A1C2, LIPD2, TROPN, MBED3 #### [place] [address] [address] [place], [place] Lipid panelOrdered By: Santiago Fried on 05-18-2019 Cholesterol [Mass/Vol] 123 mg/dL <200 [facility] Work Phone: Cholesterol in HDL [Mass/Vol] 29 mg/dL Low 40 - 60 mg/dL [facility] Work Phone: Cholesterol in LDL [Mass/Vol] 79 mg/dL <100 [facility] Work Phone: Cholesterol.total/Choles terol in HDL [Mass ratio] 4 {ratio} [facility] Work Phone: Comment on above: Ref Range: < 3 Low Risk for CHD 3-6 Mod Risk for CHD > 6 High Risk for CHD Interpretation and review of laboratory results Abnormal [facility] Work Phone: Triglyceride [Mass/Vol] 75 mg/dL <150 [facility] Work Phone: Test Performed by [employer], [address] [place] [address] [facility] Work Phone: No Panel InformationOrdered By: Santiago Fried on 05-18-2019 Interpretation and review of laboratory results Abnormal [facility] Work Phone: Test Performed by [employer], [address] [place] [address] [facility] Work Phone: POCT GlucoseOrdered By: Tha Duval on 05-18-2019 Glucose [Mass/Vol] 212 mg/dL High 70 - 100 mg/dL [facility] Work Phone: Comment on above: Test performed by gl ucose meter. Results may be 10%-15% lower than serum/plasma values. (CLIA ID [id number]) Interpretation and review of laboratory results Abnormal [facility] Work Phone: Test Performed by [employer], [address] [place] [address] [facility] Work Phone: TroponinOrdered By: Santiago Torres and on 05-18-2019 Interpretation and review of laboratory results Abnormal [facility] Work Phone: Troponin I.cardiac [Mass/Vol] 2.800 ng/mL High 0 - 0.034 ng/mL [facility] Work Phone: Comment on above: . Test Performed by [employer], [facility] [place] [address] [facility] Work Phone: Troponin I.cardiac [Mass/Vol] 2.950 ng/mL High 0 - 0.034 ng/mL [facility] Work Phone: Comment on above: . Troponin Ion 05-18-2019 Troponin I.cardiac [Mass/Vol] 2.950 ng/mL High 0.000-0.034 [employer] Comment on above: Result Comment: . Performed By: #### H A1C2, LIPD2, TROPN, MBED3 #### [facility] [address] [place] [address] Troponin I.cardiac [Mass/Vol] 2.800 ng/mL High 0.000-0.034 [facility] Comment on above: Result Comment: . Performed By: #### T ROPN #### [facility] [address] [place] [address] Albumin Urine Randomon 03-03 Albumin Urine Random <12.0 Normal 0.0-23.0 [facility] Comment on above: Performed By: #### T SH #### [facility] [address] Basic Metabolic Panlon 03-03 Anion gap [Moles/Vol] 10 mmol/L Normal 9-18 [facility] Comment on above: Performed By: #### C BC, BMP, MG1 #### [facility] [address] [place] [address] Calcium [Mass/Vol] 8.4 mg/dL Low 8.5-10.2 [facility] Comment on above: Performed By: #### C BC, BMP, MG1 #### [facility] [address] [place], [place] [id number] Chloride [Moles/Vol] 105 mmol/L Normal 97-105 [facility] Comment on above: Performed By: #### C BC, BMP, MG1 #### [facility] [address] [place] [address] CO2 [Moles/Vol] 22 mmol/L Normal 22-30 [facility] Comment on above: Performed By: #### C BC, BMP, MG1 #### [facility] [address] Creatinine [Mass/Vol] 0.69 mg/dL Low 0.73-1.22 [facility] Comment on above: Performed By: #### C BC, BMP, MG1 #### [facility] [address] [place] [address] eGFR- Amer. >60 Normal [facility] Comment on above: Performed By: #### C BC, BMP, MG1 #### [facility] [address] [phone] GFR/1.73 sq M predicted among non-blacks MDRD (S/P/Bld) [Vol rate/Area] mL/min/{1.73_m2} Normal [facility] Comment on above: Result Comment: eGFR (Estimated GFR) Units of measure: mL/min/1.73 meters squared eGFR is derived from the reexpressed MDRD Study equation using the following parameters: serum creatinine, age, gender and race. The creatinine assay has been calibrated to be traceable to IDMS. An eGFR <60 mL/min/1.73m2 for >3 months is consistent with chronic kidney disease. Refer to KDOQI guidelines for clinical interpretation. In patients with unstable renal function, e.g. those with acute kidney injury, the eGFR may not accurately reflect actual GFR. Performed By: #### C DIRK CHISHOLM MG1 #### [facility] [address] [place] [address] Glucose [Mass/Vol] 210 mg/dL High 74-99 [facility] Comment on above: Result Comment: The [place] Diabetes Association (ADA) provides guidance for cutoff values for fasting glucose and random glucose. The ADA defines fasting as no caloric intake for at least 8 hours. Fasting plasma glucose results between 100 to 125 mg/dL indicate increased risk for diabetes (prediabetes). Fasting plasma glucose results greater than or equal to 126 mg/dL meet the criteria for diagnosis of diabetes. In the absence of unequivocal hyperglycemia, results should be confirmed by repeat testing. In a patient with classic symptoms of hyperglycemia or hyperglycemic crisis, random plasma glucose results greater than or equal to 200 mg/dL meet the criteria for diagnosis of diabetes. Reference: Standards of Medical Care in Diabetes 2016, [place] Diabetes Association. Diabetes Care. 2016.39(Suppl 1). Performed By: #### C DIRK CHISHOLM, MG1 #### [facility] [address] [facility] [phone] Potassium [Moles/Vol] 4.4 mmol/L Normal 3.7-5.1 [facility] Comment on above: Performed By: #### C DIRK CHISHOLM, MG1 #### [facility] [address] [facility] [phone] Sodium [Moles/Vol] 137 mmol/L Normal 136-144 [facility] Comment on above: Performed By: #### C DIRK CHISHOLM, MG1 #### [facility] [address] [facility] [phone] Urea nitrogen [Mass/Vol] 10 mg/dL Normal - [facility] Comment on above: Performed By: #### C DIRK CHISHOLM MG1 #### [facility] [address] [facility] [phone] CASE MANAGEMon 03-03-2019 CASE MANAGEM HNO ID: [id number] Author: Hilda (Rn) CARLOS ENRIQUE Brown Service: Care Management Author Type: Registered Nurse Type: Care Mgt Progress Note Filed: 03/03/2019 2:54 PM Note Text: CARE MANAGEMENT DISCHARGE NOTE SERVICE DATE: 03/03/2019 SERVICE TIME: 2:50 PM LOS: 0 days Admission Date: 03/02/2019 DISCHARGE ARRANGEMENT (list agency and phone number) Home Provider: KEITH Phone: KEITH CAREGIVER ASSESSMENT: Caregiver is ready, willing and able to meet the patient's needs as recommended by the inter-professional team? No Caregiver Needed Patient's transition needs and plan for meeting these needs: home with self care Does the patient have an acute stroke diagnosis, or has the patient had a stroke during this admission? No HANDOFF COMMUNICATION: bedside nurse, patient and . TRANSPORTATION ARRANGEMENTS: Car ADDITIONAL CONTACT RESOURCES: KEITH CM met with pt and at bedside to discuss discharge written. Pt going home with . [facility] brochure given to assist pt in getting a new PCP. Reviewed new prescriptions and discussed [employer] to help with medication coverage until pt can get on insurance plan at work. Pt denies other needs for discharge. SIGNATURE: Hilda Brown RN PATIENT NAME: Sumi Amado DATE: March 03, 2019 TIME: 2:49 PM PAGER/CONTACT #: [phone] Normal [facility] CBCon 03-03-2019 Erythrocyte distribution width (RBC) [Ratio] 13.5 % Normal 11.5-15.0 [facility] Comment on above: Performed By: #### C DIRK CHISHOLM, MG1 #### [facility] [address] [facility] [phone] Hematocrit (Bld) [Volume fraction] 47.3 % Normal 39.0-51.0 [facility] Comment on above: Performed By: #### C DIRK CHISHOLM, MG1 #### [facility] [address] [facility] [phone] Hemoglobin (Bld) [Mass/Vol] 15.6 g/dL Normal 13.0-17.0 [facility] Comment on above: Performed By: #### DIRK BRADEN, MG1 #### [facility] [address] [facility] [phone] MCH (RBC) [Entitic mass] 28.9 pG Normal 26.0-34.0 [facility] Comment on above: Performed By: #### C DIRK CHISHOLM, MG1 #### [facility] [address] [facility] [phone] MCHC (RBC) [Mass/Vol] 33.0 g/dL Normal 30.5-36.0 [facility] Comment on above: Performed By: #### C DIRK CHISHOLM, MG1 #### [facility] [address] [facility] [phone] MCV (RBC) [Entitic vol] 87.8 fL Normal 80.0-100.0 [facility] Comment on above: Performed By: #### DIRK BRADEN, MG1 #### [facility] [address] [facility] [phone] Platelet mean volume (Bld) [Entitic vol] 10.9 fL Normal 9.0-12.7 [facility] Comment on above: Performed By: #### C DIRK CHISHOLM, MG1 #### [facility] [address] [facility] [phone] Platelets (Bld) [#/Vol] 205 10*3/uL Normal 150-400 [facility] Comment on above: Performed By: #### C DIRK CHISHOLM, MG1 #### [facility] [address] [facility] [phone] RBC (Bld) [#/Vol] 5.39 10*6/uL Normal 4.20-6.00 [facility] Comment on above: Performed By: #### DIRK BRADEN, MG1 #### [facility] [address] [facility] [phone] WBC (Bld) [#/Vol] 8.71 10*3/uL Normal 3.70-11.00 [facility] Comment on above: Performed By: #### DIRK BRADEN, MG1 #### [facility] [address] [facility] [phone] CNCOon 03-03-2019 CNCO Letter Text Normal [facility] Creatinine,Urine,Ranon 03-03 Creatinine,Urine,Ran 50.8 mg/dL Normal 20-300 [facility] Comment on above: Performed By: #### T SH #### [facility] [address] [place] [phone] Magnesiumon 03-03-2019 Magnesium [Mass/Vol] 1.8 mg/dL Normal 1.7-2.3 [facility] Comment on above: Performed By: #### C BC, BMP, MG1 #### [facility] [address] [place] [phone] NURSING PROGon 03-03-2019 NURSING PROG HNO ID: [id number] Author: Melanie AquinoRn) CARLOS ENRIQUE Blake Service: Nursing Author Type: Registered Nurse Type: Nursing Progress Note Filed: 03/03/2019 1:12 PM Note Text: Nursing Progress Note Patient Name: Sumi Amado [facility]-0261- 1 __ Daily Note: 0743 Bedside report from CARLOS ENRIQUE Parkinson. Patient denies pain or discomfort at this time. 0801 Telemetry monitoring shows SB, HR 52. 0815 BG 197, 1 unit Humalog administered. AIC 10.4. 0900 Patient ambulates to bathroom independently without difficulties. Chest pain resolved. 1115 Patient remains SB on tele, HR 50's. Denies chest pain or discomfort at this time. Diabetes Education provided by CARLOS ENRIQUE. Xavi ybarra. PO metformin and PO glipizide ordered as new medications. This note was completed by: Melanie Blake RN Normal [facility] Troponin Ton 03-03-2019 Troponin T.cardiac [Mass/Vol] ug/L Normal 0.000-0.029 [facility] Comment on above: Performed By: #### T NT #### [facility] [address] [facility] [phone] ALLIED HEALTHon 03-02-2019 ALLIED HEALTH HNO ID: [id number] Author: XAVI Chapa (Ct) Service: ? Author Type: Clinical Store Clerk Cashier Type: Allied Health Filed: 03/02/2019 5:56 AM Note Text: Radiology Service Progress Note PATIENT NAME: Sumi Amado DATE OF SERVICE: March 02, 2019 TIME: 5:55 AM PATIENT IDENTITY VERIFICATION COMPLETED USING TWO (2) METHODS: Name and Date of confirmed by patient verbally. PATIENT GENDER DATA: Male PATIENT RELEVANT IMPLANT DATA REVIEWED: Not Applicable RADIOLOGY DEPARTMENT: General X-ray: Exam(s) Completed: Chest X-Ray PERIPHERAL IV DATA: Not applicable SIGNED BY: XAVI Chapa March 02, 2019 5:55 AM Normal [facility] CASE MGT INIT ASSESon 2018 CASE MGT INIT [facility] HNO ID: [id number] Author: Hilda (Rn) CARLOS ENRIQUE Brown Service: Care Management Author Type: Registered Nurse Type: Care Mgt Initial Assessment Filed: 03/02/2019 4:35 PM Note Text: CARE MANAGEMENT: ASSESSMENT AND DISCHARGE PLAN SERVICE DATE: 03/02/2019 SERVICE TIME: 4:24 PM PRIMARY CARE PHYSICIAN: No primary care provider on file. 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 Filled out financial assistance papers in ED Health Issues Impacting Discharge Plan: work up in process for new diagnoses, likely has DM, HTN, HLD Last Discharge Date: N/A Is this Within the Past 30 days? No Advance Directive: Health Literacy: 1. How often do you need to have someone help you when you read instructions, pamphlets, or other written material from your doctor or pharmacy? Never - 1 2. How confident are you filling out medical forms by yourself? Extremely - 1 If Patient scores > 3 on either question, the following interventions were put into place: Patient did not score > 3 FUNCTIONAL AND COGNITIVE/BEHAVIORAL PRIOR TO ADMISSION: Baseline Mental Status: Alert AND Oriented, Person, Place , Time and Situation Functional Status: Independent Does Patient Currently Receive Any Community Services or Home Care? None Equipment Prior to Admission: None Has the Patient Been in a Correction Facility in the Past 30 days? No SOCIAL: Living Arrangement: Home Lives With: Spouse and Son Financial Resources: Employed: [employer] Primary Contact: Extended Emergency Contact Information Primary Emergency Contact: Megan Amado Address: [address] [place] [address] Mobile Relation: Spouse Supportive: Yes Other Important Patient Contacts: None Caregiver Assessment: Caregiver is ready, willing and able to meet the patient's needs as recommended by the inter-professional team? No Caregiver Needed Patient's transition needs and plan for meeting these needs: home with self care Does the patient have an acute stroke diagnosis, or has the patient had a stroke during this admission? No Medication Adherence: I am convinced of the importance of my prescription medication: Agree mostly - 0 I worry that my prescription medication will do more harm than good to me Disagree mostly - 0 I feel financially burdened by my ipl-ci-pqhenl expenses for my prescription medication: Agree somewhat - 0 Patient is categorized as low risk < 2 Patient has not been on any medications prior to admission. Are you interested in bedside delivery of your medications? No Will use a pharmacy in [place], needs to discuss with which one. Food Concerns: In the Last Month, Have You had Trouble Getting Food? No trouble getting food During the Last Month, Have You Worried Whether Your Food Would Run Out Before You Had Enough Money to Buy More? No Is the Patient Psychosocially Complex? No ASSESSMENT AND PLAN: Medical Needs: work up of new medical problems Psychosocial Needs: None FREEDOM OF CHOICE EXPLAINED: Yes discussed with patient. POTENTIAL TRANSITION PLANS Home To Be Determined CM at bedside with patient, introduced self and role. Pt is 48 y/o, Admit Dx chest pain. Pt presented to ED this am with chest heaviness that radiated to left arm, clamminess and shortness of breath. On RA. Pt is AANDO x 4, IPTA. or son will transport at discharge. CM instructed patient that CM Team will remain available for any dc needs. Patient had no further questions/concern voiced at this time. SIGNATURE: Hilda Brown RN PATIENT NAME: Sumi Amado DATE: March 02, 2019 TIME: 4:24 PM PAGER/CONTACT #: [phone] [facility] CONSULTon 03-02-2019 CONSULT HNO ID: [id number] Author: Jose Alberto Hdz DO Service: Cardiovascular Medicine Author Type: Physician Type: Consults Filed: 03/02/2019 1:49 PM Note Text: CONSULT NOTE SERVICE DATE: 03/02/2019 SERVICE TIME: 1100 Consult Cardiology (PHYSICIAN CONSULT) Consult performed by: Jose Alberto Hdz DO Consult ordered by: Ignacio Hernandez Reason for consult: Chest discomfort Assessment/Recommendat ions: 1. Chest discomfort 2. Probable new onset diabetes 3. Probable new onset hypertension 4. Possible hyperlipidemia 5. Tobaccoism?cessation discussed and patient warned Recommendations: The patient has been observed without repeat symptoms as ruled out for an acute cardiac event. We will place him on optimal medical therapy which he should go home on an should probably more likely continue as his long-term clinical course dictates. We discussed with him at length dietary and lifestyle modification as well as the probability of his multiple medical comorbidities. He was warned as to reverse consequences of continuing tobacco abuse. He appears stable from a cardiovascular standpoint for discharge. We will arrange outpatient noninvasive stress testing with a stress echocardiogram. We will have him follow-up briefly in the office thereafter to review with our nurse practitioner. Thank you for the pleasure and privilege of allowing us to participate in his care along with you. 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 While on the job he developed substernal chest discomfort described as a pressure sensation with radiation up to his left shoulder. He had no other associated symptoms. He has not had symptoms prior. He remains active in the outpatient setting. He is and lives at home with his . He has 2 grown sons ages 22 and 24 which are described as healthy. He has not had a full physical exam for general health and quite some time. He was found to more likely be new onset diabetic as well as hypertensive in the emergency room. He denies dyspnea, exercise intolerance, orthopnea, paroxysmal nocturnal dyspnea, palpations, near-syncope or syncope. Cardiac risk factors: Age, gender, probable hypertension, probable diabetes, hyperlipidemia?, Tobacco abuse FUNCTIONAL STATUS: Independent History reviewed. No pertinent past medical history. History reviewed. No pertinent surgical history. No family history on file. Social History Tobacco Use - Smoking status: Current Every Day Smoker - Smokeless tobacco: Never Used Substance Use Topics - Alcohol use: Not Currently - Drug use: Not on file Medications Prior to Admission: ascorbic acid, vitamin C, (VITAMIN C) 500 mg tablet Take 500 mg by mouth once daily. Disp: Rfl: Current Facility-Administered Medications Medication Dose Route Frequency - enoxaparin 40 mg injection (LOVENOX) 40 mg SUBCUTANEOUS DAILY - dextrose 40 % 15 g 15 g ORAL PRN Or - glucagon 1 mg injection (GLUCAGEN) 1 mg INTRAMUSCULAR PRN Or - dextrose 50 % 12.5 g injection 12.5 g INTRAVENOUS PRN - insulin lispro injection (rapid acting) (HumaLOG) SUBCUTANEOUS w MEALS - insulin lispro injection (rapid acting) (HumaLOG) SUBCUTANEOUS AT BEDTIME - aspirin, enteric coated 81 mg tab(s) 81 mg ORAL DAILY - metoprolol tartrate (short acting) 25 mg tab(s) (LOPRESSOR) 25 mg ORAL q 12 H - lisinopril 2.5 mg tab(s) (ZESTRIL, PRINIVIL) 2.5 mg ORAL DAILY - atorvastatin 40 mg tab(s) (LIPITOR) 40 mg ORAL DAILY Allergies As of Date: 03/02/2019 (No Known Allergies) Fully Assessed 03/02/2019 COMPLETE REVIEW OF SYSTEMS: Review of Systems Constitutional: Negative for activity change and appetite change. HENT: Negative for ear pain and tinnitus. Eyes: Negative for pain and visual disturbance. Respiratory: Negative for apnea, cough, chest tightness, shortness of breath and dyspnea. Cardiovascular: Positive for chest pain (resolved). Negative for palpitations, leg swelling and CHF. Gastrointestinal: Negative for abdominal pain, blood in stool, nausea and vomiting. Endocrine: Negative for cold intolerance and heat intolerance. Genitourinary: Negative for dysuria and hematuria. Musculoskeletal: Negative for arthralgias and myalgias. Skin: Negative for pallor and rash. Allergic/Immunologic: Negative for environmental allergies and food allergies. Neurological: Negative for dizziness, syncope and light-headedness. Hematological: Negative for bleeding / clotting disorders . Does not bruise/bleed easily. Psychiatric/Behavioral : Negative for confusion. The patient is not nervous/anxious. Objective Physical Exam Constitutional: He is oriented to person, place, and time. He appears well-developed and well-nourished. No distress. HENT: Head: Normocephalic and atraumatic. Nose: Nose normal. Eyes: Pupils are equal, round, and reactive to light. Conjunctivae and EOM are normal. Neck: Normal range of motion. Neck supple. No JVD present. No tracheal deviation present. Cardiovascular: Normal rate, regular rhythm, S1 normal, S2 normal and normal heart sounds. Exam reveals no gallop and no friction rub. No murmur heard. Pulmonary/Chest: Effort normal and breath sounds normal. No respiratory distress. He exhibits no tenderness. Abdominal: Soft. Bowel sounds are normal. He exhibits no distension. There is no tenderness. Musculoskeletal: Normal range of motion. He exhibits no edema, tenderness or deformity. Neurological: He is alert and oriented to person, place, and time. No cranial nerve deficit. Skin: Skin is warm and dry. No rash noted. He is not diaphoretic. No erythema. Psychiatric: He has a normal mood and affect. His behavior is normal. Judgment and thought content normal. Patient Vitals for the past 24 hrs: BP Temp Temp src Pulse Resp SpO2 Height Weight 03/02/19 1149 152/79 37.1 ?C (98.8 ?F) Oral (!) 59 21 96 % ? ? 03/02/19 0823 151/81 36.8 ?C (98.2 ?F) Oral 71 20 97 % ? ? 03/02/19 0813 ? 182.9 cm (6') 114.4 kg (252 lb 4.8 oz) 03/02/19 0740 136/77 ? ? 63 20 99 % ? ? 03/02/19 0655 143/77 ? ? 68 18 100 % ? ? 03/02/19 0630 170/76 ? ? 82 18 100 % ? ? 03/02/19 0615 138/73 ? ? 68 18 100 % ? ? 03/02/19 0600 144/72 ? ? 74 18 98 % ? ? 03/02/19 0556 166/76 ? ? 78 18 99 % ? ? 03/02/19 0532 172/88 36.8 ?C (98.2 ?F) Oral 83 20 100 % 182.9 cm (6') 113.7 kg (250 lb 9.6 oz) Body mass index is 34.22 kg/m?. DATA: Diagnostic tests reviewed for today's visit: Most recent labs and imaging results. SIGNATURE: Jose Alberto Hdz DO PATIENT NAME: Sumi Amado DATE: March 02, 2019 TIME: 1:40 PM PAGER: [phone] [facility] ECG COMPLETEon 03-02-2019 ECG COMPLETE NAME : JOEY AMADO PID : [id number] : 1970 Gender : Male Race : ORD : [id number] Procedure Date : Mar 02 2019 05:35:01 Edit Date : Mar 15 2019 10:21:42 Diagnosis:NORMAL SINUS RHYTHM NORMAL ECG Confirmed by MD ARINA, JOSE D ([id number]), metropolitan editor ROXANNE HUYNH ([id number]) on 03/15/2019 10:21:38 AM Ventricular Rate : 86 BPM Atrial Rate : 86 BPM P-R Interval : 168 ms QRS Duration : 90 ms Q-T Interval : 378 ms QTC Calculation(Bazett) : 452 ms P [place] : 73 degrees R [place] : -8 degrees T [place] : 29 degrees Test Reason : Chest Discomfort Location : 1 : ER 04 Overread By : MD SANTA ALEXANDER Edited By : ROXANNE HUYNH Referred By : System,System Acquired by : , [facility] ED NOTEon 03-02-2019 ED NOTE HNO ID: [id number] Author: Anna Thurston DO Service: Emergency Medicine Author Type: Physician Type: ED Notes Filed: 03/02/2019 7:34 AM Note Text: ED Attending Continuation of Care Note March 02, 2019 7:30 AM Sumi Amado was endorsed to me by Dr. Santa. The patient initially presented to the ED for: chest pain. Signout note reviewed Diagnostics were reviewed. Thomas findings: HST 7 and 7 New Physical Exam findings: pt in NAD. Chest pain free. VSS. Clinical Course: pt was seen by the night physician. He developed chest pain earlier this morning when he was in his truck. He was pressure is midsternal laceration to left arm and shoulder. He felt clammy and short of breath. He has a few cardiac risk factors, including hyperlipidemia, tobacco use, family history of CAD, probable hypertension and obesity. His EKG is unremarkable. Both high sensitivity troponins are 7. This actually puts him at low risk for major adverse cardiac event at [address] Santa would like the pt to be admitted for extended rule out. Dr. Fabienne Hernandez is innovation manager for unassigned patients. He will admit. He did ask that I contact cardiology. Dr. Hdz of cardiology is aware of admission. Plan: admit for observation. Anna Thurston, DO [facility] ED NOTE HNO ID: [id number] Author: Radha AquinoRn) CARLOS ENRIQUE Helton Service: ? Author Type: Registered Nurse Type: ED Notes Filed: 03/02/2019 7:08 AM Note Text: report given to Kristina [facility] ED NOTE HNO ID: [id number] Author: Radha Mercer) CARLOS ENRIQUE Helton Service: ? Author Type: Registered Nurse Type: ED Notes Filed: 03/02/2019 6:43 AM Note Text: repeat trop drawn and sent to LAB. [facility] ED NOTE HNO ID: [id number] Author: Radha Mercer) CARLOS ENRIQUE Helton Service: ? Author Type: Registered Nurse Type: ED Notes Filed: 03/02/2019 6:43 AM Note Text: Dr. PRATT in room to talk with pt and [facility] ED NOTE HNO ID: [id number] Author: Radha Mercer) CARLOS ENRIQUE Helton Service: ? Author Type: Registered Nurse Type: ED Notes Filed: 03/02/2019 6:27 AM Note Text: Dr. PRATT in room to talk with pt. regarding test results. [facility] ED NOTE HNO ID: [id number] Author: Radha Mercer) CARLOS ENRIQUE Helton Service: ? Author Type: Registered Nurse Type: ED Notes Filed: 03/02/2019 5:51 AM Note Text: xr @ bedside. [facility] ED NOTE HNO ID: [id number] Author: Radha Mercer) CARLOS ENRIQUE Helton Service: ? Author Type: Registered Nurse Type: ED Notes Filed: 03/02/2019 5:56 AM Note Text: dr PRATT in room to see pt [facility] ED NOTE HNO ID: [id number] Author: Radha (Rn) CARLOS ENRIQUE Helton Service: ? Author Type: Registered Nurse Type: ED Notes Filed: 03/02/2019 5:35 AM Note Text: pt was just riding in the car and felt sudden pain in chest/left arm and started having SOB and sweating. [facility] ED PROV NOTEon 03-02-2019 ED PROV NOTE HNO ID: [id number] Author: Jose D Santa MD Service: ? Author Type: Physician Type: ED Provider Notes Filed: 03/02/2019 6:32 AM Note Text: ED Provider Note Patient Name: Sumi Amado SERVICE DATE: 03/02/19 History Patient presents with: Chest Pain Shortness of Breath History provided by: Patient park interpreter used: No Chest Pain Pain location: Substernal area Pain quality: pressure Pain radiates to: L shoulder and L arm Pain severity: No pain Onset quality: Sudden Duration: 30 minutes Timing: Constant Progression: Resolved Chronicity: New Context: at rest Context: not breathing, not drug use, not eating, not lifting, not movement, not raising an arm, not stress and not trauma Relieved by: Nothing Worsened by: Nothing Ineffective treatments: None tried Associated symptoms: shortness of breath Associated symptoms: no abdominal pain, no AICD problem, no altered mental status, no anorexia, no anxiety, no back pain, no claudication, no cough, no diaphoresis, no dizziness, no dysphagia, no fatigue, no fever, no headache, no heartburn, no lower extremity edema, no nausea, no near-syncope, no numbness, no orthopnea, no palpitations, no PND, no syncope, no vomiting and no weakness Risk factors: high cholesterol, hypertension, male sex, obesity and smoking Risk factors: no aortic disease, no control, no coronary artery disease, no diabetes mellitus and no Stewart-Danlos syndrome History reviewed. No pertinent past medical history. History reviewed. No pertinent surgical history. No family history on file. Social History Tobacco Use - Smoking status: Current Every Day Smoker - Smokeless tobacco: Never Used Substance and Sexual Activity - Alcohol use: Not Currently - Drug use: Not on file - Sexual activity: Not on file ALLERGIES No Known Allergies Review of Systems Constitutional: Negative. Negative for diaphoresis, fatigue and fever. HENT: Negative. Negative for trouble swallowing. Eyes: Negative. Respiratory: Positive for shortness of breath. Negative for cough. Cardiovascular: Positive for chest pain. Negative for palpitations, orthopnea, claudication, syncope, PND and near-syncope. Gastrointestinal: Negative. Negative for abdominal pain, anorexia, heartburn, nausea and vomiting. Genitourinary: Negative. Musculoskeletal: Negative. Negative for back pain. Skin: Negative. Neurological: Negative. Negative for dizziness, weakness, numbness and headaches. Psychiatric/Behavioral : Negative. Physical Exam BP 172/88 Pulse 83 Temp (Src) 98.2 (Oral) Resp 20 Ht 6' 0 (1.83m) Wt 250 lb 9.6 oz (113.7kg) SpO2 100% BMI 33.98 kg/(m2). O2 Therapy: Room Air Physical Exam Constitutional: He is oriented to person, place, and time. Vital signs are normal. He appears well-developed and well-nourished. He is active. HENT: Head: Normocephalic and atraumatic. Right Ear: External ear normal. Left Ear: External ear normal. Nose: Nose normal. Mouth/Throat: Oropharynx is clear and moist. Eyes: Pupils are equal, round, and reactive to light. Conjunctivae, EOM and lids are normal. Lids are everted and swept, no foreign bodies found. Neck: Trachea normal and normal range of motion. Neck supple. Cardiovascular: Normal rate, regular rhythm, normal heart sounds and intact distal pulses. Pulmonary/Chest: Effort normal and breath sounds normal. Abdominal: Soft. Bowel sounds are normal. Musculoskeletal: Normal range of motion. Neurological: He is alert and oriented to person, place, and time. He has normal strength and normal reflexes. No cranial nerve deficit or sensory deficit. He displays a negative Romberg sign. GCS eye subscore is 4. GCS verbal subscore is 5. GCS motor subscore is 6. Skin: Skin is warm and dry. Psychiatric: He has a normal mood and affect. Nursing note and vitals reviewed. Diagnostic Testing ED Labs Ordered and Reviewed - No data to display Procedures ED Course / Clinical Impression MDM / Disposition / Plan 48-year-old male by 30 minutes ago sitting in his truck when he got some midsternal chest pressure radiating to left arm and shoulder. Clamminess shortness of breath with chest heaviness is not describing as a sharp pain but rather a heaviness in his chest. No double vision or blurry vision no numbness no tingling no other constitutional signs or symptoms toenails makes it better or worse. No leg pain leg swelling. At this point the chest heaviness has resolved but he still has just is clammy sensation. He does not go to the doctor regularly he is not aware whether he has hypertension high cholesterol, he does smoke, family history of cardiac disease as well Physical exam Afebrile vital signs stable blood pressures elevated Cardiac regular rate rhythm S1-S2 rubs murmurs gallops Pulmonary exam clear to auscultation no rales rhonchi or crackles Abdomen is soft nontender nondistended bowel sounds present no hepatosplenomegaly Lymphatics no adenopathy Muscle skeletal no cyanosis clubbing edema Skin clean dry and intact Neurological exam is normal Patient has an EKG which shows a normal sinus rhythm normal axis no acute ST elevation or depression T waves P waves intervals within normal limits no old EKG to compare at this time Patient is very suspicious sounding symptoms he does not go to the doctor he probably has hypertension probably has hypercholesterolemia he is morbidly obese he smokes and has a family history of cardiac disease Cardiac labs and x-ray ordered he is currently pain-free Results for orders placed or performed during the hospital encounter of 03/02/19 -ACTIVATED PTT Result Value Ref Range APTT 24.5 23.0 - 32.4 sec -CBC + DIFF Result Value Ref Range WBC 8.82 3.70 - 11.00 k/uL RBC 6.04 (H) 4.20 - 6.00 m/uL Hemoglobin 17.9 (H) 13.0 - 17.0 g/dL Hematocrit 52.9 (H) 39.0 - 51.0 % MCV 87.6 80.0 - 100.0 fL MCH 29.6 26.0 - 34.0 pG MCHC 33.8 30.5 - 36.0 g/dL RDW-CV 13.6 11.5 - 15.0 % Platelet Count 217 150 - 400 k/uL MPV 11.1 9.0 - 12.7 fL Neut% 61.4 % Abs Neut (ANC) 5.42 1.45 - 7.50 k/uL Lymph% 26.3 % Abs Lymph 2.32 1.00 - 4.00 k/uL [place]% 8.4 % Abs [place] 0.74 <0.87 k/uL Eosin% 3.4 % Abs Eosin 0.30 <0.46 k/uL Baso% 0.5 % Abs Baso 0.04 <0.11 k/uL -COMP METABOLIC PANEL Result Value Ref Range Protein, Total 7.1 6.3 - 8.0 g/dL Albumin 4.8 3.9 - 4.9 g/dL Calcium 10.0 8.5 - 10.2 mg/dL Bilirubin, Total 0.4 0.2 - 1.3 mg/dL Alkaline Phosphatase 96 38 - 113 U/L AST 15 14 - 40 U/L Glucose 299 (H) 74 - 99 mg/dL BUN 15 9 - 24 mg/dL Creatinine 0.70 (L) 0.73 - 1.22 mg/dL Sodium 139 136 - 144 mmol/L Potassium 4.8 3.7 - 5.1 mmol/L Chloride 102 97 - 105 mmol/L CO2 22 22 - 30 mmol/L Anion Gap 15 9 - 18 mmol/L ALT 19 10 - 54 U/L eGFR- >60 eGFR-All Other Races >60 . 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 NAME : SUMI AMADO PID : [id number] : 1970 Gender : Male Race : ORD : [id number] Procedure Date : Mar 02 2019 05:35:01 Edit Date : Mar 02 2019 06:14:11 Diagnosis:NORMAL SINUS RHYTHM NORMAL ECG Ventricular Rate : 86 BPM Atrial Rate : 86 BPM P-R Interval : 168 ms QRS Duration : 90 ms Q-T Interval : 378 ms QTC Calculation(Bazett) : 452 ms P [place] : 73 degrees R [place] : -8 degrees T [place] : 29 degrees Test Reason : Chest Discomfort Location : 1 : ER 04 Overread By : , Edited By : DIONNE PAINTING Referred By : System,System Acquired by : , The patient's wearing a repeat troponin at the troponin is not going up to high the patient's condition and need to be admitted. He doesn't have a regular doctor he's probably got diabetes he's probably got hypertension I'm assuming high cholesterol, he is a smoker with a family history of heart disease patient is in agreement Case is signed out to Dr. Thurston pending the last troponin. Diagnostic impression #1 chest pain #2 hypertension #3 hyperglycemia SIGNATURE: MD Jose D Lozano MD 03/02/19 0632 Normal [facility] HISTORY PHYSICALon 9 HISTORY PHYSICAL HNO ID: [id number] Author: Ignacio David Service: General Internal Medicine Author Type: Physician Type: HANDP Filed: 03/02/2019 2:29 PM Note Text: HISTORY AND PHYSICAL EXAMINATION SERVICE DATE: 03/02/2019 SERVICE TIME: 1:36 PM PRIMARY CARE PHYSICIAN: Harshil Vincent MD ASSESSMENT AND PLAN 1. Chest pain - observation, serial troponin, telemetry, cardiology consult 2. HTN, Sinus bradycardia - start antihypertensives per cardiology. 3. Hyperglycemia - Check HgbA1C. Possible DM. 4. Obesity 5. Tobacco abuse - advised smoking cessation and counseled. 6. Borderline high Hgb - follow. Consider further evaluation depending on clinical course. Observation. SUBJECTIVE CHIEF COMPLAINT: Chest pain HPI: This is a 48 year old male who presented to the ER this morning with complaint of chest pain. He reports not seeing a physician for routine care for over 2 decades and has mostly received healthcare at urgent care center in the past. 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 No associated palpitation, nausea, abdominal pain or dizziness. He grew concerned as he has not had similar pain in the past and therefore presented to the ER. Evaluation in the ER was significant for EKG showing normal sinus rhythm with borderline prolonged QTC. Chest x-ray reported no significant acute findings. High sensitivity troponin's checked twice where 7 each time. CBC was significant for borderline high hemoglobin and hematocrit but otherwise normal. CMP was significant for a blood glucose of 299. He was given aspirin and placed on observation on a telemetry monitored bed. Very limited old records available for review, mostly from previous urgent care visits with recurrent URI symptoms. PAST MEDICAL HISTORY: PAST MEDICAL HISTORY Diagnosis Date - Sinusitis PAST SURGICAL HISTORY: PAST SURGICAL HISTORY Procedure Laterality Date - NONE FAMILY HISTORY: FAMILY HISTORY Problem Relation Age of Onset - Heart disease Mother - Heart disease Father - other (lung cancer) Father SOCIAL HISTORY: Social History Tobacco Use - Smoking status: Current Every Day Smoker - Smokeless tobacco: Never Used Substance Use Topics - Alcohol use: Yes Comment: occasional beer, alcohol - Drug use: Not on file MEDICATIONS: Prior to Admission Medications Medications Prior to Admission: ascorbic acid, vitamin C, (VITAMIN C) 500 mg tablet Take 500 mg by mouth once daily. Disp: Rfl: CURRENT ALLERGIES: ALLERGIES No Known Allergies COMPLETE REVIEW OF SYSTEMS: GENERAL: No weight loss, malaise or fevers HEENT: Negative for frequent or significant headaches, No changes in hearing or vision, no nose bleeds or other nasal problems NECK: Negative for lumps, goiter, pain and significant neck swelling RESPIRATORY: No cough, wheeze or dyspnea CARDIOVASCULAR: See history of present illness GI: No nausea, vomiting, or diarrhea : No history of dysuria, frequency or incontinence MUSCULOSKELETAL: Negative for joint pain or swelling, back pain or muscle pain SKIN: Negative for lesions, rash, and itching HEMATOLOGY/LYMPHOLOGY: Negative for prolonged bleeding, bruising easily or swollen nodes ENDOCRINE: Negative for cold or heat intolerance, polyuria, polydipsia and goiter NEURO: No history of headaches, syncope, paralysis, seizures or tremors OBJECTIVE PHYSICAL EXAM: Patient Vitals for the past 24 hrs: BP Temp Temp src Pulse Resp SpO2 Height Weight 03/02/19 0823 151/81 36.8 ?C (98.2 ?F) Oral 71 20 97 % ? ? 03/02/19 0813 ? 182.9 cm (6') 114.4 kg (252 lb 4.8 oz) 03/02/19 0740 136/77 ? ? 63 20 99 % ? ? 03/02/19 0655 143/77 ? ? 68 18 100 % ? ? 03/02/19 0630 170/76 ? ? 82 18 100 % ? ? 03/02/19 0615 138/73 ? ? 68 18 100 % ? ? 03/02/19 0600 144/72 ? ? 74 18 98 % ? ? 03/02/19 0556 166/76 ? ? 78 18 99 % ? ? 03/02/19 0532 172/88 36.8 ?C (98.2 ?F) Oral 83 20 100 % 182.9 cm (6') 113.7 kg (250 lb 9.6 oz) Body mass index is 34.22 kg/m?. GENERAL: Alert, no distress, cooperative HEAD/SINUSES: No significant findings EYES: EOMI, SONIYA OROPHARYNX: Mallampati class 2, no erythema NECK: No jugulovenous distention, Supple LUNGS: Lungs clear to auscultation, Good diaphragmatic excursion CARDIAC: No murmur, Regular ABDOMEN: Abdomen soft, non-tender, BS normal, No masses or organomegaly EXTREMITIES: No edema, pallor or cyanosis NEURO: AAO, normal speech, no gross focal weakness DATA: Diagnostic tests reviewed for today's visit: Recent Labs 03/02/19 0535 WBC 8.82 HB 17.9* HCT 52.9* PLT 217 NA 139 K 4.8 CHLOR 102 CO2 22 CREAT 0.70* BUN 15 GLUC 299* TPROT 7.1 ALB 4.8 CA 10.0 ALKPHOS 96 TBILI 0.4 AST 15 ALT 19 APTT 24.5 INR 1.0 Component Latest Ref Rng AND Units 03/02/2019 03/02/2019 5:35 AM 6:40 AM AISHWARYA High Sensitivity <12 ng/L 7 7 DATE OF EXAM: Mar 02 2019 ?5:53AM ? XR CHEST 1V FRONTAL IMPRESSION: Lines, tubes, and devices: ?Overlying EKG leads Lungs and pleura: ?Negative for pulmonary consolidation or pleural effusion. Left basilar subsegmental atelectasis and/or fibrosis. Negative for pneumothorax Cardiomediastinal silhouette: ?No abnormality identified. ?The trachea is midline EKG done in the ER - 03/02/2019 Strip reviewed by me. Normal sinus rhythm. QTC of 452 ms. Old records attempted to be reviewed but very limited old records available for review. No significant outside records available on care everywhere for review. This note was partially created using voice recognition software and is inherently subject to errors including those of syntax and sound-alike substitutions which may escape proofreading. In such instances, original meaning may be extrapolated by contextual derivation. SIGNATURE: Ignacio Hernandez MD PATIENT NAME: Sumi Amado [facility] Hemoglobin A1con 03-02-2019 HbA1c (Bld) [Mass fraction] 10.4 % High 4.3-5.6 [facility] Comment on above: Result Comment: Amer ican Diabetes Association guidelines indicate that patients with HgbA1c in the range 5.7-6.4% are at increased risk for development of diabetes, and intervention by lifestyle modification may be beneficial. HgbA1c greater or equal to 6.5% is considered diagnostic of diabetes. Performed By: #### H BA1C #### [facility] [address] [address] HbA1c (Bld) [Mass fraction] 252 mg/dL Normal [facility] Comment on above: Result Comment: eAG: (Estimated average glucose) is a calculated value from HgbA1c and is inside account representative of the average blood glucose level in the last 2-3 month period. Performed By: #### H BA1C #### [facility] [address] [address] Lipid Panel, [place] 019 Cholesterol [Mass/Vol] 239 mg/dL High <200 [facility] Comment on above: Performed By: #### L IPB #### [facility] [address] [facility] [phone] Cholesterol in HDL [Mass/Vol] 34 mg/dL Low >39 [facility] Comment on above: Performed By: #### L IPB #### [facility] [address] [phone] Cholesterol in LDL [Mass/Vol] 171 mg/dL High <100 [facility] Comment on above: Performed By: #### L IPB #### [facility] [address] [facility] [phone] Fasting Time Unknown Normal [facility] Comment on above: Performed By: #### L IPB #### [facility] [address] [phone] LDL:HDL Ratio 5.03 High <2.54 [facility] Comment on above: Result Comment: Refquinton oleary: 1. National Cholesterol Education Program ATP III Guideline At-A-Glance Quick Desk Reference: National Heart, Lung, and Blood [place]. National Institutes of Health. 2001: NIH Publication No. 01-3305. 2. An International Atherosclerosis Society position paper: global recommendations for the management of dyslipidemia: executive summary, Atherosclerosis. 2014: 232(2):410-413. Performed By: #### L IPB #### [facility] [address] [address] Non HDL Cholesterol 205 mg/dL High <130 [facility] Comment on above: Performed By: #### L IPB #### [facility] [address] [address] TC:HDL Ratio 7.03 High <5.10 [facility] Comment on above: Performed By: #### L IPB #### [facility] [address] [address] Triglyceride [Mass/Vol] 168 mg/dL High <150 [facility] Comment on above: Performed By: #### L IPB #### [facility] [address] [address] VLDL Cholesterol 34 mg/dL High <30 [facility] Comment on above: Performed By: #### L IPB #### [facility] [address] [address] NURSING PROGon 03-02-2019 NURSING PROG HNO ID: [id number] Author: Iggy (Rn) CARLOS ENRIQUE Hatfield Service: ? Author Type: Registered Nurse Type: Nursing Progress Note Filed: 03/03/2019 6:44 AM Note Text: Nursing Progress Note Patient Name: Sumi Amado Patient Location: [address] [address] [id number]- 1 __ Daily Note:03/02/191944 Gave education to patient regarding HA1C testing, lipid panel results of high cholesterol and LDLs, as well as blood glucose testing. Educated on the therapeutic effects of metoprolol, insulin, and atorvastatin. Pt denies chest pain. [address] Hdz regarding HR of 55 on tele. Said it is okay to give metoprolol 25 mg. 2200 Pt resting in bed watching television. Denies needs at this time. 0000 Pt awake resting in bed. 0030 Pt blood pressure 117/54, HR 55. Will continue to monitor. 0230 Pt observed asleep. Bed in lowest position, call light in reach, side rails up x3. 0330 Pt HR remains around 55. Observed asleep. 0530 Pt up out of bed walking in room. HR 51. Sinus bradycardia. Denies needs. This note was completed by: Iggy Hatfield RN [facility] NURSING PROG HNO ID: [id number] Author: Veronika AquinoRn) CARLOS ENRIQUE Menard Service: ? Author Type: Registered Nurse Type: Nursing Progress Note Filed: 03/02/2019 9:41 AM Note Text: Nursing Progress Note Patient Name: Sumi Amado Patient Location: [place] [id number]/[facility]- 1 __ Daily Note:03/02/19 0820 - Patient is resting in the bed. No c/o pain or sob. Instructed to call for help. Call hughes within reach. This note was completed by: Veronika Menard RN [facility] TSHon 03-02-2019 TSH Qn 3.070 uU/mL Normal 0.400-5.500 [facility] Comment on above: Performed By: #### T SH #### [facility] [address] [place] [address] Troponin Ton 03-02-2019 Troponin T.cardiac [Mass/Vol] ug/L Normal 0.000-0.029 [facility] Comment on above: Performed By: #### T NT #### [facility] [address] [place] [address] XR CHEST 1V FRONTALon 2018 XR CHEST 1V FRONTAL * * *Final Report* * * DATE OF EXAM: Mar 02 2019 5:53AM MDX 5290 - XR CHEST 1V FRONTAL / PROCEDURE REASON: Chest pain * * * * Physician Interpretation * * * * EXAMINATION: CHEST RADIOGRAPH (PORTABLE SINGLE VIEW AP) Exam Date/Time: 03/02/2019 5:53 AM Clinical History: Chest pain MQ: [id number] Comparison: 09/24/2005, 1710 hours; 10/29/1998, 1439 hours RESULT: See impression. IMPRESSION: Lines, tubes, and devices: Overlying EKG leads Lungs and pleura: Negative for pulmonary consolidation or pleural effusion. Left basilar subsegmental atelectasis and/or fibrosis. Negative for pneumothorax Cardiomediastinal silhouette: No abnormality identified. 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[employer] Transcribe Date/Time: Mar 02 2019 5:56A Dictated by : JOSE ALBERTO MCCLOUD MD This examination was interpreted and the report reviewed and electronically signed by: JOSE ALBERTO MCCLOUD MD on Mar 02 2019 6:00AM EST [id number] Normal [facility] Vital Signs Date Time Vital Sign Value Performing Clinician Facility 12-18-2024 12:54-0400 Body height 182.88 cm Cleo Berry SHANK TAPPER-C Work Phone: [facility] 12-18-2024 12:54-0400 Body mass index (BMI) [Ratio] 32.5 kg/m2 Cleo Berry SHANK TAPPER-C Work Phone: [facility] 12-18-2024 12:54-0400 Body weight 108.86 kg Cleo Berry SHANK TAPPER-C Work Phone: [facility] 12-18-2024 12:54-0400 Diastolic blood pressure 72 mm[Hg] Cleo Berry SHANK TAPPER-C Work Phone: [facility] 12-18-2024 12:54-0400 Heart rate 67 /min Cleo Berry SHANK TAPPER-C Work Phone: [facility] 12-18-2024 12:54-0400 Respiratory rate 18 /min Cleo Berry SHANK TAPPER-C Work Phone: [facility] 12-18-2024 12:54-0400 SaO2% (BldA) [Mass fraction] 95 % Cleo Berry SHANK TAPPER-C Work Phone: [facility] 12-18-2024 12:54-0400 Systolic blood pressure 114 mm[Hg] Cleo FLAHERTY Work Phone: [facility] 06-27-2023 17:00-0500 Diastolic blood pressure 66 mm[Hg] [facility] 06-27-2023 17:00-0500 Heart rate 60 /min [facility] 06-27-2023 17:00-0500 Respiratory rate 16 /min [facility] 06-27-2023 17:00-0500 SaO2% (BldA) [Mass fraction] 97 % [facility] 06-27-2023 17:00-0500 Systolic blood pressure 115 mm[Hg] [facility] 06-27-2023 13:28-0500 Body height 182.88 cm [facility] 06-27-2023 13:28-0500 Body mass index (BMI) [Ratio] 35.4 kg/m2 [facility] 06-27-2023 13:28-0500 Body temperature 98.2 [degF] [facility] 06-27-2023 13:28-0500 Body weight 118.3 kg [facility] 05-20-2019 11:00-0500 Body temperature 97.81 [degF] Vladimir Keaner DO Work Phone: [facility] Work Phone: 05-20-2019 11:00-0500 Diastolic blood pressure 88 mm[Hg] Vladimir Keaner DO Work Phone: [facility] Work Phone: 05-20-2019 11:00-0500 Heart rate 58 /min Vladimir Keaner DO Work Phone: [facility] Work Phone: 05-20-2019 11:00-0500 Respiratory rate 20 /min Vladimir Keaner DO Work Phone: [facility] Work Phone: 05-20-2019 11:00-0500 Systolic blood pressure 135 mm[Hg] Vladimir Keaner DO Work Phone: [facility] Work Phone: 05-20-2019 07:11-0500 Body mass index (BMI) [Ratio] 33.26 kg/m2 Vladimir Keaner DO Work Phone: [facility] Work Phone: 05-20-2019 07:11-0500 Body weight 111.22 kg Vladimir Keaner DO Work Phone: [facility] Work Phone: 05-19-2019 11:00-0500 SaO2% (BldA) [Mass fraction] 97 % Vladimir Keaner DO Work Phone: [facility] Work Phone: 05-18-2019 20:52-0500 Body height 182.9 cm Vladimir Keaner DO Work Phone: [facility] Work Phone: NEGATED: Highlighted [id number] 13:40-0400 BMI (Body Mass Index) 35.12 kg/m2 Skylar Newton AT [facility] Work Phone: NEGATED: Highlighted [id number] 13:40-0400 Body weight 117.03 kg Skylar Babeckico AT [facility] Work Phone: NEGATED: Highlighted [id number] 13:40-0400 Body weight 117 kg Skylar Baucco AT [facility] Work Phone: NEGATED: Highlighted [id number] 13:40-0400 Heart rate 2+ Skylar Babeckico AT [facility] Work Phone: NEGATED: Highlighted [id number] 13:40-0400 Height 182.88 cm Skylar Baucco AT [facility] Work Phone: NEGATED: Highlighted [id number] 13:40-0400 Height 183 cm Skylar Baucco AT [facility] Work Phone: Encounters Encounter Date Encounter Type Care Provider Facility Start: 01-19-2025 End: 01-19-2025 Emergency department patient visit MAY PANCHAL Facility:[facility] Start: 12-18-2024 End: 12-18-[address] Johan Souza MD [facility] Work Phone: Start: 12-18-2024 End: 12-18-2024 ambulatory Cleo Berry SHANK TAPPER-C Work Phone: -[facility] Start: 06-21-2024 End: 06-21-2024 Emergency department patient visit [facility] Facility:[facility] Start: 05-16-2024 End: 05-16-2024 ambulatory [facility] Facility:[facility] Start: 06-27-2023 End: 06-27-2023 Emergency department patient visit [facility] Work Phone: Start: 06-26-2022 Patient encounter status [facility] Start: 01-05-2022 End: 01-05-2022 Patient encounter procedure [facility] Start: 02-05-2020 End: 02-05-2020 Patient encounter procedure Patti Langley PA-C Work Phone: [facility] Work Phone: Start: 02-05-2020 End: 02-05-2020 Pt evaluation Patti Langley PA-C Work Phone: [facility] Work Phone: Start: 05-18-2019 End: 05-20-2019 Evaluation and management of inpatient Vladimir Salamanca DO Work Phone: [facility] Comment on above: ST elevation myocard ial infarction (STEMI), unspecified artery (HCC) (Primary Dx) Procedures Date Procedure Procedure Detail Performing Clinician Start: 06-27-2023 SARS-CoV-2, Influenz a & RSV (PCR) Start: 06-27-2023 Plain chest X-ray Start: 02-05-2020 End: 02-05-2020 Blood pressure screening [...] Phone: Start: 05-20-2019 Comprehensive metabo lic panel Santiago Myers Buxton DO Work Phone: Start: 05-19-2019 Gluc bld gluc mntr d ev cleared fda spec home use Vladimir D Keaner DO Work Phone: Start: 05-19-2019 Creatine kinase.MB [Mass/volume] in Serum or Plasma Santiago W Corky DO Work Phone: Start: 05-19-2019 Gluc bld gluc mntr d ev cleared fda spec home use Vladimir D Keaner DO Work Phone: Start: 05-19-2019 Echo tthrc r-t 2d w/wom-mode compl spec&colr d Adebayo Sweeney DO Work Phone: Start: 05-19-2019 Creatine kinase.MB [Mass/volume] in Serum or Plasma Santiago Fried DO Work Phone: Start: 05-19-2019 Gluc bld gluc mntr d ev cleared fda spec home use Vladimir D Jadyn DO Work Phone: Start: 05-19-2019 Ecg routine ecg w/le ast 12 lds w/i&r Santiago Fried DO Work Phone: Start: 05-19-2019 Comprehensive metabo lic panel Santiagozainab Fried DO Work Phone: Start: 05-19-2019 Creatine kinase.MB [Mass/volume] in Serum or Plasma Santiagozainab Fried DO Work Phone: Start: 05-18-2019 Ecg routine ecg w/le ast 12 lds w/i&r Santiago Fried DO Work Phone: Start: 05-18-2019 Creatine kinase.MB [Mass/volume] in Serum or Plasma Santiago Fried DO Work Phone: Start: 05-18-2019 End: 05-18-2019 Hemoglobin glycosylated a1c Santiagozainab Fried DO Work Phone: Start: 05-18-2019 Lipid panel Santiagozainab Colinl and DO Work Phone: Start: 05-18-2019 CARDIAC CATH NURSING LOG 3m Scanning Start: 05-18-2019 DIAGNOSTIC CARDIAC C ATH LAB PROCEDURE Javier Duval MD Work Phone: NEGATED: Highlighted rowStart: 02-05-2020 End: 02-05-2020 Documentation of current medications Skylar Newton AT Plan of Treatment Date Care Activity Detail Author Start: 06-27-2023 [facility] Start: 06-27-2023 [facility] Start: 05-20-2020 Creatinine monitoring Creatinine monitoring [facility] Work Phone: Start: 05-20-2020 Potassium monitoring Potassium monitoring [facility] Work Phone: Start: 05-18-2020 A1C test (Diabetic or Prediabetic) A1C test (Diabetic or Prediabetic) [facility] Work Phone: Start: 05-18-2020 Lipid screen Lipid screen [facility] Work Phone: Start: 03-20-2020 End: 03-20-2020 Appointment Appointment [place] [facility] [place] Work Phone: Start: 03-08-2020 Influenza vaccination Flu vaccine (#1) [facility] Work Phone: Comment on above: Postponed from 02/05/2019 (Patient Refus ed) Start: 02-05-2020 End: 02-05-2020 Appointment Appointment [place] [facility] Work Phone: Start: 05-26-2019 End: 05-26-2019 Patient encounter procedure 05/26/2019 Office Visit Cardiology Haley Adam Patricio, [employer]LECT[employer]IC [employer] ASSEM[employer]ER AND TESTER - REIMBURSEMENT LIAISON [address] [id number] [facility]O Start: 2019 Colon cancer screen colonoscopy Colon cancer screen colonoscopy [facility] Work Phone: Start: 2019 Shingles Vaccine (1 of 2) Shingles Vaccine (1 of 2) [facility] Work Phone: Start: 1988 Hepatitis B vaccine (1 of 3 - Risk 3-dose series) Hepatitis B vaccine (1 of 3 - Risk 3-dose series) [facility] Work Phone: Start: 1987 Diabetic microalbuminuria test Diabetic microalbuminuria test [facility] Work Phone: Start: 1984 HIV screen HIV screen [facility] Work Phone: Start: 1980 DTaP/Tdap/Td vaccine (1 - Tdap) DTaP/Tdap/Td vaccine (1 - Tdap) [facility] Work Phone: Start: 1979 3 comp foot exam completed Diabetic foot exam [facility] Work Phone: Start: 1979 Diabetic retinal exam Diabetic retinal exam [facility] Work Phone: Start: 1975 Pneumococcal 0-64 years Vaccine (1 of 1 - PPSV23) Pneumococcal 0-64 years Vaccine (1 of 1 - PPSV23) [facility] Work Phone: CBC panel - Blood by Automated count CBC Lab Routine Daily until discontinued starting 05/19/2019, 2 completed [facility] Work Phone: Comment on above: Daily until discontinued starting 2018, 2 completed Comprehensive metabo lic 2000 panel - Serum or Plasma Comprehensive Metabolic Panel Lab Routine Daily until discontinued starting 05/19/2019, 2 completed [facility] Work Phone: Comment on above: Daily until discontinued starting 2018, 2 completed End: 05-18-2019 Diagnostic Cardiac Snowblower Mechanic Procedure Diagnostic Cardiac Snowblower Mechanic Procedure Cardiac Cath Routine One Time for 1 Occurrences starting 05/18/2019 until 05/18/2019 [facility] Work Phone: Comment on above: One Time for 1 Occurrences starting 05/07 until 05/18/2019 EKG 12 lead [facility] Work Phone: Comment on above: Daily until discontinued starting 2018, 2 completed Glucose [Mass/volume ] in Serum or Plasma [facility] Work Phone: Comment on above: 4X Daily (AC & HS) until discontinued st arting 05/19/2019 As Needed until disc ontinued starting 05/18/2019 Initiate Oxygen Ther apy Protocol Initiate Oxygen Therapy Protocol Respiratory Care Routine Daily until discontinued starting 05/18/2019 [facility] Work Phone: Comment on above: Daily until discontinued starting 2018 Magnesium [Mass/volu me] in Serum or Plasma Magnesium Lab Routine Daily until discontinued starting 05/19/2019, 2 completed [facility] Work Phone: Comment on above: Daily until discontinued starting 2018, 2 completed Patient Education ED Chest Pain, Uncertain Cause ED Diabetic Hyperglycemia [facility] Work Phone: Patient referral [facility] Work Phone: Phosphate [Mass/volu me] in Serum or Plasma Phosphorus Lab Routine Daily until discontinued starting 05/19/2019, 2 completed [facility] Work Phone: Comment on above: Daily until discontinued starting 2018, 2 completed Payers Date Payer Category Payer Unknown [id number] 2024 Self-pay [id number] 2024 Unknown [id number] Private Health Insurance [id number] Unknown [id number] Unknown [id number] Unknown [id number] Social History Date Type Detail Facility Start: 05-18-2019 End: 06-21-2024 Tobacco smoking status NHIS Current every day smoker [facility] Start: 05-18-2019 Cigarettes smoked current (pack per day) - Reported [facility] Work Phone: Start: 05-18-2019 Alcohol intake Current drinke r of alcohol (finding) [facility] Work Phone: Start: 05-18-2019 Alcohol Comment occassional; o nce a month [facility] Work Phone: Sex Assigned At Not on file [facility] Work Phone: Start: 07-21-2021 End: 06-27-2023 Tobacco smoking status CAIS Unknown if ever smoked [facility] Start: 07-09-2020 Spouse/ Signif icant Other [facility] Start: 1970 Sex Assigned At Male W [facility] NEGATED: Highlighted rowStart: 02-05-2020 End: 02-05-2020 Alcohol use Alcohol use [facility] Work Phone: NEGATED: Highlighted rowStart: 02-05-2020 End: 02-05-2020 Details of drug misuse behavior Details of drug misuse behavior [facility] Work Phone: NEGATED: Highlighted rowStart: 02-05-2020 End: 02-05-2020 Employment detail Employment detail [facility] Work Phone: NEGATED: Highlighted rowStart: 02-05-2020 End: 02-05-2020 Assertion Former smoker [facility] Work Phone: NEGATED: Highlighted rowStart: 02-05-2020 End: 02-05-2020 How many days of moderate to strenuous exercise, like a brisk walk, did you do in the last 7 days? How many days of moderate to strenuous exercise, like a brisk walk, did you do in the last 7 days? [facility] Work Phone: Mental Status Date Assessment Result Facility 06-27-2023 Cognitive function Voice/Name [facility] Work Phone: Discharge summary 06-27-2023 Note Date & Type Note Facility 06-27-2023 Discharge summary Note Date/Time June 27, 2023 2:54pm [facility] Medical Records Department [address] [place] [address] Emergency Department Summary 06/27/23 MR#: [id number] Acct: [id number] Name: SUMI AMADO Rep #:[id number] : 1970 53 From: Cristela Neil PCP: [facility] Status:REG ER Location: ED HPI History of Present Illness Chief Complaint: Chest Pain Informant: patient Narrative Narrative: Patient is a 53-year-old male with history of hypertension and ACS presenting for generalized feeling of feeling off and some mild chest discomfort. He checked his blood pressure at home initially was 140/83 but on subsequent checksit went to 155 systolic. States he has more of a tightness in his chest. Does not like his prior heart attack. Has some mild nausea and a headache. He had intermittent episodes of feeling cold and clammy. No reported fever, abdominal pain, vomiting, diarrhea or URI symptoms. States he felt fine yesterday. Patient has history wanted to be evaluated. No other complaints or concerns at this time. 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 Diabetes Essential hypertension Hypertension Mixed hyperlipidemia Myocardial infarction Old myocardial infarction ALEXEI on CPAP Paroxysmal ventricular tachycardia Presence of stent in coronary artery (~05/18/19) Home Medications aspirin 81 mg tablet,delayed release 81 mg PO DAILY heart health 07/25/19 [History Last Taken 07/08/20] atorvastatin 80 mg tablet 80 mg PO QHS cholesterol 07/25/19 [History Last Taken 07/08/20] lisinopril 5 mg tablet 5 mg PO DAILY #30 tabs 02/06/20 [Rx Last Taken 07/08/20] clopidogrel 75 mg tablet 75 mg PO DAILY Anti-platelet #90 tabs 06/11/20 [Rx Last Taken 07/09/20] albuterol sulfate 90 mcg/actuation aerosol inhaler 2 puff inhalation Q4H PRN 07/04/21 [History Last Taken Unknown] glipizide 5 mg tablet, extended release 24 hr 5 mg PO DAILY Diabetes #90 tabs 01/19/22 [Rx Last Taken Unknown] metformin 500 mg tablet,extended release 24 hr 250 mg PO BID 06/26/22 [History Last Taken Unknown] nitroglycerin 0.4 mg sublingual tablet 0.4 mg sublingual Q5-15M PRN chest pain #25 tabs 08/03/22 [Rx Last Taken Unknown] metoprolol succinate 25 mg tablet,extended release 24 hr 12.5 mg (1/2 x 25 mg) PO DAILY #45 tabs 02/15/23 [Rx Last Taken Unknown] Allergy/AdvReac Type Severity Reaction Status Date / Time No Known Allergies Allergy Verified 12/21/22 10:17 Family History Father CVA (cerebral vascular accident) Cancer Heart disease Brain aneurysm COPD (chronic obstructive pulmonary disease) Mother Myocardial infarction Heart disease Hypertension Other Cardiovascular disease Surgical History History of arthroscopic knee surgery Presence of coronary angioplasty implant and graft (~05/18/19) Social History Smoking Status: Current every day smoker tobacco type: cigarettes how long ago did patient quit smokin05/18/19 alcohol intake: current alcohol intake frequency: a few times a month substance use type: does not use caffeine: Yes Type: coffee Number of servings: 4 what type of physical activity do you participate in: walking ROS ROS ED Constitutional Constitutional ED: Denies chills or fever(s) Eyes Eyes: Denies blurry vision ENT ENT ED: Denies rhinorrhea or sore throat Cardiovascular Cardiovascular: Reports chest pain Respiratory/Chest Respiratory/Chest: Denies cough or dyspnea Gastrointestinal Gastrointestinal: Reports nausea; Denies vomiting Genitourinary Genitourinary ED: Denies dysuria Musculoskeletal Musculoskeletal: Denies arthralgias, myalgias or neck pain Integumentary Denies rash Neurologic Neurologic: Reports headache(s); Denies paresthesias or weakness Psychiatric Psychiatric: Denies anxiety Hematologic/Lymphatic Hematologic/Lymphatic: Denies easy bleeding or easy bruising EXAM Physical Exam Const Vital Signs: 06/27/23 13:28 06/27/23 13:30 06/27/23 13:56 Temperature 98.2 F Temperature Source Temporal Pulse Rate 80 Respiratory Rate 12 Respiratory Effort Normal Non-Labored Blood Pressure 152/73 H Blood Pressure Mean 99 Pulse Ox 99 Oxygen Delivery Method Room Air Room Air Positive well nourished and well developed General Appearance ED: well developed and NAD HEENT Reports moist mucous membranes normocephalic Eyes PERRL and EOMs intact bilaterally Neck supple and no JVD Chest Wall inspection of chest normal and palpation of chest normal Resp normal respiratory effort and clear to auscultation bilaterally Cardio regular rate, regular rhythm and no murmurs GI normal to inspection, nondistended, normoactive bowel sounds and soft to palpation Extremity normal to inspection General Extremety ED: Negative for edema General Extremity: Negative for edema Neuro oriented x3 Sensorium / Orientation: awake and alert Motor Exam: Negative for general weakness Psych mental status grossly normal Skin no rashes or lesions noted and no wounds Heart Score History: Slightly/Non-Suspicious ECG: Normal Age: >45 - <65 years Risk Factors: >/= 3 Risk Factors or History of CAD Troponin: </= Normal Limit Score: 3 MDM MDM MDM Narrative Medical decision making narrative: Patient presents the ER with a vague sensation of tightness in his chest and feeling off. Blood pressure mildly elevated. Patient appears nontoxic in no acute distress. Differential includes ACS, pneumonia, viral syndrome or electrolyte abnormality. EKG is normal sinus rhythm with no acute ischemic process. 2 view chest x-ray viewed by myself as well as radiology does not show any acute process. Delta high-sensitivity troponin is normal at 8 and 5 respectively. CBC and CMP largely unremarkable. Glucose is elevated at 193 however patient does have a history of diabetes. Will be informed of glucose findings. Vital panel negative for COVID, influenza and RSV. While in the ER patient's blood pressure is improved. He continues to have a pounding headache and is offered Tylenol but states that he can take some when he gets home. Counseled that the exact cause of his general malaise is not clear, could be part of an early viral syndrome but is given encouraged to return to the emergency room. Did discuss giving a dose of subcu insulin prior to discharge for his hyperglycemia. Patient states he will just go home and drink lots of water and take his diabetic medicine is being more conscientious with his diet. He thinks his high blood sugar could be causing his generalized malaise. Lab Data Attestation: I reviewed the patient's lab results. Labs: Laboratory Results - last 24 hr 06/27/23 06/27/23 13:30 15:35 WBC 8.9 RBC 5.40 Hgb 15.6 Hct 49.0 MCV 90.7 MCH 28.9 MCHC 31.8 L RDW Std Deviation 43.8 RDW Coeff of Graham 13.2 Plt Count 251 MPV 10.9 Immature Gran % (Auto) 0.300 Neut % (Auto) 55.4 Lymph % (Auto) 29.4 [place] % (Auto) 8.8 Eos % (Auto) 5.4 H Baso % (Auto) 0.7 Absolute Neuts (auto) 4.9 Absolute Lymphs (auto) 2.61 Nucleated RBC % 0 Sodium 140 Potassium 4.0 Chloride 105 Carbon Dioxide 27.0 Anion Gap 8 BUN 15 Creatinine 0.95 Estim Creat Clear Calc 118.04 Est GFR (MDRD) Af Amer 107 Est GFR (MDRD) Non-Af 88 BUN/Creatinine Ratio 15.8 Glucose 193 H Calcium 9.0 Magnesium 1.9 Troponin I High Sens 8 5 Radiography Chest X-Ray - ED: 2 View, Read by ED Physician, Read by Radiologist and No AcuteDisease Diagnostic Testing: Clinical Impression(s) from Imaging Studies Chest X-Ray 06/27/23 13:32 IMPRESSION: No acute cardiopulmonary abnormality. No interval change. Electronically Signed: Anoop Singh MD at 14:37 EST , Rhythm Strip Rhythm Strip: Sinus Rhythm Rate: 79 Ectopy: None EKG Initial EKG: Attestation: I personally reviewed and interpreted this EKG as follows: Interpretation: Sinus Rhythm Comments: Normal sinus rhythm at a rate of 79 Normal axis Normal intervals Normal ST segments Discharge Plan Triage Chief Complaint: Chest Pain ED Provider: Cristela Campoverde Dx/Rx/DC Orders Clinical Impression: Malaise, Hyperglycemia, Chest discomfort Instructions: ED Chest Pain, Uncertain Cause, ED Diabetic Hyperglycemia Prescriptions: No Action lisinopril 5 mg tablet 5 mg PO DAILY Qty: 30 6RF albuterol sulfate 90 mcg/actuation HFA aerosol inhaler 2 puff inhalation Q4H PRN Patient Comments: inhale 2 puffs by mouth every 4 to 6 hours glipizide 5 mg tablet extended release 24hr 5 mg PO DAILY Qty: 90 1RF metformin 500 mg tablet extended release 24 hr 250 mg PO BID atorvastatin 80 MG tablet 80 mg PO QHS aspirin 81 MG tablet,delayed release (DR/EC) 81 mg PO DAILY clopidogrel 75 mg tablet 75 mg PO DAILY Qty: 90 3RF nitroglycerin 0.4 mg tablet, sublingual 0.4 mg SUBLINGUAL Q5-15M PRN (Reason: chest pain) Qty: 25 1RF Rx Instructions: do not exceed 3 doses per episode metoprolol succinate 25 mg tablet extended release 24 hr 12.5 mg PO DAILY Qty: 45 3RF [facility] [facility] [[facility] Provider] - Activity Restrictions/Additional Instructions: Your workup was largely normal today. Your blood sugar was elevated (glucose of193). Please drink extra water when you get home as we discussed. No signs of acute stress on your heart but please return to the emergency room for progression or worsening of your symptoms. Disposition Disposition: Home, Self Care What to do if you have Problems For any increased pain, shortness of breath, bleeding, nausea or vomiting, chestpain, or any unexpected problems, contact your Primary Care Provider. Call [facility] ([phone]) or report to the closest Emergency Room. Call 911 if necessary. 06/27/23 1655 <Electronically signed by Cristela Campoverde DO> Cosigner Signature (if applicable): CC: [facility] ~ Signed [facility] Work Phone: History of Present illness Narrative 05-20-2019 Helen Beasley - 05/20/2019 1:13 PM Garland Martines DO - 05/20/2019 8:31 AM Garland Martines DO - 05/19/2019 6:54 AM Patric Bartholomew RN - 05/19/2019 1:32 AM EST Note Date & Type Note Facility 05-20-2019 History of Present illness Narrative .Nutrition rescreen completed. Chart reviewed. Patient to be monitored and followed by the diet technical support technician.DYLAN Simmons CARDIOLOGY PROGRESS NOTE Chart and [...] BID insulin lispro 0-6 Units Subcutaneous TID Review of Systems: Review of Systems Constitutional: [...] IMPRESSIONS/RECOMMENDATIONS: Active Problems: Coronary artery disease involving k[place] coronary artery of [place] heart without angina pectoris Essential hypertension Nicotine [...] Increased lisinopril to 40mg - [facility] the [facility] for [facility] Type II Diabetes - holding patient's home metformin 500 mg BID & glipizide 5 mg QD - starting low dose sliding scaled - sees the [facility] for [facility] managmenet Hyperlipidemia - Lipitor 80 mg QHS - sees the [facility] for [facility] Tobacco Abuse - Tobacco [...] mcg/min (05/19/19 0430) dextrose CBC: Recent Labs 05/19/19306 WBC 11.9* HGB 15.4 HCT 45.6 PLT 216 BMP: Recent Labs 05/19/19306 NA 137 K 3.9 CL 107 CO2 22 BUN 14 CREATININE 0.65 INR: No results for input(s): INR in the last 72 hours. No results for input(s): BNP in the last 72 hours. TSH: No results found for: TSH Cardiac Injury Profile: Recent Labs 05/18/19 2100 05/19/19306 CKTOTAL 293* 1,127* CKMB 13.2* 54.2* TROPONINI [...] (increased from home dose) - [facility] Type II Diabetes - holding patient's home metformin 500 mg BID & glipizide 5 mg QD - starting low dose sliding scaled - [facility] manag[facility] Hyperlipidemia - Lipitor 40 mg QHS - [facility] Tobacco Abuse - Tobacco Cessation Education - Patient motivated to quit smoking Obesity - BMI 34.9 Garland Ali, PGY-1 Associated attestation - Martinez Vila MD [...] and vital signs. documented in this encounter [facility] Work Phone: Hospital Discharge instructions 05-19-2019 Instructions Note Date & Type Note Facility 05-19-2019 Hospital Discharg e instructions Adam De Leon, JACINTO - REIMBURSEMENT LIAISON - 05/19/2019 If you have questions, issues, or concerns please call or text the Ischemic Heart Disease coordinator Advance Practice Nurse cell phone # [phone] Cardiac Rehab The Cardiac Rehabilitation Team at [facility] consists of highly skilled healthcare professionals, [...] regarding this valuable service please call # [phone] Orientation is available on all Wednesdays at 1130 am location in the [address] Call your doctor with any medication questions or if you notice any side effects from your medications. If you are unable to fill your medications, please call your Conveyor System Dispatcher immediately. The office number is located with [...] for 24 hours. GIVE PCI PACKET (FROM PLACING JUDGE) TO PATIENT Give Coronary Artery Discharge Booklet [...] gone by tomorrow. documented in this encounter [facility] Work Phone: Evaluation note Note Date & Type Note Facility Evaluation note Diagnosis ST elevation myocardial infarction (STEMI), unspecified artery (HCC)- Primary Type 2 diabetes mellitus without complication, without long-term current use of insulin (HCC) Coronary artery disease involving k[place] coronary artery of [place] heart without angina pectoris Essential hypertension Unspecified essential hypertension Nicotine use disorder Tobacco use disorder Obesity, Class I, BMI 30-34.9 Obesity, unspecified documented in this encounter [facility] Work Phone: Evaluation note Note Date & Type Note Facility Evaluation note No assessment information availa [facility] Work Phone: Hospital Discharge instructions Note Date & Type Note Facility Hospital Discharge instructions Additional Instructions Your workup was largely normal today. Your blood sugar was elevated (glucose of 193). Please drink extra water when you get home as we discussed. No signs of acute stress on your heart but please return to the emergency room for progression or worsening of your symptoms. [facility] Work Phone: Reason for referral (narrative) Note Date & Type Note Facility Reason for referral (narrative) No reason for referral information available [facility] Work Phone: Summary Purpose Family History No Family History Records Found Relationship Condition Age at Onset Recorded Date/T marin Not Specified Cardiovascular disease Unknown father Cerebrovascular accident (CVA) Unknown Malignant neoplasm Unknown Cardiac disease Unknown Cerebral aneurysm Unknown Chronic obstructive pulmonary disease Unk nown mother Myocardial infarction Unknown Hypertension Unknown Advance Directives No Advanced Directives Records FoundDocuments on File Type Date Recorded 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 Expl anation Advance Directives and Living Will Power of Intern Retail Latest Code Status on File Code Status Date Activated Date Inactivated Comments Full Code 05/18/2019 8:50 PM Full Code 05/18/2019 8:50 PM 05/18/2019 8:50 PM Advance Directive Response Recorded Date/ Time Living Will No July 09 8:42am Power of Intern Retail No July 09, 2020 8:42am Advance Directive Response Recorded Date/ Time Living Will No June 27 1:30pm Power of Intern Retail No June 27, 2023 1:30pm Hospital Course Note HNO ID: [id number] Author: Marco Trinidad Service: General Internal Medicine Author Type: Nurse Practitioner Type: Discharge Summary Filed: 03/03/2019 1:18 PM Note Text: Attestation signed by Ignacio Hernandez at 03/07/2019 9:48 AM Agree with above. Patient examined by me prior to discharge along with RN. Over 30 minutes spent by me in discharge day care. Discussed with Dr. Hdz, with RN AND with ELECTRONIC SCALE ASSEMBLER AND TESTER. Ignacio Hernandez MD 03/07/2019 9:48 AM DISCHARGE [...] has not been provided by the sender. Chief Complaint and Reason for Visit Chief Complaint E ORDERS Chief Complaint chest pain Chief Complaint Admit Date 1 Y FU December 18, 2024 12:5 1pm Additional Source Comments (unrecognized sect ion and content) No Status Records FoundNo Status Records FoundNo Status Records FoundNo Status Records FoundNo Status Records FoundNo Status Records Found INFORMATION SOURCE (unrecogn ized section and content) DATE CREATED AUTHOR 03/15/2019 [facility] DATE CREATED AUTHOR AUTHOR'S ORGANIZ ATION 06/26/2019 [facility] DATE CREATED AUTHOR AUTHOR'S ORGANIZ ATION 11/02/2020 [facility] ([place] DATE CREATED AUTHOR AUTHOR'S ORGANIZ ATION 11/04/2021 [facility] DATE CREATED AUTHOR AUTHOR'S ORGANIZ ATION 12/21/2024 [facility] DATE CREATED AUTHOR AUTHOR'S ORGANIZ ATION 01/21/2025 [facility] Reason for Visit (unrecogniz ed section and content) Reason For Visit Description New - 1st visit with practice Preliminary reason f or visit data, not yet signed by the author as of lower back pain Goals (unrecognized section and content) Goals may be documented in a n alternate sectionGoals may be documented in an alternate sectionGoals may be documented in an alternate section Care Teams (unrecognized sec tion and content) Team Status: Active Member Role Status Dates Dr. Harshil Vincent MD Family Provider Active [facility] Primary Care Provider Active Team Status: Inactive Member Role Status Dates Dr. Cristela Campoverde DO Emergency Provider Active [facility] Primary Care Provider Active Team Status: Active Member Role/Relationship Status Dates Dr. Harshil Vincent MD Family Provider Active RE[facility] Flores Primary Care Provider Active Team Status: Inactive Member Role/Relationship Status Dates REYNOLD Flores Primary Care Provider Active Start: December 18, 2024 End: December 18, 2024 REYNOLD Flores Referring Provider Active Start: December 18, 2024 End: December 18, 2024 Dr. Johan Souza MD Attending Provider Active Start: December 18, 2024 End: December 18, 2024 FOR RECORDS PERTAINING TO PATIENTS WHO ARE [...] BE BASED ON THE PRIMARY CLINICAL RECORDS. [employer] [facility]. provides no warranty or guarantee of the accuracy or completeness of information in this document.
[2025-02-02 07:15] LABS: Hematocrit 47.1 % (40-54); Hemoglobin 15.5 g/dL (13.0-16.5); Immature Granulocytes Count 0.020 X10^3/uL (0.0-0.0); Mean Corp Hgb Conc 32.9 g/dL (32-36); Mean Corpuscular Volume 91.8 fL (80-94); Mean Platelet Vol. 10.3 fl (6.2-12.0); NRBC Flagged by Analyzer 0 % (0-5); Platelet Count 240 K/mm3 (150-450); RBC Distribution Width CV 13.2 % (11.6-14.6); RBC Distribution Width SD 45.1 fl (35.1-43.9); Red Blood Count 5.13 M/mm3 (4.6-6.2); White Blood Count 8.8 K/mm3 (4.4-11.0)
[2025-02-02 07:31] LABS: Creatinine, Urine (random) 225.00 mg/dL (39.00-259.00); Microalbumin,Random Urine < 12.0 mg/L (<20 mg/L)
[2025-02-02 08:25] LABS: PSA,Total - Annual Screen 0.46 ng/mL (0.02-4.00)
== END | disposition home or self-care (01) ==
LOC: LAB 06:47
PROVIDERS: PCP Nurse Practitioner Family; Referring Provider Nurse Practitioner Family; Visit Provider Nurse Practitioner Family
DX: E11.69 Type 2 diabetes mellitus with other specified complication (principal); Z12.5 Encounter for screening for malignant neoplasm of prostate; E66.9 Obesity, unspecified
CPT/HCPCS: 36415; 82043; 82570; 83036; 84153; 84443; 85025; G0103

== ENCOUNTER 2025-02-19 17:30 | Outpatient (RCR) | payer OTHER, SELFPAY ==
[2025-02-12 11:47] VITALS: BMI 35.2
--- NOTE | 2025-02-13 17:51 | HP.PTEVAL ---
Patient's Visit Information Visit Information Visit Information: SHERMAN ESPOSITO is a 54 year old M referred to Physical Therapy by Tonya Berry, [employer] with a diagnosis of acute LBP. Date of Evaluation: 02/13/25 Physical Therapist: Shorty Berry, DPT, OCS, CSCS Visit Plan Frequency: 2-3x /Week Duration: 4-6 Weeks Plan: 2-3x/week Merle based ext progression when able but starting with TENS on pillows and wean down to flat and then extend, may need PA mobs lumbar, TENS with ice, and progress to strength when tolerated.Postural focus with lumbar roll when ablee See Shorty if questions HEP is prone on pillows 10-15 min 3-4x/day with slow extension to toleerance and symptoms, Use Tens unit and wh walker which he has at home. Subjective Subjective: R LB butt pain. Went to doctor yesterday and shot with toradol. intermediate issues, this one started two weeks ago after digging holes and doing outdoor work. 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 Had therapy 3-4 yrs ago and which did not help. Is on vacattion this week but worked up til Wednesday. Sometimes sits at work. Sitting is OK but getting up and walking is rough. Xray yesterday. sleep not great, hard to get comfortable and rolling hurts. pain is R LB and into groin. No numbness or tingling. Can't sit on hard things. Going to bathroom is difficult to sit. Pain R LB: Pain Intensity (Out of 10): 9 Pain Intensity Range: 6 and 9 Objective Objective: Walks greatly labored hunched over and R antalgic, difficult to WB R and sharp pain with movements. Trasnfers to stadn challenging adn painful. Bed transfers I but painful with shear force. reflexes 1/3 patella adn achilles B. Sensation LE WNL to gross lgiht touch B LE. Difficult to test strength due to sharp R buttock back pain with contractions. 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 prone on pillows 4 pillows comfortable to 3/10 form 9/10 3 pillows 5/10 and tighter. 2 pillows 4/10 1 pillow more groin pain and 7/10, put one back. Walked out much taller and less spasms and feeling btr although still some sharp pains even with wh walkeer. Balance/Special Test Scores Oswestry Low Back Score: 34 Goals Goal 1:: sit to stand to sit without evidence of pain Goal Time Frame: 4-6 Weeks Goal 2:: Pain in LB 2/10 at worst and 90% better Goal Time Frame: 4-6 Weeks Goal 3:: Walk without antalgia Goal Time Frame: 4-6 Weeks Goal 4:: back oswestry 8 or better Goal Time Frame: 4-6 Weeks Goal 5:: Work without increased pain Goal Time Frame: 4-6 Weeks Goal 6:: sleep all night without interruption from pain Rehabilitation Potential Physical Therapy Diagnosis: limited WB and movement in lumbar causing QOL issues. Rehabilitation Potential: Fair Anticipated Interventions Patient/Client Instruction: Educate patient on: Condition For the Purpose of:: To decrease pain, To increase ROM and To improve nutrient delivery to tissue Therapeutic Exercise to Include: Flexibilty training, Passive ROM, Active ROM, Dynamic Lumbar Stabilization and Merle Exercises For the Purpose of:: To decrease pain, To increase ROM and To improve nutrient delivery to tissue Manual Therapy Techniques to Include: Mobilization, Passive ROM and Soft tissue mobilization For the Purpose of:: To decrease pain and To increase ROM TENS: Yes Cryotherapy (ice pack, ice massage): Yes Text: Thank you for the opportunity to evaluate your patient. For Medicare and Medicare HMO plans, please review the plan of care and approve it. It will need to be FAXED BACK to us at [phone] for Medicare purposes. For Medicare only, by signing this I certify the plan of care. Please let me know if there are questions or concerns regarding this plan of care. Physician Signature: Date:
--- NOTE | 2025-04-25 14:37 | HP.PT.NRP ---
Patient Information Patient Information: SHERMAN ESPOSITO was seen in my office for initial evaluation on 02/13/25. The following Plan of Care was established for this patient: POC Established Initial Frequency: 2-3x /Week Initial Duration: 4-6 Weeks Anticipated Interventions Patient/Client Instruction: Educate patient on: Condition For the Purpose of:: To decrease pain, To increase ROM and To improve nutrient delivery to tissue Therapeutic Exercise to Include: Flexibilty training, Passive ROM, Active ROM, Dynamic Lumbar Stabilization and Scott Exercises For the Purpose of:: To decrease pain, To increase ROM and To improve nutrient delivery to tissue Manual Therapy Techniques to Include: Mobilization, Passive ROM and Soft tissue mobilization For the Purpose of:: To decrease pain and To increase ROM TENS: Yes Cryotherapy (ice pack, ice massage): Yes Last Seen Last Seen: This patient was last seen in our office 02/19/25. Pertinent comments regarding their Physical therapy will appear below: Pt seen 4 visits of POC and was improving. He stopped attending the rest of his POC. at this point, it has been over 6 weeks and I will discontinue from my care. At this point I will be discontinuing this patient from physical therapy. I would be happy to see this patient again in the future if found appropriate by the physician. Thank you! Shorty Berry, DPT, OCS, CSCS Balance/Gait/Functional tests Balance/Special Test Scores Oswestry Low Back Score: 34
== END 2025-02-19 19:00 | disposition home or self-care (01) ==
LOC: PT 17:30
PROVIDERS: PCP Nurse Practitioner Family; Referring Provider Nurse Practitioner Family; Visit Provider Nurse Practitioner Family
DX: M54.10 Radiculopathy, site unspecified (principal); M54.50 Low back pain, unspecified
CPT/HCPCS: 97014; 97110; 97161; G0283